=== PATIENT | male | born 1950 | race Caucasian/White ===

== ENCOUNTER 2018-11-22 14:02 | Inpatient (IN) | payer MEDICARE ==
[~2018-11-22] VITALS: Ht 170.2 cm; Wt 88.1 kg
[2018-11-22] MEDS ORDERED: OMEPRAZOLE20 MG PO (14:37)
[2018-11-22] MEDS ORDERED: NEURONTIN300 MG PO (14:37)
[2018-11-22] MEDS ORDERED: NORTRIPTYLINE H25 MG PO (14:37)
[2018-11-22] MEDS ORDERED: LIPITOR20 MG PO (14:38)
[2018-11-22] MEDS ORDERED: ROBAXIN-750750 MG PO (14:38)
[2018-11-22] MEDS ORDERED: LAMICTAL XR50 MG PO (14:39)
[2018-11-22] MEDS ORDERED: LOSARTAN POTASS25 MG PO (14:39)
[2018-11-22] MEDS ORDERED: GLUCOPHAGE500 MG PO (14:40)
--- NOTE | 2018-11-22 18:46 | NUR ---
NEW ADMIT TO THE FLOOR. PT SLEEPING, AROUSES TO VERBAL STIMULI, BUT THEN QUICKLY RETURNS TO SLEEP. PT SNORING LOUDLY. VS TAKEN AND ARE STABLE. AT BEDSIDE. PT HAS A SKIN TEAR TO LEFT AND RIGHT FOREARM(S), QUARTER SIZED ON BOTH. PER PT HAD THESE PRIOR TO ADMIT. STATES PT IS UNSTABLE ON FEET AND FREQUENTLY BUMPS THINGS WHEN HE WALKS ABOUT AT HOME. PT USES A CANE AND WALKER AT HOME. PT IS ON 2L OXYGEN, SAT LEVEL IS 96%. IV FLUIDS STARTED; NS@ 125ML/HR. STATES SHE IS UNABLE TO SPEND THE NIGHT. PT IS CURRENTLY A 1:1 WITH CUSTOMER CARE MANAGER, HE HAS DEMENTIA AND IS UNPREDICTABLE D/T DECREASE IN MENTATION UPON ADMIT. CALL LIGHT WITHIN REACH. CLOSE TO RN STATION.
--- NOTE | 2018-11-22 19:10 | NUR ---
SHIFT REPORT RECEIVED FROM DAYSHIFT ANGELA LEVIN. PT RESTING, RR EVEN AND UNLABORED. HX DEMENTIA. PT 1:1, CRISELDA EVANS IN ROOM WITH PT. CALL LIGHT IN REACH, BED ALARM ON.
--- NOTE | 2018-11-22 20:16 | NUR ---
Pt has been waking up off and on, he responded when I said "Hi" with a "hello" and fall asleep moments later.
--- NOTE | 2018-11-22 21:07 | NUR ---
ASSESSMENT COMPLETE. SCHEDULED MEDICATIONS GIVEN (SEE EMAR). PT VERY DROWSY, BUT AROUSABLE. WHEN ASKED IF PT HAD PAIN, PT STATED, "NO". PT PLACED ON CPOX, PT ON 2LNC, 02 SAT AND HR WNL. SCHEDULE CLERK CRISTINA IN ROOM. BED ALARM ON. IV FLUIDS INFUSING, SITE WNL. CALL LIGHT IN REACH.
--- NOTE | 2018-11-22 21:37 | NUR ---
ROUNDED CHARGE. PATIENT IS RESTING IN BED WITH EYES CLOSED. PAPER TESTER IN ROOM. BREATHING IS EVEN AND UNLABORED, RR 18. CALL LIGHT IN REACH. BED ALARM ON FOR SAFETY. CALL LIGHT IN REACH.
--- NOTE | 2018-11-22 23:33 | NUR ---
PT IN BED RAMBLING TO SELF AND NURSING STAFF. 2LNC IN PLACE, O2 SAT 97%, HR 84. PT STATES, "I HAVE A BIKE" AND "I WANNA GO HOME NOW". PT CONTINUES TO TALK TO SELF. CRISELDA EVANS IN ROOM WITH PT. CALL LIGHT IN REACH. BED ALARM ON. IV FLUIDS INFUSING, SITE WNL.
--- NOTE | 2018-11-23 00:21 | NUR ---
WITH THE HELP OF CRISELDA EVANS WE CHANGED PT'S ATTEND INCONTINENT OF URINE. STAYED IN THE ROOM FOR A BIT TO HELP CRISELDA EVANS WITH TRYING TO CALM PT .
--- NOTE | 2018-11-23 00:42 | NUR ---
pt took leads off multiple times and wants to go home. he tries to get out of bad to leave and i reassured him he is staying the night.
--- NOTE | 2018-11-23 00:50 | NUR ---
CRISELDA JANUARY IN ROOM WITH PT. PT 1:1. PT BECOMING BELIGERENT, YELLING PROFANITIES AT STAFF. PT SCRATCHED SENIOR SHIPPING CLERK. CRISELDA JANUARY AND SENIOR SHIPPING CLERK MANJU IN ROOM WITH PT. PT ATTEMPTING TO BITE AND FIGHT WITH NURSING STAFF. THIS RN NOTIFIED BY ANGELA HEREDIA OF PT'S INCREASING AGITATION. DR CLAY NOTIFED, TELEPHONE ORDER READ BACK FOR 0.5MG IM ATIVAN, MAY REPEAT X1. NO TIME PARAMETERS BETWEEN INTIAL DOSE AND REPEAT DOSE. PT ALSO PULLED OUT IV. IV SITE REINFORCED AND WRAPPED BY SENIOR SHIPPING CLERK. 0.5MG ATIVAN IM ADMINISTERED BY SENIOR SHIPPING CLERK. PT CURRENTLY FIGETING IN BED, TALKING TO SELF. CRISELDA JANUARY IN ROOM.
--- NOTE | 2018-11-23 01:53 | NUR ---
PT'S SELVIN CALLED FOR PT UPDATE. UPDATE PROVIDED, QUESTIONS ANSWERED.
--- NOTE | 2018-11-23 03:26 | NUR ---
PATIENT IS ATTEMPTING TO HIT OPERATIONS RESEARCH ANALYST. DINING ROOM TABLES SET UP ATTENDANT IN ROOM ATTEMPTING TO REDIRECT. UNABLE TO REDIRECT PATIENT. PATIENT IS YELLING PROFANITIES. PATIENT IS TRYING TO HIT STAFF. PATIENT GIVEN PRN MEDICATION PER MAR TO HELP WITH AGITATION. DINING ROOM TABLES SET UP ATTENDANT IN ROOM. CALL LIGHT IN REACH.
--- NOTE | 2018-11-23 04:48 | NUR ---
PT HAD A VERY BUSY AND ROGUH NIGHT. PT WAS INITIALLY COMPLIANT, BUT BECOME INCRESINGLY BELIGERENT TO STAFF. PT BEGAN TO YELL, FIGHT, AND SWEAR AT NURSING STAFF. ATIVAN X2 ADMINISTERED. PT REFUSES TO WEAR TELEMETRY AND PULLED OUT IV CATHETER. HX DEMENTIA. PT ON CLEAR LIQUID DIET, NO NAUSEA, BOWEL TONES ACTIVE. PT INCONTINENT. PT IS A ONE ON ONE W/ BED ALARM.
--- NOTE | 2018-11-23 05:44 | NUR ---
ASSESSMENT COMPLETE. NO NEW CONCERNS. ONE ON , VIDEO GAME CREATOR JANUARY IN ROOM WITH PT. ANGELA HERNANDEZ ATTEMPTING TO PLACE NEW IV. PT APPEARS COMFORTABLE, ALLOWED TO REST. CALL LIGHT IN REACH, BED ALARM ON.
--- NOTE | 2018-11-23 06:20 | NUR ---
NEW IV STARTED AND IV FLUIDS INFUSING. PATIENT TOLERATED IV START WELL. PATIENT CONTINUES TO RESET IN BED. ALARM ON. CALL LIGHT IN REACH.
--- NOTE | 2018-11-23 07:00 | NUR ---
RECIEVED BEDSIDE REPORT FROM ANGELA WALDROP. PT IN BED, SLEEPING SOUNDLY. BED ALARM ON, CURTAIN AND DOOR OPEN, ROOM IN VIEW OF NURSES' STATION.
--- NOTE | 2018-11-23 07:55 | EKG ---
[facility] [address] [place], [place] [address] Signed Normal sinus rhythm Normal ECG No previous ECGs available Confirmed by BRUCE CLAY MD ([id number]) on 11/23/2018 7:55:10 AM Electronically Signed By: BRUCE CLAY MD 11/23/18 0755 PATIENT NAME: PREETI KAT Electrocardiogram DATE OF : 48 PHYSICIAN: BRUCE CLAY MD REPORT #: [id number] REPORT IS CONFIDENTIAL AND NOT TO BE RELEASED WITHOUT AUTHORIZATION
--- NOTE | 2018-11-23 09:43 | NUR ---
PT IN BED, DR. CLAY AND CRISELDA TEJEDA IN ROOM WITH PT. PT AGITATED, GIVEN ZYPREXA 5 MG ODT.
--- NOTE | 2018-11-23 09:49 | NUR ---
PT IN ROOM SPEAKING WITH HIS . LOUDLY STATING THAT HE IS GOING TO LEAVE THE HOSPITAL TODAY TO GO HOME. PT'S LOUDLY TELLING PT "NO YOU ARE NOT". PT'S EXPLAINED TO PT THAT HE WOULD NEED TO SPEND AT LEAST ONE MORE NIGHT IN THE HOSPITAL. PT'S SITTING AT PT'S BEDSIDE. BED ALARM ON.
--- NOTE | 2018-11-23 10:00 | NUR ---
CARE CONFERENCE PRESENT DR CLAY, MYSELF, NURSING STAFF, PT AND HIS . TALKED BRIEFLY WITH THE PT , PT YELLING AND YELLING BACK AT PT DURING THIS. ATTEMPTING TO DO HIS ASSESSMENT AND THE KEPT YELLING AT PT TO "JUST SHUT UP, YOU DON'T KNOW WHAT YOU ARE TALKING ABOUT, YOUR CRAZY" TRIED TO DIVERT THE FROM PT VOICE AND TALK WITH ME REGARDING HIS CASE MANAGEMENT ASSESSMENT, DR CLAY ASKED HIS HX AND TOLD HER WHAT SHE FELT AT THIS POINT IN HIS CARE. MEANWHILE PT PUTTING LEG THROUGH THE SIDERAIL OF THE BED, ATTEMPTING TO PUT IT BACK IN THE BED. SELVIN (PT ) WAS TOLD THAT WE ARE ATTEMPTING TO SORT THINGS OUT ABOUT WHAT IS GOING ON WITH HER AND WE WOULD KEEP HER UPDATED.
--- NOTE | 2018-11-23 10:20 | NUR ---
PT AGITATED, STATING "THIS IS JUST ANOTHER RING AROUND MY NECK", "I WANT TO WALK HOME", "SEND ME TO ALCOHOL JI", ATTEMPTING TO GET UP TO LEAVE. GAVE ATIVAN ORDERED.
--- NOTE | 2018-11-23 10:33 | NUR ---
PT VERY AGITATED, ATTEMPTING TO LEAVE FLOOR, JOE TEJEDA JIM, AND NACHO, RNS IN ROOM WITH PT. EULOGIO AND ILEANA SPOKE WITH PT, ENCOURAGE HIM TO GET BACK INTO THE BED. AFTER SEVERAL MINUTES OF ENCOURAGEMENT AND COAXING PT DID LAY BACK IN BED.
--- NOTE | 2018-11-23 10:50 | NUR ---
PT RESTING QUIETLY IN BED, EYES CLOSED, SLEEPING SOUNDLY. NO S/S DISTRESS OR DISCOMFORT NOTED.
--- NOTE | 2018-11-23 12:28 | NUR ---
PT DROWSY BUT VERY AGITATED, CALLING OUT INCOMPREHENSIBLE WORDS, STRIKING AT STAFF WITH FISTS AND WITH FEET/LEGS. PT ATTEMPTING TO CLIMB OVER RAILING WITH EYES CLOSED, FLINGING LEG OVER RAILING, ATTEMPTING TO PULL SELF UP OVER RAIL WITH HANDS. PT HAD EYES CLOSED THROUGHOUT THIS. ATTEMPTED VERBAL REDIRECTION AND COMFORT, EDUCATION. ATTEMPTED TO OFFER URINAL MULTIPLE TIMES, WHICH PT THEN TRIED TO THROW AT STAFF. PT LEAKING SMALL AMOUNTS OF URINE WITH MOVEMENTS BUT CONTINUED TO REFUSE TO ALLOW STAFF TO ASSIST HIM IN USING URINAL, AND REFUSING TO USE URINAL HIMSELF. ATIVAN GIVEN BY ANGELA MORALES ORDERED BY DR. CLAY. PT HAS CALMED SOME SINCE THIS, STILL MUTTERING, BUT NOT ATTEMPTING TO HIT, KICK, OR PULL SELF OVER BED RAILINGS.
--- NOTE | 2018-11-23 13:00 | NUR ---
CALLED AND GAVE A MESSAGE TO JOSH AT [facility] THAT DR CLAY WOULD LIKE TO SPEAK WITH DR BROOKE(PT AT [facility]) AND SHE STATED SHE SENT A MESSAGE TO HIM AND HE WOULD CALL DR CLAY BACK. DR CLAY STATED THAT SHE RECIEVED A CALL FROM HIM A SHORT TIME LATER.
--- NOTE | 2018-11-23 15:09 | NUR ---
PT RESTING IN BED. EYES OPEN, CALM. ASKED PT IF HE NEEDED TO URINATE, PT RESPONDED THAT HE DID. ATTEMPTED TO ASSIST PT IN USING URINAL, PT ATTEMPTED TO VOID, BUT AFTER A COUPLE MINUTES STATED THAT HE DID NOT NEED TO GO. OFFERED WATER, PT DECLINED.
--- NOTE | 2018-11-23 15:25 | NUR ---
PT HAS A CONGESTED, NONPRODUCTIVE COUGH. LUNGS HAVE WHEEZES IN UPPERS AND ARE COARSE THROUGHOUT. OXYGEN SATURATON LEVEL ON RA 98%. NOTIFIED DR. CLAY OF THIS CHANGE IN PT ASSESSMENT. NO NEW ORDERS AT THIS TIME. PT SITTING IN BED, HOB ELEVATED.
--- NOTE | 2018-11-23 16:37 | NUR ---
PT RESTING QUIETLY, EYES CLOSED, SNORING. PT IN BED, HOB ELEVATED. BED ALARM ON.
--- NOTE | 2018-11-23 16:50 | NUR ---
TALKED WITH JOSH AT [facility] TO SEE WHAT SHE COULD DO OR HELP US WITH, SHE RECOMMENDED THAT I FILL OUT A [facility] FORM AND GET THAT SENT IN. I FILLED IT OUT AND FAXED IT TO THE # I WAS GIVEN--[phone]. I THEN RECIEVED A CALL FROM MAHNAZ AT THE [facility] SERVICE PORTION OF [facility]. SHE REQUESTED RECORDS BE SENT TO HER AND JOSH ALSO HAD REQUESTED RECORDS. I SENT FACE SHEET, ER NOTES, H AND P, PROG NOTES, IMAGING AND LABS TO THEM. RECIEVED FAX CONFIRMATIONS OF THESE ALSO.
--- NOTE | 2018-11-23 17:15 | NUR ---
PT CALLED AND WAS CONCERNED ABOUT THE PT AND HOW HE IS DOING, EXPLAINED THAT AT THIS TIME HE IS RESTING IN THE BED AND THAT WE WOULD KEEP HER UPDATED AND SHE SAID THEY ASKED ME TO STAY AWAY. I STATED THAT HE SEEMS TO GET MORE AGITATED WHEN SHE IS WITH HIM, AND SHE STATED SHE WOULD PROBABLY JUST STAY HOME ALOT THEN.
--- NOTE | 2018-11-23 19:20 | NUR ---
PT IN BED, YELLING OUT, TRYING TO GET OUT OF BED, WITH 2 EMBROIDERY DESIGNER'S PRESENT IN ROOM FOR SAFETY.
--- NOTE | 2018-11-23 20:28 | NUR ---
PATIENT IS INCREASINGLY AGITATED. PATIENTS EVENING MEDICATIONS CRUSHED AND GIVEN IN CHOCOLATE PUDDING. PATIENT STRUGGLED WITH FOLLOWING DIRECTIONS. PATIENT IS INCREASINGLY COMBATIVE. PATIENT IS VERBALLY AND PHYSICALLY ABUSIVE TOWARDS STAFF. PRN MEDICATION GIVEN PER ORDER. CARTRIDGE ASSEMBLER, CHARGE, RN, AND SEURITY IN THE ROOM. PATIENT FINALLY CALMED DOWN ENOUGH TO CHANGE BEDDING AND ATTENDS. NEW ATTEND IN PLACE. PATIENTS BED ALRM OS ON FOR SAFETY. STAFF IN DIRECT OBS OF PATIENT.
--- NOTE | 2018-11-23 20:37 | NUR ---
pt RESTING, SNORING. UNABLE TO ASSESS LOC. PULSES STRONG. DIFFICULT TO ASSESS LUNG SOUNDS WITH SNORING, BUT COARSE THROUGHOUT. TELE OFF DUE TO pt REFUSAL. IV INFUSING. BED ALARM ON. CURTAIN AND DOOR OPEN TO THE NURSES STATION.
--- NOTE | 2018-11-23 21:40 | NUR ---
RECEIVED PHONE CALL FROM PT SELVIN, INQUIRING HOW PT WAS. "SLEEPING". SELVIN STATED SHE HAD TO LEAVE HER VISIT EARLIER TODAY PT THOUGHT SHE WAS GOING TO "TAKE HIM HOME", BUT UNTIL SHE GETS HELP AT HOME, STATES "JENAE, MINER PLACER" IS [facility] STATES "I CAN'T TAKE CARE OF HIM IF HE IS ACTING OUT".
--- NOTE | 2018-11-23 22:13 | NUR ---
V/S AND I&O DONE. CHANGED SOAKED ATTENDS. BED ALARM ON.
--- NOTE | 2018-11-24 00:35 | NUR ---
pt RESTLESS. ENTERED ROOM WITH CRISELDA WEEMS. pt RESPONDED TO QUESTIONS WITHOUT MAKING SENSE. BECAME MORE AGITATED REQUIRING THIS RN AND FAUSTINA TO HOLD HANDS TO PREVENT STAFF INJURY. CHARGE NURSE INFORMED. ATIVAN ADMINISTERED PER ORDER. BY ANGELA NUNES, AND ANGELA IZAGUIRRE. pt CONTINUED TO BECOME AGITATED. DEPENDS CHANGED. IV TUBING LEAKING BLOOD. IV PATENT, TUBING CHANGED. IVF INFUSING. pt AGITATION DECREASED. ABLE TO DRINK SOME JUICE. LIGHTS OFF. pt AGREABLE TO RESTING. CURTAIN AND DOOR OPEN TO NURSES STATION.
--- NOTE | 2018-11-24 02:48 | NUR ---
pt ATTEMPTING TO EXIT BED. THIS RN AND CRISELDA WEEMS TO ROOM. DEPENDS SATURATED. PERICARE DONE WITH ASSISTANCE FROM CRISELDA PEREZ. RESTLESS, REORIENTED. OFFERED JUICE. ASSESSMENT DONE. FAUSTINA IN ROOM FOR 1:1.
--- NOTE | 2018-11-24 05:18 | NUR ---
pt RESTED ON AND OFF DURING SHIFT. 1:1. FREQUENTLY REORIENTED AND REMINDED TO REMAIN IN BED. ATIVAN X1 FOR AGITATION. pt REFUSES TO WEAR TELE UNIT. INCONTINENT. IVF INFUSING. REGULAR DIET, ONLY A FEW SIPS OF JUICE DURING SHIFT. BED ALARM ON.
--- NOTE | 2018-11-24 06:36 | NUR ---
pt RESTLESS AND AGITATED. PRN ATIVAN (SEE MAR). pt RESTING 1:1.
--- NOTE | 2018-11-24 08:29 | NUR ---
ATTEMPTED TO GIVEN THE PATIENT HIS MORNING MEDICATION AND HE REFUSED AT THIS TIME WITH MULTIPLE NURSES TRYING AND 5 STAFF AT BEDSIDE. PATIENT WAS VERY COMBATIVE WITH STAFF ATTEMPTING TO HIT, KICK AND BITE. DOCTOR OBED NOTIFIED AND 50 MG OF BENADRYL GIVEN IV AT THIS TIME. ATTENDS CHANGED AND MARIO CARE DONE. DURING THIS PATIENT DID SPIT AT STAFF WHEN THEY ATTEMPTED TO GIVE HIM A BITE OF YOGURT.
--- NOTE | 2018-11-24 09:01 | NUR ---
[facility] CONTACTED AND REHABILITATION NURSE WILL BE HERE SOON TO EVALUATE.
--- NOTE | 2018-11-24 09:38 | NUR ---
PATIENT NOW A 2 ON 1 DUE TO BEING VERY COMBATIVE. TOOK 5 STAFF IN ROOM TO CHANGE DEPENDS AND GIVE MEDS. PATIENT REFUSES TO EAT.
--- NOTE | 2018-11-24 09:51 | NUR ---
ASSUMED CARE FOR PATIENT, REPORT RECIEVED FROM ANGELA BONE AND DR. CLAY. PATIENT VITALS ARE STABLE, PRESENTLY SLEEPING, ATTENDS ARE DRY.
--- NOTE | 2018-11-24 10:07 | NUR ---
PATIENT IS SLEEPING, APNEA OBSERVED WITH 89% SATS. 3L OF O2 VIA NASAL CANNULA PLACED AND PATIENT IS 95%
--- NOTE | 2018-11-24 10:57 | NUR ---
PATIENT IS SLEEPING, OCCASIONALLY RESTLESS. OXYGEN IS ON AT 2L, NOTED INACCURATELY 3L IN PREVIOUS NOTE.
--- NOTE | 2018-11-24 12:00 | NUR ---
LATE ENTRY: PATIENT WAS COMBATIVE AND WAS THREATENING STAFF, I WAS HOLDING HIS RIGHT ARM DURING THIS STRUGGLE AND HE SPIT HIS YOGURT AT ME. LATER THAT DAY HIS CAME IN AND IT WAS PERFECT TIMING BECAUSE [facility] HAD JUST ARRIVED BACK TO DO THEIR ASSESSMENT. HIS WAS STANDING IN FRONT OF ME AT MY COMPUTER AND SHE WAS ASKING HOW HE WAS TODAY AND I COMMENTED THAT I WAS ISRA TO HAVE GLASSES ON BECAUSE THEY CAUGHT THE YOGURT HE SPIT AT ME. SHE REPLIED WITH THAT SON OF A BIT*H, I WOULD HAVE KNOCKED HIM OUT IF HE TRIED THAT TO ME. BUT ALSO MENTIONED THAT HE KNOWS BETTER THAN TO SPIT AT HER. SHE THEN TOLD ME THAT WE NEEDED TO JUST OVER MEDICATE HIM TO KNOCK HIM OUT. THAT WAY WE DONT HAVE TO DEAL WITH HIM. I TOLD HER WE DONT DO THAT.
--- NOTE | 2018-11-24 12:11 | NUR ---
WILLIE WITH [facility] IS AT NURSES STATION REVIEWING CHARTS AT THIS TIME BEFORE ASSESSING PT
--- NOTE | 2018-11-24 13:20 | NUR ---
[facility] IN TO ASSESS PATIENT, UNABLE TO COMPLETE THIS DUE TO PATIENT BEING MEDICATED, PLAN TO TRY AND ASSESS LATER TODAY WHEN HE WAKES UP. PATIENT IS ON ROOM AIR WITH 96% O2 SATS, IV FLUID CONTINUES. PATIENT IS OCCASIONALLY AGITATED, BUT IS NOT FULLY AWAKE OR ABLE TO GET OUT OF BED. PATIENT DENIES PAIN, UNABLE TO HAVE LUNCH DUE TO CONFUSION.
[2018-11-24] MEDS ORDERED: VENTOLIN HFA18 GM INH (13:41)
[2018-11-24] MEDS ORDERED: SYMBICORT 80-10.2 GM INH (13:42)
[2018-11-24] MEDS ORDERED: ALUM-MAG HYDRO360 ML PO (13:43)
[2018-11-24] MEDS ORDERED: ARTHRITIS PAI42.5 GM TOP (13:45)
[2018-11-24] MEDS ORDERED: REFRESH PLUS1 EACH OPTH (13:47)
[2018-11-24] MEDS ORDERED: VITAMIN D1000 UNI1 PO (13:48)
[2018-11-24] MEDS ORDERED: FISH OIL 1,0001 EAC3 PO (13:49)
[2018-11-24] MEDS ORDERED: NEURONTIN300 MG PO (13:50)
[2018-11-24] MEDS ORDERED: IBU600 MG PO (13:52)
[2018-11-24] MEDS ORDERED: LAMICTAL150 MG PO (13:53)
[2018-11-24] MEDS ORDERED: ROBAXIN500 MG PO (13:54)
[2018-11-24] MEDS ORDERED: DAILY VITAMIN1 EAC3 PO (13:57)
[2018-11-24] MEDS ORDERED: PAMELOR50 MG PO (13:58)
[2018-11-24] MEDS ORDERED: KLOR-CON 1010 MEQ PO (13:59)
[2018-11-24] MEDS ORDERED: LIPITOR40 MG PO (14:07)
--- NOTE | 2018-11-24 14:07 | NUR ---
MED REC COMPLETE WITH [facility]
--- NOTE | 2018-11-24 15:28 | NUR ---
PATIENT IS MORE AWAKE, ABLE TO HAVE SEVERAL SIPS OF WATER AND 1/2 CUP OF APPLESAUCE. PATIENT IS ABLE TO ANSWER SOME QUESTIONS, LIKELY CALL [facility] AND HAVE THEM RETURN TO EVALUATE PATIENT.
--- NOTE | 2018-11-24 17:15 | NUR ---
PT WAS HERE DURING THIS AFTERNOONS VISIT WITH PT.
--- NOTE | 2018-11-24 17:22 | NUR ---
[facility] IN TO SEE PATIENT. PATIENT'S CAME IN TO SPEAK WITH [employer], BUT DID NOT VISIT .
--- NOTE | 2018-11-24 17:23 | NUR ---
PATIENT HAS BEEN ABLE TO SLEEP TODAY, MEALS HAVE BEEN PASSED ON. Close CAME IN TWICE TO TALK TO PATIENT. PLAN IS FOR [facility] TO DISCUSS WITH V.A. PLACEMENT POSSIBILITIES. PATIENT HAS BEEN INCONTINENT ON MULTIPLE OCCASIONS. PATIENT ABLE TO HAVE SIPS OF WATER AND APPLESAUCE THIS EVENING. HE CONTINUES TO BE EASILIY AGITATED WITH MULTIPLE STEP PROCEDURES/CARE INTERVENTIONS.
--- NOTE | 2018-11-24 17:25 | NUR ---
HAD SEVERAL PHONE CONVERSATIONS THROUGHOUT THE DAY WITH JOSH AND MAHNAZ AT THE [facility], JOSH GAVE ME THE NUMBER OF A FACILITY IN [facility] @ [phone] EXT [phone]. SHE STATED SHE IS NOT SURE IF THIS IS APPROPRIATE FOR THIS VET OR NOT.
--- NOTE | 2018-11-24 19:07 | NUR ---
SHIFT REPORT RECEIVED AT BEDSIDE. PATIENT IN BED WITH EYES OPEN. REPLIES "CAGLE RASHAD" WHEN ASKED IF HE KNOWS WHERE HE IS. OFFERED PATIENT SIPS OF WATER WHICH HE TOLERATED WELL. PATIENT REMAINS 1:1 AT THIS TIME FOR SAFETY. APPEARS CALM AT THIS TIME.
--- NOTE | 2018-11-24 20:47 | NUR ---
PATIENT REMAINS A 1:1 PER STAFF ASSIGNMENT. HAS BEEN RESTING EASILY IN BED SINCE START OF SHIFT. PATIENT COMPLAINT WITH MEDICATIONS AND VITAL SIGNS. PATIENT'S CALLED AND STAFF ASSISTED HIM IN SPEAKING WITH HER ON THE PHONE. PATIENT ABLE TO HAVE CONVERSATION, HOWEVER SOME SPEECH IS SLURRED. PATIENT VERBILIZED CONCERNS WITH PATIENT'S POSSIBLE PLACEMENT FAR FROM HOME MENTIONED BY [employer], ASSURED THAT HER CONCERNS WOULD BE RELAYED TO CASE MANAGEMENT AND [facility]. PATIENT TOLERATING SIPS OF WATER WITH ASSISTANCE. DECLINES PUDDING OR CRACKERS. IV FLUIDS PER ORDER, SITE WNL. PATIENT HAS MULTIPLE BRUISES IN VARIOUS STAGES OF HEALING. SKIN TEAR ON RIGHT FOREARM COVERED, DRESSING C/D/I. PATIENT INCONTINENT OF URINE, ATTENDS CHANGED AND MARIO CARE DONE WITHOUT RESISTANCE. PATIENT TURNED TO LEFT SIDE TO PROMOTE SKIN INTEGRITY. PATIENT SNORING AND OCCATIONALLY APNEIC, O2 SAT 86& ON ROOM AIR. 2L O2 VIA NC PLACED WHILE SLEEPING. HEEL PROTECTORS IN PLACE. BED ALARM ON. IN CONSTANT LINE OF RN SIGHT.
--- NOTE | 2018-11-24 21:08 | NUR ---
PATIENT WAS SLEEPING AND BECAME AGITATED AND THRASHING AROUND IN THE BED. PATIENT APPEARED TO BE ASLEEP AT THIS POINT, POSSIBLE NIGHT TERRORS. WOKE PATIENT AND REORIENTED TO SURROUNDINGS. PATIENT THEN ABLE TO BE CALMED. OFFERED CRACKERS AND WATER, WHICH THE PATIENT TOLERATED WELL.
--- NOTE | 2018-11-24 21:55 | NUR ---
PATIENT BECOMING MORE RESTLESS. ATTEMPTING TO BED OUT OF BED. ATTEMPTED TO REORIENT PATIENT. HE IS CALM BUT CONFUSED. PRN MEDICATION FOR INSOMNIA PROVIDED. PATIENT ABLE TO SIP SOME WATER AND EAT A CRACKER. DENIES ANY FURTHER NEEDS. REMAINS 1:1
--- NOTE | 2018-11-24 22:46 | NUR ---
PATIENT APPEARS TO BE ASLEEP BUT IS CALLING OUT AND MAKING "GROWLING" NOISES. HOB ELEVATED, REPOSITIONED FOR COMFORT. PATIENT APPEARS COMFORTABLE, TALKING IN HIS SLEEP.
--- NOTE | 2018-11-25 00:30 | NUR ---
PATIENT CALLING OUT AND THRASHING IN BED. PRN ATIVAN PROVIDED. PATIENT'S ATTENDS HEAVILY SOAKED. MARIO CARE AND FRESH ATTENDS APPLIED. REPOSITIONED FOR COMFORT.
--- NOTE | 2018-11-25 03:10 | NUR ---
PATIENT SLEEPING SOUNDLY. OCCATIONAL CONGESTED COUGHING NOTED. RT EVALUATED PATIENT, UPPER AIRWAY WHEEZE HEARD. PATIENT O2 SAT 98% ON 2L NC. OCCATIONAL APNEA EPISODES NOTED. HOB ELEVATED.
--- NOTE | 2018-11-25 05:15 | NUR ---
PATIENT INCONTINENT OF LARGE AMOUNT OF URINE. PATIENT'S BEDDING AND ATTENDS CHANGED. POSITIONED FOR COMFORT. PATIENT INCREASINGLY AGITATED WITH CARE. ONCE PATIENT SETTLED HE APPEARS MORE AWAKE, RESPONDS TO HIS NAME BUT UNABLE TO ANSWER QUESTIONS APPROPRIATELY. ORAL CARE AND LIP BALM APPLIED. PATIENT REQUEST TV WHICH WAS TURNED ON FOR HIM. SIPS OF WATER OFFERED. PATIENT REMAINS 1:1 FOR SAFETY.
--- NOTE | 2018-11-25 06:46 | NUR ---
PATIENT WAS RESTLESS OCCATIONALLY THROUGHOUT THE NIGHT. FREQUENT DROWSY BUT EASILY AROUSABLE. DISORIENTED TO ALL, SPEECH SLURRED. 2L NC TO MAINTAIN O2 >88%. LUNG SOUNDS ARE CONGESTED AND PATIENT HAS OCCATIONAL CONGESTED COUGH. URINE OUTPUT QS, INCONTINENT. NO BM THIS SHIFT. IV FLUIDS PER ORDER, SITE WNL. PATIENT TOLERATING SIPS OF WATER WHEN OFFERED. TURN Q2H. SKIN TEAR ON RIGHT ARM COVERED. PATIENT REMAINS 1:1 FOR SAFETY, PRN ATIVAN X1.
--- NOTE | 2018-11-25 07:22 | NUR ---
Pt resting supine in bed, alert to voice and appears to be in no acute distress. Bed alarm on and pt offered and drinks some ice water at this time. pt tells offgoing nurse benton. Bedside report received from ANGELA Venegas. adrian geronimo updated. pt remains on 2lpnc for reports of desatting to 86% on room air in the night. Pt denie further needs and is within view of nursing station.
--- NOTE | 2018-11-25 08:33 | NUR ---
Pt tolorates approx 50% of breakfast and drinks 120mls of orange juice. Pt states "When do I get to see the doctor?" Pt assured md will be in to see him today. Pt is a/o to person though disoriented to date, time, place and when asked if he knows why he is here pt states "[facility] Pt assessment completed and pt mumbles sometimes incomprehensibly during exam. "can I get out of my walker?" pt resting in bed "I'm back at the gate, turn right." Pt denies needs and states he is comfortable. bed alarm on and fall lakisha and side rail cushions in place for safety. Respirations even and unlabored and pt appears to be in no acute distress.
--- NOTE | 2018-11-25 10:00 | NUR ---
SPOKE WITH WILLIE GUTIERREZ FROM [employer] AND HE STATED HE HAD BEEN ON THE PHONE WITH REZA--DR LOPEZ NURSE AND SHE TOLD HIM TO TRY THE [facility] [place] @ [phone] ASK FOR FAWN, STATING THAT REZA HAD TOLD HIM THEY HAD A LOCKED UNIT FOR PT WITH PSYCH ISSUES.
--- NOTE | 2018-11-25 10:40 | NUR ---
IV FOUND TO BE LEAKING, SLIGHT SWELLING NOTED TO IV SITE, NO REDNESS OR WARMTH. IV FLUIDS PAUSED AND SEVERAL NURSES AND RT IN TO ASSIST WITH NEW IV START. AFTER COBAN REMOVED AND SOME TAPE REMOVED FROM OLD IV SITE PT GRABS IV AND RIPS IV OUT OF LEFT FOREARM. PT SQUIRMING AND MUMBLING INCOMPREHENSIBLY. 18 GUAGE IV STARTED TO LEFT AC WITH SOME DIFFICULTY DUE TO PT KICKING AND ATTEMPTING TO BITE AND HIT AT STAFF. 1MG IV ATIVAN ADMINISTERED AFTER SEVERAL FAILED ATTEMPTS TO CALM PT DOWN. PT DENIED NEED FOR TOILET OR ICE WATER. BED ALARM ON AND PT REMAINS ONE ON ONE FOR SAFETY.
--- NOTE | 2018-11-25 11:04 | NUR ---
PT RESTING SUPINE IN BED EYES CLOSED AND RESPIRATIONS EVEN AND UNLABORED. O2 SAT 97% ON ROOM AIR, HR80 AND RR 18. PT REMAINS ONE ON ONE FOR SAFETY.
--- NOTE | 2018-11-25 12:54 | NUR ---
pt resting supine in bed, eyes closed and respirations even and unlabored. o2 sat 99% on RA, HR 75. Bed alarm on and pt remains one on one for safety.
--- NOTE | 2018-11-25 13:00 | NUR ---
I LATER SPOKE WITH REZA AT [facility], DR LOPEZ NURSE DOOR TENDER AND SHE STATED THAT SHE WOULD BE WILLING TO HELP AND THAT SHE IS AWAITING RECORDS FROM ONE OF THE OTHER OFFICES, AND SUGGESTED I GET A HOLD OF JOSH IN THE [facility] OFFICE I TOLD HER I HAVE BEEN TALKING WITH HER. I ALSO GAVE HER DR BERMUDEZ HOSPITALIST PHONE NUMBER DR CLAY WAS WANTING TO SPEAK WITH DR RUIZ THE PT PSYCHIATRIST AT THE [place]. SHE STATED SHE WOULD GET THE MESSAGE TO HIM SO THEY COULD HAVE A TO CONVERSATION ABOUT THIS PT PSYCH HISTORY.
--- NOTE | 2018-11-25 13:30 | NUR ---
DISCUSSION WITH DR CLAY REGARDING REFERRAL TO [facility] FOR POSSIBLE HELP IN PLACEMENT FOR PATIENT. SHE IS IN AGREEMENT. FORM FILLED OUT BY FULLING MACHINE OPERATOR JENAE SCOTT, FORM SENT BACK BY SECURE EMAIL TO ANGELA SANCHES.
--- NOTE | 2018-11-25 14:43 | NUR ---
CALLED [facility] AT [phone] TO DISCUSS PATIENT AND POSSIBLE PLACEMENT OPTIONS IN THE [place]. HE IS SENDING A REFERRAL FORM TO BE FILLED IN AND RETURNED TO GIVE TO THEIR CASE MANAGEMENT TEAM. HE WILL SEND THIS BY SECURE EMAIL.
--- NOTE | 2018-11-25 15:30 | NUR ---
Pt resting supine in bed, attends and chucks saturated with urine so pt was assisted in cleaning and changing attends with assistance from supervisor in charge and ANGELA Cruz. Pt tolerated well. Pt makes minimal responses and appears to remain drowsy but is alert intermittantly to voice and mumbles incomprehensibly. Pt assisted in turning to right lateral side and warm blanket provided. Assessment completed. VSS. Bed alarm on and pt remains a 1 on 1.
--- NOTE | 2018-11-25 16:41 | NUR ---
Pt slept much of day. alert to voice and oriented to person only. Pt mumbles moslty unintelligibly off and on through the day. Pt grew increasingly agitated after tolorating 50% of his breakfast and required prn x1 dose of iv ativan for agitation after pt ripped out iv and began swinging arms and biting at staff. Pt proceeded to sleep most of the day. Pt continues to mumble incomprehensibly off and on. Pt continues with congested but nonproductive cough. Pt has satted in mid to high 90's on room air throughout the day. pt has remained incontinant of large amounts of urine throughout the day. Pt receiving IV maintenance fluids as ordered. Pt has remained one on one throughout this shift due to safety risk. See case management note regarding status of potential placement.
--- NOTE | 2018-11-25 16:58 | NUR ---
PATIENTS CALLED TODAY TO CHECK ON HIM AND SAID TO KEEP HIM SLEEPING AND THAT SHE WAS NOT COMING IN TODAY.
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
--- NOTE | 2018-11-25 17:32 | NUR ---
Pt resting supine in bed, hugging himself. When pt asked if he would like an additional warm blanket pt states "yes warm blanket". Pt provided with warm blanket. Pt looks at dinner tray and motions towards it pt asked if he would like to eat some more of his dinner and pt states "yes". Pt up to high fowlers position and is assisted with eating. Pt eats approx 60% of dinner and approx 300 mls of juice. Pt is able to tell me his name and date of but when asked where he is pt states [facility]" Pt reoriented to place and situation. Pt assisted back down to position of comfort pt states "there" when head of bed was being lowered and when asked if pt is comfortable pt states "yeah". Pt resting in bed eyes closed and respirations even and unlabored. Pt then clearly states "can we speak in here freely?" Pt encouraged to speak his mind and then drifts back off to sleep.
--- NOTE | 2018-11-25 19:20 | NUR ---
REPORT FROM MIGUEL PATEL RN, RECEIVED IN PT ROOM. PT WITH EYES CLOSED, NO THRASHING OR HOLLERING OUT AT THIS TIME. IV INFUSING, LAC, COBAN WRAPPED AROUND ARM. ROOM AIR, SATING AT 98%. SEIZURE PADS IN PLACE, FALL MAT ON RIGHT SIDE OF BED ON FLOOR.
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
--- NOTE | 2018-11-25 21:23 | NUR ---
PT CALLED AT 2100, REPORT GIVEN. SHE WAS WONDERING ABOUT HEAD INJURY, ABOUT A BLADDER/UTI/KIDNEY INFECTION THE CAUSE OF HIS COGNITION. REASSURED . SHE EXPRESSED GREAT CONCERN ABOUT HIM BEING "SENT AWAY FROM [place]". REASSURANCE GIVEN THAT MAYBE THE ONLY OPTION TO FIND A PROVIDER THAT CAN MEET HIS NEEDS.
--- NOTE | 2018-11-25 22:24 | NUR ---
PT CURRENTLY SLEEPING, STIRS OCCASSIONALLY WITH MOUTH OPEN TRYING TO BITE THE LEFT ARM THAT IS WRAPPED WITH BLANKET, LEFT ARM WITH SEVERAL SLOUGHING SKIN FROM THE KCL LEAKING TO SKIN WHEN IV WAS DC, WELL FORMED BLISTERS NOTED IN BICEP. PREVENTING PT FROM FURTHER INJURY. PLAN TO REWRAP BICEP. PT REQUIRED THE ASSIST OF 4 STAFF TO START A NEW IV IN THE RIGHT WRIST, POWER TONG OPERATOR YASMANY ABLE TO PUT A 20 G IN R WRIST, PT TOLERATED POOR, TRYING TO HIT, BITE, KICK. MED WITH 1 MG ATIVAN PER IV. ATTEMPT TO DO A BLOOD PRESSURE WAS MET WITH RESISTANCE, ABLE TO GET OTHER VS. SATING AT 98% ON RA. NS INFUSING PER ORDER.
--- NOTE | 2018-11-25 23:30 | NUR ---
THIS RN WELL RN, ATTEMPTED TO ADMINISTER HIS MEDICATIONS, GIVE HIM WATER. WILLINGLY TOOK DRINK WATER, ATTEMPTED TO GIVE MEDICATIONS WHOLE, HE TOOK ANOTHER DRINK, THEN SPIT OUT ONE MED, WELL SPEWED WATER AT . ATTEMPTED WHOLE MEDS WITH PUDDING, AGAIN HE SPIT OUT. CRUSHED MEDS IN JACQUELINE PUDDING, WITH MORE SUCCESS, JACQUELINE ENSURE, AFTER 30 MIN, HE TOOK MOST OF THE MEDICATIONS, NO AGGRESSIVE BEHAVIOR TOWARD THIS RN DURING THIS TIME. CONVERSATION WAS LIGHT, HE LAUGHED OCCASSIONALLY. NEEDED INCREASED CUEING TO SWALLOW THE PUDDING, AND NOT SLEEP. ALLOWED A SWAB TO "CLEAN HIS TEETH", BUT WHEN ASKED IF HE WOULD REMOVE HIS TEETH, HE DIDN'T MAKE ANY MOTION TO DO SO, AND BECAUSE THE RISK OF BITING, TEETH REMAIN IN PLACE. DID ALLOW FACE TO BE WASHED, WELL HANDS.
--- NOTE | 2018-11-26 00:05 | NUR ---
PT CURRENTLY REMAINS ON HIS BACK WITH BLANKETS COVERNG HIM. SLIGHT SNORING HEARD. SPOT CHECK ON O2 SATS: 94% ON ROOM AIR, OPENED EYES BUT QUICKLY CLOSED, NO AGGRESSIVE BEHAVIOR AT THIS TIME.
--- NOTE | 2018-11-26 00:34 | NUR ---
RECEIVED REPORT ON PT. HE IS RESTING AT THIS TIME WITH EYES CLOSED, RR IS EVEN AND NONLABORED. BED ALARM IS ON, CALL LIGHT IS CLOSE, HE IS VISABLE FROM NURSES STATION.
--- NOTE | 2018-11-26 02:14 | NUR ---
PT IS RESTING WITH EYES CLOSED, RR IS EVEN AND NONLABORED. CALL LIGHT IS CLOSE, BED ALARM IS ON AND PT IS VISABLE FROM NURSES STATION.
--- NOTE | 2018-11-26 04:00 | NUR ---
PT IS LAYING AWAKE IN BED, HE IS CLOSE TO NURSES STATION AND BED ALARM IS ON.
--- NOTE | 2018-11-26 05:13 | NUR ---
WITH THE HELP OF RN'S DMITRIY AND BRIGIDO WE CHANGED PT'S ATTEND , GOT HIM TWO WARM BLANKETS.
--- NOTE | 2018-11-26 05:26 | NUR ---
ATTENDS CHANGED WITH A TOTAL OF 3 NURSING STAFF. PT COOPERATED GOOD CAN BE EXPECTED AT THIS TIME. LUNGS ARE DIFFICULT TO AUSCULATE PT HAS HARD TIME FOLLOWING COMMANDS/QUES. HE HAS WARM BLANKETS IN PLACE AND IS NOW RESTING WITH EYES CLOSED.
--- NOTE | 2018-11-26 07:03 | NUR ---
PT IS AGITATED AND TRYING TO GET OUT OF BED SWINGING ARMS. ADMINISTERED IV ATIVAN. ANOTHER NURSE IS 1-1 WITH PT IN THE ROOM AT THIS TIME.
--- NOTE | 2018-11-26 08:04 | NUR ---
RECEIVED REPORT AT 0700, FOUND PT IN BED WITH SEVERAL NURSES PRESENT. PT WAS AGITATED AND 1MG OF ATIVAN WAS GIVEN AT SHIFT CHANGE. PT HAS REMAINED AGITATED AND UNCOOPERATIVE. PT REFUSES TO EAT, PT NEEDS 2 PEOPLE PRESENT AT THIS TIME. PT DID LET ME AUSULTATE HIS LUNGS IN THE FRONT AND EXPIRATORY WHEEZING WAS HEARD. PT KEEPS PULLING OFF HIS BRIEF AND BLANKET SINCE START OF SHIFT. PT ALSO IS TRYING TO GET OUT OF BED CONSTANTLY. WILL CONTINUE TO MONITOR.
--- NOTE | 2018-11-26 08:20 | NUR ---
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 ALSO THAT ABOUT 4 YEARS AGO HE HAD STAYED IN BED FOR A YEAR TAKING LOTS OF MEDS AND BEING VERY DEPRESSED.
--- NOTE | 2018-11-26 08:27 | NUR ---
CALLS MADE TO [facility] @[phone] MESSAGE LEFT FOR THEN TO CALL REGARDING THIS PATIENT. CALL MADE TO [facility] @[phone] FOR FAWN TO CALL, MESSAGE LEFT THERE ALSO.
--- NOTE | 2018-11-26 09:11 | NUR ---
PT IS RESTING AND CALMED DOWN SINCE RECIEVING ATIVAN, CONT. TO REFUSE ATTEMPTS TO GIVE FLUIDS OR EAT. HE CONT. TO PICK AT BRIEF AND WON'T ALLOW BLANKETS TO COVER HIM. TWO PEOPLE AT BEDSIDE FOR PATIENT AND STAFF SAFETY. DR PAUL IN TO SEE PATIENT AND LOOK AT BLISTERS ON L UPPER ARM. SWELLING AND REDNESS MUCH IMPROVED. ARM IS WARM WITH STRONG PULSES.
--- NOTE | 2018-11-26 09:30 | NUR ---
CALLED [facility] @ [phone], TALKED WITH THE ADMISSION RN, HER NAME IS ALEXANDRE. SHE STATED THAT THEY WOULD NEED A MOCA TEST SCORE FROM THE DR. TOLD HER I COULD SEND RECORDS TO FAX #[phone]. THEY WOULD REVIEW CHART NOTES, AND SEE IF HE WOULD BE APPROPRIATE FOR THEIR FACILITY, BUT SHE SAID FOR THE FINAL REVIEW THEY WOULD NEED THE MOCA TEST RESULTS AND HIS PSYCH NOTES FROM [facility], WHICH WILL NEED A MARTIN FROM HIM OR HIS WHEN SHE GETS THE POA.
--- NOTE | 2018-11-26 10:00 | NUR ---
PT AT THIS TIME IS RESTING. PT IS CALM AT THIS TIME.
--- NOTE | 2018-11-26 10:00 | NUR ---
PHONE CALL WITH JOSH FROM THE [facility], DISCUSSION WAS HAD ABOUT [facility] FACILITIES , I WILL CONTACT THEM.
--- NOTE | 2018-11-26 11:05 | NUR ---
TALKED WITH OLIVIA FROM [facility], SHE STATES THEY HAVE NO BEDS AVAILABLE AND A LONG WAITING LIST. 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
--- NOTE | 2018-11-26 11:13 | NUR ---
PT AT THIS TIME IS ALERT AND TALKING TO MD CLAY. PT IS ALSO TAKING HIS MEDICATIONS PO WITHOUT ISSUES.
--- NOTE | 2018-11-26 12:00 | NUR ---
PT DID EAT A FEW BITES OF HIS LUNCH. PT WAS COOPERATIVE AND CALM AT THAT TIME.
--- NOTE | 2018-11-26 12:18 | NUR ---
RECIEVED FAX CONFIMATION FROM [facility].
--- NOTE | 2018-11-26 12:19 | NUR ---
FAXING CHART NOTES TO [facility], INCLUDING FACE SHEET, ER NOTES AND SUMMARY, H AND P, PROG NOTES, IMAGING, MEDS, LABS AND NURSING NOTES.
--- NOTE | 2018-11-26 12:50 | NUR ---
CALLED [facility] @[phone], MESSAGE LEFT TO CALL ME BACK. CALLED [facility], TALKED TO ANDREW THERE AND SHE STATED THEY ARE NOW JUST STRICTLY AN ASSISTED LIVING FACILITY BUT SHE DID REFER ME TO [facility] @ [phone] TO SPEAK WITH JEFF EWING. CALLED AND SPOKE WITH ADAIR, SHE SAID THEY DO HAVE A LOCKED UNIT BUT THE TYPE OF CARE HE WOULD BE NEEDING IS NOT APPROPRIATE FOR THEIR FACILITY. CALLED THE [facility] AND WAS INFORM BY NAGI THAT UNLESS THE PT IS IN HALF-WAY, OR COURT ORDERED THEY WOULD NOT BE ABLE TO ADMIT HIM TO THEIR FACILITIES. ALSO STATED THEY NEED TO BE IN DIRECT PSYCHIATRIC CARE BY A PSYCHIATRIST FOR 14 DAYS THEN THEY MAY CONSIDER TAKING PT.
--- NOTE | 2018-11-26 13:00 | NUR ---
FAXED CHART NOTES FAXED TO [facility] INCLUDING FACE SHEET, ER NOTES AND SUMMARY, H AND P, PROG NOTES, IMAGING, MEDS, LAB, NURSING NOTES.
--- NOTE | 2018-11-26 13:10 | NUR ---
RECIEVED A FAX CONFIRMATION FROM [facility] FAX.
--- NOTE | 2018-11-26 13:35 | NUR ---
CALLED [facility] BACK AGAIN, A KRISTINE TOOK THE INFORMATION I HAD ABOUT THE PT BRIEF HISTORY PROVIDED AND STATED THAT THE ADMISSIONS INTAKE PERSON WOULD CALL BACK THIS AFTERNOON, HER NAME IS ANGIE. [phone] IS PHONE NUMBER FOR THE FACILITY.
--- NOTE | 2018-11-26 14:16 | NUR ---
PT AT THIS TIME IS SLEEPING.
--- NOTE | 2018-11-26 15:05 | NUR ---
RECIEVED A MESSAGE THAT DAMION FROM [facility] CALLED, WANTED ME TO CALL HER BACK AT [phone], RETURNED HER CALL AND SHE STATED BEFORE THEY CAN MAKE ANY KIND OF DECISION ABOUT THIS PT EVEN AFTER RECIEVING OUR RECORDS, THEY SAID THEY NEED THE MOCA TEST DONE. DR CLAY STATED SHE ORDERED TO HAVE THIS TEST DONE BY . ST STATES THEY ARE UNABLE TO PERFORM THIS TEST YET BUT WILL WHEN THEY CAN AND WHEN HE IS ABLE IT IS HIS BEHAVIORS THAT ARE NOT ALLOWING THEM TO DO THE TEST. INFORMED HER THAT SOON WE ARE ABLE TO WITH PT COOPERATION WE WILL DO THAT TEST.
--- NOTE | 2018-11-26 16:54 | NUR ---
PT AT THIS TIME IS STILL SLEEPING. PER REPORT SLEEPING DURING THE DAY IS HIS NORMAL SCHEDULE. PT IS UP ALL NIGHT AT HOME. LAB DRAW AND EKG WAS DONE. V/S ARE WDL.
--- NOTE | 2018-11-26 18:18 | NUR ---
AT START OF SHIFT PT WAS VERY AGITATED AND REQUIRED 4 STAFF TO CHANGE HIS BRIEF. 1MG IV ATIVAN WAS GIVEN. AT AROUND 1100 PT SUDDENLY BECAME ALERT AND HAD ASKED FOR SOME ICE CREAM AND A SPRITE. PT TALKED TO MD CLAY FOR A SHORT WHILE. SINCE THEN PT HAS BEEN SLEEPING. IT IS MY UNDERSTANDING THAT THIS PT GOES TO BED AT AROUND 0500 AT HOME AND SLEEPS ALL DAY. THE ZYPREXA GIVEN THIS MORNING ALSO CAN FACILITATE THE SLEEPING.
--- NOTE | 2018-11-26 19:02 | NUR ---
SHIFT REPORT RECEIVED FROM DAYSMEFT ANGELA VILLALBA. PT AWAKE, RR EVEN AND UNLABORED. PT 1:1. PT INTERMITTENTLY CONVERSING WITH NURSING STAFF, APPEARS COMFORTABLE. IV FLUIDS INFUSING PER MD ORDERS. CALL LIGHT IN REACH. SUPERVISOR ABATTOIR JANUARY IN ROOM WITH PT. CALL LIGHT IN REACH. BED ALARM ON.
--- NOTE | 2018-11-26 20:07 | NUR ---
I ASKED PT IF HE COULD PULL HIS DENTURES OUT AND I WOULD CLEAN AND SOAK THEM. HE DID. TURNED UP THE T.V. FOR HIM SO HE COULD WATCH A SHOW THAT WAS ON. I ASKED HIM IF THERE WAS ANYTHING I COULD DO FOR HIM? HE SAID NO. AT THE MOMENT HE IS CALMLY WATCHING T.V.
--- NOTE | 2018-11-26 20:57 | NUR ---
HELPED PT WITH HIS URINAL. BED ALARM SET AGAIN. ASKED PT IF HE NEEDED ANYTHING HE SAID NO.
--- NOTE | 2018-11-26 21:00 | NUR ---
IN ROOM CHARGE PT IS COOPERATIVE AT THIS TIME. IV SITE APPEARS WNL. PT IS MONITORED 1-1.
--- NOTE | 2018-11-26 21:08 | NUR ---
ASSESSMENT COMPLETE. PT AWAKE, RR EVEN AND UNLABORED. PT ACTING COMPLIANT WITH CARE AT THIS TIME. SCHEDULED MEDICATIONS GIVEN WITHOUT CONCERN. IV SITE WNL, FLUIDS INFUSING PER MD ORDERS. SILVER CREME FOR POTASSIUM INFILTRATION APPLIED TO LEFT ARM WITH HELP FROM LUMBER CUTTERANGELA FOFANA. PT TOLERATED DRESSING CHANGE WELL. CALL LIGHT IN REACH, BED ALARM ON.
--- NOTE | 2018-11-26 22:12 | NUR ---
HELPED PT USE HIS URINAL AND GOT HIM TWO WARM BLANKETS. PT NEEDS NOTHING MORE AT THIS TIME.
--- NOTE | 2018-11-26 23:14 | NUR ---
HELPED PT USE THE URINAL. COVERED HIM BACK UP WITH HIS BLANKETS. SET BED ALARM. PT NEEDS NOTHING MORE AT THIS TIME.
--- NOTE | 2018-11-27 00:11 | NUR ---
PT RESTING IN BED, PERIODICALLY MUMBLING TO SELF. IV FLUIDS INFUSING PER MD ORDERS, SITE WNL. CALL LIGHT IN REACH, BED ALARM ON.
--- NOTE | 2018-11-27 00:46 | NUR ---
PT'S IV SITE APPEARS WNL HE IS BEING MONITORED 1-1 AT THIS TIME.
--- NOTE | 2018-11-27 01:30 | NUR ---
PT BECOMING MORE RESTLESS AND SQUIRMING IN BED, THOUGH PT APPEARS TO BE IN GOOD SPIRITS. PT LAUGHING AND SMILING TO STAFF. PT REPOSITIONED SELF WITH VERBAL PROMPTING FROM FRAME RUNNER. PT A/O TO SELF AT THIS TIME.
--- NOTE | 2018-11-27 05:16 | NUR ---
ASSESSMENT COMPLETE. PT INCONTINENT WITH WET ATTENDS. AFTER MULTIPLE ATTEMPTS WITH HELP FROM THIS RN, CRISELDA SCHWARTZ, AND HONEYCOMB BLANKET MAKER, PT CONTINUES TO REFUSE TO ALLOW ATTENDS BE CHANGED. NEW ATTENDS PARTIALLY ON WITH OLD WET ATTENDS PARTIALLY OFF. WILL TRY AGAIN TO REMOVE PT'S WET ATTENDS AFTER PT SETTLES DOWN. CRISELDA SCHWARTZ IN ROOM WITH PT.
--- NOTE | 2018-11-27 05:40 | NUR ---
PT OVERALL HAD A GOOD NIGHT. PT WAS A/O ONLY TO SELF, AT TIMES FOLLOWED COMMANDS. PT HAD INTERMITTENT RESTLESSNESS, RECETLY BEGAN GETTING AGITATED WITH ATTENDS CHANGE. IV FLUIDS PER MD ORDERS, SITE WNL. PT 1:1, WITH BED ALARM. DRESSING TO LEFT ARM R/T RECENT POTASSIUM INFILTRATION. PT ON REGULAR DIET, TOLERATING WELL. TAKES PILLS OKAY. INCONTINENT, VOIDING QS.
--- NOTE | 2018-11-27 05:54 | NUR ---
I &OS DONE AND CHARTED. PT REFUSED TO LET ME CHANGE HIS ATTEND.
--- NOTE | 2018-11-27 05:55 | NUR ---
REFUSED VITAL SIGNS
--- NOTE | 2018-11-27 05:56 | NUR ---
LAB TRIED TO DRAW SOME BLOOD HE REFUSED AND STARTED HITING AT US.
--- NOTE | 2018-11-27 07:45 | NUR ---
RECEIVED REPORT FROM VP ACCOUNT DIRECTOR RN. PT AWAKE IN BED TALKING TO SELF AND BEING FIGITY TRYING TO GET OUT OF BED. PT IS 1:1 AT THIS TIME. NS AT 1100ML/HR INFUSING. LAB CALLED TO ATTEMPT DRAW. BED ALARM IN PLACE, SEIZURE PRECAUTIONS IN PLACE. JUNIOR ENGINEER AT BEDSIDE FOR 1:1.
--- NOTE | 2018-11-27 07:46 | NUR ---
PT'S DIASTYOLIC BP HAS BEEN ABOVE CALL PARAMETERS DURING THIS RN'S SHIFT.PT'S BP HAS BEEN ELEVATED FOR LAST COUPLE DAYS (DIASTYOLIC) PT ALSO REFUSED MORNING LAB DRAWS. DAYSHIFT CROP SETTING OUT MACHINE OPERATOR AND PRIMARY DAYSHIFT RN AWARE. CROP SETTING OUT MACHINE OPERATOR TO DISCUSS MATTERS WITH JOE IN MORNING MEETING. MESSAGE SENT TO JOE SO HE WILL BE AWARE OF MATTER.
--- NOTE | 2018-11-27 08:43 | NUR ---
PT REFUSING TO TAKE MEDICAITONS AT THIS TIME. WILL RETRY IN [address] JOE LUNDBERG.
--- NOTE | 2018-11-27 09:15 | NUR ---
PT SALINE LOCKED FOR CT SCAN. PT ESCORTED TO CT SCAN WITH BEATER OPERATOR, CLOTH MERCERIZING SUPERVISOR AND SUPERVISOR MAINTENANCE.
--- NOTE | 2018-11-27 10:00 | NUR ---
PT BEING MORE COOPERATIVE WITH CARES. AGREED TO TAKE ORAL MEDICATION WITHOUT INCIDENT. CALL LIGHT IN REACH. PT 1: WITH CROSSING GATEMAN AT BEDSIDE.
--- NOTE | 2018-11-27 11:05 | NUR ---
PT 1:1 WITH CRISELDA. HE WAS JUST FINISHING UP HIS MILK-SEEMED INTENT ON GETTING EVERY LAST DROP. PLEASANT, APPROPRIATE RESPONSE AND SEEMED TO ENJOY THE INTER- ACTION WITH ME. COMPLAINED HE HAD NO COOKIES WITH HIS MILK! WILL CONTINUE TO FOLLOW NEEDED
--- NOTE | 2018-11-27 11:30 | NUR ---
UNABLE TO REACH BY PHONE DUE TO BUSY SIGNAL.
--- NOTE | 2018-11-27 11:31 | EKG ---
[facility] [address] [place], [place] [address] Signed Normal sinus rhythm with sinus arrhythmia Normal ECG When compared with ECG of 22-NOV-2018 14:28, No significant change was found Confirmed by MARS DIAZ DO ([id number]) on 11/27/2018 11:31:24 AM Electronically Signed By: MARS DIAZ DO 11/27/18 1131 PATIENT NAME: PREETI KAT MIKA Electrocardiogram DATE OF : 48 PHYSICIAN: MARS DIAZ DO REPORT #: [id number] REPORT IS CONFIDENTIAL AND NOT TO BE RELEASED WITHOUT AUTHORIZATION
--- NOTE | 2018-11-27 11:31 | NUR ---
PATIENT EATING LUNCH AND TALKING.
--- NOTE | 2018-11-27 13:08 | NUR ---
PATIENT IN BED RESTING. THIS BEARING RING ASSEMBLER IS IN THE ROOM.
--- NOTE | 2018-11-27 13:53 | NUR ---
[facility] THEY REQUEST UPDATED CLINICALS. THEY ARE UNABLE TO ACCEPT PATIENT UNTIL HAS POWER OF STEAM OVEN OPERATOR FOR MEDICAL DECISIONS. FAXED UPDATED CLINICALS TO THEM [phone]. FAX CONFIRMATION RECEIVED. FAXED UPDATED CLINICALS TO [facility] [phone]. FAX CONFIRMATION RECEIVED. FAXED UPDATED CLINICALS TO [facility] [phone]. TRIED TO REACH AGAIN, PHONE LINE STILL BUSY. STAFF STATES SHE CALLED THE NURSES STATION AROUND 1215 TO CHECK ON PATIENT BUT HASN'T BEEN IN. CALLED AND SPOKE WITH WILLIE FROM [facility]. THEY HAVE NO HOLD ON PATIENT AND HAVE NOTHING TO OFFER FOR PLACEMENT. DR DIAZ UPDATED.
--- NOTE | 2018-11-27 14:28 | NUR ---
PT APPEARS TO BE SLEEPING. RESPIRAIONS EQUAL AND NONLABORED.
--- NOTE | 2018-11-27 15:49 | NUR ---
1550 PT UP STEADY ON FEET AND WALKING AROUND UNIT WITH [employer] TRAINER AND RN. PT BACK TO BED. CALL LIGHT WITHIN REACH AND EQUESTRIAN TRAINER AT BEDSIDE.
--- NOTE | 2018-11-27 15:53 | NUR ---
PATIENT WAS SLIGHTLY AGGITATED. REALLY WANTED TO LEAVE THE ROOM. SO NURSE YAMILA AND CRISELDA ELIZABETH WALKED A LAP WITH HIM. NOW HE IS IN BED RESTING.
--- NOTE | 2018-11-27 17:30 | NUR ---
PATIENTS CAME TO VISIT. PATIENT GOT AGGITATED AND THREW HIS FOOD ACROSS THE ROOM. DR. DIAZ CAME INTO ROOM TO TALK TO HIS .
--- NOTE | 2018-11-27 18:29 | NUR ---
PATIENT IS RESTING IN BED. STILL IN ROOM. PATIENT HAS CALMED DOWN AND IS WATCHING TV.
--- NOTE | 2018-11-27 18:45 | NUR ---
PT IS 1 ON 1. HAS PERIODS OF AGITAITON, HITTING AT TIMES. WIFES PRESENTS SEEMS TO AGITATE THE PT MORE.PT IS DISORIENTED. NOT REQUIRED ANY MEDIACTIONS FROM ME. U/O QS. PT EATING MOST OF FOODS.
--- NOTE | 2018-11-27 19:30 | NUR ---
CHARGE NURSE ROUNDING NOTE: CONTINUES ON 1:1, AWAKE, VISITING WITH FAMILY
--- NOTE | 2018-11-27 20:12 | NUR ---
ANGELA MARK CAME INTO PTs ROOM AND DID VITAL SIGNS. JAS GAVE ME PUDDING TO GIVE TO THE PT AND HIS , SELVIN ASSISTED.
--- NOTE | 2018-11-27 21:41 | NUR ---
pt has been calm since 1900. he just now fell asleep.
--- NOTE | 2018-11-27 22:00 | NUR ---
PM ASSESSMENT DONE. CRISELDA EVANS AT BED SIDE FOR SAFETY.
--- NOTE | 2018-11-27 23:05 | NUR ---
ANGELA Fitzgerald assisted me with changing PTs attend. He is a little restless but not too bad at the moment.
--- NOTE | 2018-11-28 00:03 | NUR ---
PATIENT RESTING QUIETLY NOW. EYES CLOSED RESPIRATIONS EVEN AND REGULAR AT A RATE OF 16. CRISELDA EVANS REMAINS AT BEDSIDE FOR SAFETY.
--- NOTE | 2018-11-28 00:32 | NUR ---
pt was moved up in bed with assistance from ANGELA Fitzgerald and myself. He is now pulling at the matts that are attached to the bedside controls and is scooting himself down.
--- NOTE | 2018-11-28 01:10 | NUR ---
pt said he had to pee so i grabbed the urinal to help him and he didnt go as i was putting his brief back on he gripped my wrist and wouldnt let go.
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
--- NOTE | 2018-11-28 03:49 | NUR ---
patient went through his breif and drawsheet with the assitance of ANGELA Fitzgerald and myself both the brief and drawsheet were changed. i attempted to get VS but patient wasnt up for it. He is currently awake and a little agitated.
--- NOTE | 2018-11-28 04:09 | NUR ---
PATIENT MORE AGGITATED AT THIS TIME. UNSURE WHY HIS LINEN AND ATTENDS WERE JUST CHANGED. CRISELDA EVANS REMAINS AT BEDSIDE FOR SAFETY.
--- NOTE | 2018-11-28 05:09 | NUR ---
PATIENT IS CURERNTLY SLEEPING, I WILL ATTEMPT VITALS AGAIN ONCE HE WAKES UP.
--- NOTE | 2018-11-28 06:05 | NUR ---
PATIENT HAS SLEPT SOME THROUGH THE NIGHT, AND HAS HAD A COURTNY,EMBEDDED SOFTWARE DESIGN ENGINEER AT BEDSIDE FOR SAFETY ALL NIGHT. IV IS INFUSING AND WNL. PATIENT HAS HAD EPISODES OF CALMNESS AND OTHER EPISODES OF AGGITATION. PATIENT CURRENTLY SLEEPING.
--- NOTE | 2018-11-28 06:22 | NUR ---
patient is awake and in a good mood. he is reminiscing about fishing with a pal named Nikunj.
--- NOTE | 2018-11-28 07:34 | NUR ---
RECEIVED REPORT FROM NEWS VIDEOTAPE EDITOR RN. PT IN BED, WITH A SITTER AT BEDSIDE. ABLE TO ANSWER QUETIONS., DENIES PAIN. APPEARS TO BE IN PLESENT MOOD. NS INFUSING AT 100ML/HR. ATTENDS IN PLACE. 1:1. SEIZURE PRECAUTIONS IN PLACE.
--- NOTE | 2018-11-28 09:30 | NUR ---
PT WITH ELEVATED BLOOD PRESSURE. PT REFUSING TO TAKE MEDICATIONS, DR DIAZ NOTIFIED. WILL TRY AGAIN LATER.
--- NOTE | 2018-11-28 10:00 | NUR ---
PT AWAKE IN BED, ABLETO SAY WHO THE PRESIDENT IS, WHAT HIS NAME WAS AND THE YEAR. DISORIENTED TO PLACE. PT WIKLLING TO TAKE MEDICAITONS AT THIS TIME. SWALLOWED WHOLE WITH NO PROBLEMS.
--- NOTE | 2018-11-28 10:08 | NUR ---
PATIENT IN BED WATCHING TV. RN IN ROOM. CALL LIGHT IN REACH. NO FURTHER NEEDS AT THIS TIME.
--- NOTE | 2018-11-28 10:59 | NUR ---
PATIENT SITTING UP IN BED READING THE NEWS PAPER. PATIENT IS BEING NICE AND COOPEATIVE. CALL LIGHT IN REACH. FREASH WATER GIVEN. NO FURTHER NEEDS AT THIS TIME.
--- NOTE | 2018-11-28 12:26 | NUR ---
LINENS CHANGED. MARIO CARE DONE. NEW DEPENDS. CALL LIGHT IN REACH. NO FURTHER NEEDS AT THIS TIME.
--- NOTE | 2018-11-28 12:35 | NUR ---
ROUNDED WITH DR DIAZ. PLAN OF CARE DISCUSSED. PT UNABLE TO PARTICIPATE MEANINGFULLY TO CONVERSATION. NEW ORDERS RECIEVED.
--- NOTE | 2018-11-28 12:40 | NUR ---
PT SL PER DR ORDER.
--- NOTE | 2018-11-28 14:12 | NUR ---
PATIENT SITTING UP IN BED TALKING TO HIM SELF. FREASH WATER GIVEN. PATIENT BEING COOPERATIVE. CALL LIGHT IN REACH. NO FURTHER NEEDS AT THIS TIME.
--- NOTE | 2018-11-28 16:22 | NUR ---
PT AGGITATED, ASSISTED TO BATHROOM, VOIDED SAMLL AMOUNT IN TOILET, INCONTINENT BRIEF SATURDATED, BRIEF CHANGED. PT THEN WALKED 3 LAPS AROUND NURSING FLOOR WITH MANUFACTURING STOREPERSON AND THIS RN. PT NOW RESTING IN BED, BED ALARM ON, MANUFACTURING STOREPERSON 1:1 AT BEDSIDE.
--- NOTE | 2018-11-28 16:55 | NUR ---
ASKED PATIENT IF HE WOULD LIKE TO TAKE A SHOWER PATIENT GOT CONFUSED AND AGITATED.
--- NOTE | 2018-11-28 18:08 | NUR ---
BETTINA AT [facility] CALLED FOR UPDATED CLINICALS. PROGRESS NOTES, NURSES NOTES, LABS AND VITALS FAXED. CONFIRMATION RECEIVED.
--- NOTE | 2018-11-28 18:13 | NUR ---
THE CHARGE NURSE AND I WALKED PATIENT TO THE BATHROOM HAD HARD TIME FOLLOWING CUES. NOW PATIENT BACK IN BED WITH CLEAN PULL UP ON AND BED ALARM ON.
--- NOTE | 2018-11-28 18:27 | NUR ---
PT CONFUSED AND RESTLESS, PT NOT FOLLOWING COMMANDS. PT THINKS HE IS IN THE CAR. LIMITING STIMULATION. 1:1 AT BEDSIDE, LIGHTS TURNED DOWN.
--- NOTE | 2018-11-28 18:30 | NUR ---
PT CONTINUES TO HAVE CONFUSION WITH BRIEF MOMENTS OR INCREASED AWARENESS, CONTINUES TO HAVE 1:1. PT ON ROOM AIR, OCCASIONAL MOIST COUGH. PT INCONTINENT OF URINE, QS, INCREASED AGGITATION WHEN HE NEEDS TO USE RESTROOM. PT WALKED IN ANGEL 3 LAPS THIS EVENING, 2PA WITH GAIT BELT. PT WITH POOR ORAL INTAKE, REFUSES TO EAT AT TIMES. IV SALINE LOCKED. ZYPREXA STOPPED TODAY.
--- NOTE | 2018-11-28 19:37 | NUR ---
resting, eyes closed, calm. ABSTRACT CHECKER in room, in room. pt on room air, sl intact
--- NOTE | 2018-11-28 20:58 | NUR ---
UP TO BRP WITH 2 PA AND GAIT BELT, WEAK GAIT BUT TOLERATED VERY WELL. VOIDED. WASHED OWN FACE. BACK TO BED. COOPERATIVE WITH ASSESSMENT. EYES RED CONJUCTIVA AND AROUND EYE PERIMETER, NO DRAINAGE NOTED. CLEAR NASAL DRAINAGE NOTED, LUNGS DIMINISHED AT BASES. MOIST NON PRODUCTIVE COUGH PRESENT. AWARE OF NAME, AND "SOMEKIND OF PLACE TO TREAT SICK PEOPLE" STATED, UNAWARE OF MONTH/DATE. DRANK WHOLE CONTAINER OF WATER AND A STRAWBERRY ENSURE AND TOOK MEDS CRUSHED AND MIXED W PUDING. TOLERATED VERY WELL, NO N/V. ALLEVYN DRESSING BY R ELBOW INTACT. IV SITE R ARM COVERED, PATENT. dRESSING L UPPER ARM CHANGED. COOP. RAILS UP AND SEIZURE PRECAUTIONS PADS IN BED. HIGH FALL PRECAUTIONS IN PLACE. FAIRING WORKER IN ROOM TO REORIENT PT AND FOLLOW FALL PRECAUTIONS/SAFETY.
--- NOTE | 2018-11-28 21:11 | NUR ---
PATIENT WOKE UP. OFFERED WATER AND PATIENT.
--- NOTE | 2018-11-28 21:13 | NUR ---
PATIENT WAS CRYING, TALKED TO PATIENT THAT EVERYTHING IS FINE.
--- NOTE | 2018-11-28 21:14 | NUR ---
RN MANNY AND I HELPED PATIENT TO USE THE TOILET USING GAIT BELT. HAD SOAKED PULL UPS. CHANGED NEW ONE. PATIENT DID VOID. PATIENT DID DRINK ENSURE. PATIENT IS BACK IN BED. BED ALARM ON.
--- NOTE | 2018-11-28 21:17 | NUR ---
PATIENT STILL AWAKE TALKING.
--- NOTE | 2018-11-28 23:20 | NUR ---
DROWSY, WORD SALAD, CALM, ANSWERS TO SELF, TURNS IN BED, BED ALRM AND SEIZURE PADS IN PLACE, COP BREAKER IN ROOM, PT EASILY REDIRECTABLE AT THIS TIME.
--- NOTE | 2018-11-29 01:33 | NUR ---
RESTING, EYES CLOSED, NO RESP DITRESS, CALM QUIET, TURNS SELF IN BED, BED ALARM AND SEIZURE PADS IN PLACE.
--- NOTE | 2018-11-29 04:34 | NUR ---
PT CONTINUES ON CLOSE OBSERVATION WITH A STAFF IN ROOM DUE TO IMPULSIVENESS AND TO PREVENT FALLS. THIS SHIFT HE HAS SLEP MOST OF THIS SHIFT. UP TO BR WITH 2 PERSON ASSIST AND GAIT BELT, TOLERATED VERY WELL. FLUIDS ENCOURAGED AND HAS BEEN DRINKING QS THIS SHIFT, ENSURE GIVEN, TOLERATED WELL. TOOK MEDS CRUSHED AND MIXED WITH PUDDING W/O PROBLEMS. HOB ELEVATED TO PREVENT ASPIRATION.ON ROOM AIR, CONTINUES TO HAVE DIM LUNG SOUNDS T/O. UNABLE TO COMPREHEND OR FOLLO INTRUCTIONS FOR CDB. EASILY REDIRECTABLE THIS SHIFT. WAS HYPERVERBAL W CLEAR SPEECH MIXED WITH WORD SALAD AT BEGINNING OF SHIFT. ARTUR RISK FALL AND SEIZURE PRECAUTIONS IN PLACE
--- NOTE | 2018-11-29 05:58 | NUR ---
INCONTINENT OF URINE, UP TO BR W 2 PEOPLE ASSIST AND GAIT BELT, IMPROVED GAIT. VOIDED, MARIO CARE DONE, CLEAN ATTENDS AND GOWN GIVEN. DRANK 1/2 ENSURE CONTAINER AND WATER. SPEECH MUCH IMPROVED, CLEAR, COANTINUES TO BE HYPERVERBAL WITH NORMAL TONE OF VOICE. IMPROVE COGNITIION FROM LAST NIGHT TOO. EASILY REDIRECTABLE. COOP WITH VITALS AND LABS DRAWN. BED ALARM AND SEIZURE PADS INPLACE. EQUALIZING SAW OPERATOR IN ROOM ALL THIS SHIFT.
--- NOTE | 2018-11-29 06:53 | NUR ---
ANGELA BRYANT AND I HELPED PATIENT TO THE TOILET AND BACK TO BED USING GAIT BELT.
--- NOTE | 2018-11-29 06:54 | NUR ---
PATIENT IS AWAKE, V/S AND I&O DONE AND CHARTED.
--- NOTE | 2018-11-29 08:07 | NUR ---
PT RSTING IN BED ALERT. ORIENTED TO SELF. VERBAL APPROPRIATE.
--- NOTE | 2018-11-29 08:27 | NUR ---
PT UP AMBULATING IN ROOM SBA OF BIOLOGICAL AIDE. COOPERATIVE WITH CARE THIS AM.
--- NOTE | 2018-11-29 09:55 | NUR ---
PT UP AMBULATING IN HALLS WITH BREAKER OPERATOR.
--- NOTE | 2018-11-29 10:15 | NUR ---
PATIENT UP FOR A WALK IN HALLWAY. PATIENT NOW SITTING IN CHAIR WATCHING TV. FRESH WATER GIVEN. CALL LIGHT IN REACH. NO FURTHER NEEDS AT THIS TIME.
--- NOTE | 2018-11-29 11:24 | NUR ---
PATIENT SITTING IN CHAIR WATCHING TV WITH HIS FEET ELEVATED AND 2 WARM BLANKETS. I ASKED HIM IF HE WOULD LIKE TO TAKE A SHOWER AND HE SAID YES.
--- NOTE | 2018-11-29 12:56 | NUR ---
PT SITTING UP IN RECLINER, EYES CLOSED. RN IN TO GIVEN NORVASC, PT REFUSED TO OPEN HIS EYES BUT DID VERBAL RESPOND, AT FIRST HE SAID NO THEN HE AGREED AFTER RE-ORIENTATION PROVIDED AND TOOK MEDICATION WITH NO ISSUES.
--- NOTE | 2018-11-29 14:25 | NUR ---
PATIENT SITTING IN CHAIR. PATIENT WOKE UP CRYING AND TALKING ABOUT WAR. FRESH WATER GIVEN. CALL LIGHT IN REACH. NO FURTHER NEEDS AT THIS TIME.
--- NOTE | 2018-11-29 14:45 | NUR ---
PT SITTIING UP IN RECLINER WATCHING TV AND TALKING WITH STREETCAR CONDUCTOR IN ROOM.
--- NOTE | 2018-11-29 15:30 | NUR ---
DRESSING CHANGED ON LUE PER MD ORDERS AND MEDICATED CREAM APPLIED RE-DRESSED. PT COOPERATIVE FOR PROCEDURE. SITE APPEARS TO BE HEALING, NO ODOR, SMALL AMOUNT OF SEROSANGUINOUS DRAINAGE ON OLD DRESSING REMOVED. APPEARS TO BE SURFACE NGUYEN IN NATURE.
--- NOTE | 2018-11-29 16:13 | NUR ---
PATIENT UP FOR WALK IN HALLWAY. PATIENT NOW BACK TO CHAIR. CALL LIGHT IN REACH. NO FURTHER NEEDS AT THIS TIME.
--- NOTE | 2018-11-29 16:59 | NUR ---
PT HAS BEEN COOPERATIVE THIS SHIFT, STILL FORGETFUL, HAS BEEN EASILY RE-DIRECTED AND RE-ORIENTED. HAS ATTEMPTED TO LEAVE UNIT ONCE AND WAS RE-DIRECTED. HE HAS HAD GOOD NUTRITIONAL INTAKE AND ORAL INTAKE-HE REQUIRES QUES TO EAT AND ASSISTANCE TO SET UP. HE IS A STANDBY ASSIST. HAS K+ RIDER INFUSING. NO ISSUES TAKING MEDICATIONS. PT IS ON ROOM AIR AND S/L.
--- NOTE | 2018-11-29 17:52 | NUR ---
PT UP AMBULATING IN HALLS STEADY GAIT. STANDBY ASSIST WITH MANAGER INTRANET
--- NOTE | 2018-11-29 18:23 | NUR ---
PATIENT UP IN HALLS AMBULATING. PATIENT KEPT TRYING TO FIND THE EXIT. PATIENT NOW IN ROOM SITTING IN CHAIR. PATIENT KEEPS SAYING "THE DR HAS NO RIGHT TO KEEP ME HERE AND HE IS GOING HOME". URBAN DESIGNER IN ROOM WITH PATIENT. CALL LIGHT IN REACH. NO FURTHER NEEDS AT THIS TIME.
--- NOTE | 2018-11-29 19:09 | NUR ---
RECIEVED CHANGE OF SHIFT REPORT FROM JOE MILLER. PATIENT RESTING IN CHAIR WITH EYES CLOSED, RESPIRATORY RATE IS EVEN AND UNLABORED. FIELD CARE ADVOCATE SITTING IN CHAIR AT BEDSIDE. WHITE BOARD UPDATED.
--- NOTE | 2018-11-29 20:05 | NUR ---
ASSESSMENT COMPLETE. THIS RN IS ONE ON ONE WITH PATIENT. PATIENT IS COOPERATIVE DURING ASSESSMENT. PATIENT DISORIENTED TO PLACE AND DAY OF WEEK, REIORIENTATION PROVIDED. PATIENT STATES OCCASIONAL CONFUSED STATEMENTS THAT ARE NOT LOGICAL WITH CONTEXT OF CONVERSATION. DRESSING ON RIGHT FORARM IN PLACE, NO NEW DRAINAGED. LEFT UPPER ARM DRESSING IN PLACE, ELINOR WRAP IS CDI, NO NEW DRAINAGE NOTED. PATIENT RESTING IN CHAIR WITH EYES CLOSED, RESPIRATORY RATE IS EVEN AND UNLABORED. PATIENT DENIES HAVING PAIN, SOB, DIFFICULTY BREATHING OR CHEST PAIN. NO SIGNS OF RESPIRATORY DISTRESS. PATIENT EXHIBITS OCCASIONAL CONGESTED COUGH, NO SPUTUM PRODUCTION NOTED. NO MORE NEEDS AT THIS TIME.
--- NOTE | 2018-11-29 20:30 | NUR ---
RECEIVED CALL FROM RUDY FROM [facility]. INQUIRED IN PT WAS STILL INHOUSE, HE IS "ON THE LIST OF POTENTIAL PATIENTS". SHE STATES THAT THE LIST IS "UPDATED" NIGHTLY. CONFIRMED WITH HER.
--- NOTE | 2018-11-29 21:15 | NUR ---
THIS RN AND GENERAL I FARMWORKER ATTEMPTED TO ASSIST PATIENT TO RESTROOM. WHILE ASSISTING PATIENT IN STANDING UP FROM CHAIR, PATIENT CONTINUED TO POSITION SELF IN BENT OVER/ POSITION, THIS RN SAFELY GUIDED PATIENT TO HIS KNEES AND PLACED HAND UNDERNEATH FOREHEAD TO PROTECT PATIENT'S HEAD FROM TOUCHING GROUND. ALEXA RN USED UNDERARM AXEL TO REPOSITION PATIENT BACK INTO CHAIR. ONCE IN CHAIR, AXEL SLING WAS USED TO TRANSFER PATIENT TO BED. WHILST IN BED, NEW ATTNDS PLACED ON PATIENT. HEEL PROTECTORS PLACED ON PATIENT. PATIENT TOOK SIPS OF WATER WHEN OFFERED. PATIENT VISIBLY UPSET AND CRYING, PATIENT STATES "I DON'T FEEL GOOD", PATIENT UNABLE TO STATES WHAT IS BOTHERING HIM AT THIS TIME, THERAPEUTIC COMMUNICATION PROVIDED. SEIZURE PADS IN PLACE ON BED. THIS RN IS ONE ON ONE WITH PATIENT. IV ASSESSED TO BE PATENT, WNL. DURING TRANSFER, PATIENT EXHIBITED CONFUSED STATEMENTS AND RESISTED TO MOST DIRECTIONS FROM NURSING STAFF. NO MORE NEEDS AT THIS TIME.
--- NOTE | 2018-11-29 22:00 | NUR ---
THIS RN ATTEMPTED TO ADMINISTER PATIENT'S SCHEDULED MEDICATIONS PER DEC ORDER MULTIPLE TIMES BETWEEN 2119 AND NOW, PATIENT REFUSED ALL ATTEMPTS AT THIS TIME. PATIENT VISIBLY UPSET WITH TEARS PRESENT, THERAPEUTIC COMMUNICATION PROVIDE TO PATIENT. ENCOURAGED PATIENT TO TAKE SIPS OF WATER, DRINK SIPS OF ENSURE AND TAKE BITES OF PUDDING, PATIENT REFUSED ALL ATTEMPTS. PATIENT REPOSITIONED IN BED WITH ASSISTANCE FROM FAUSTINA ABURTO. PATIENT RESTING IN BED WITH EYES CLOSED, RESPIRATORY RATE IS EVEN AND UNLABORED. BED ALARM ON FOR SAFETY. SEIZURE PADS IN PLACE. THIS RN IS ONE ON ONE WITH PATIENT. NO MORE NEEDS AT THIS TIME.
--- NOTE | 2018-11-29 23:54 | NUR ---
PATIENT RESTING IN BED WITH WITH EYES CLOSED, RESPIRATORY RATE IS EVEN AND UNLABORED, RR: 20. THIS RN IS ONE ON ONE WITH PATIENT.
--- NOTE | 2018-11-30 00:25 | NUR ---
THIS RN IS ONE ON ONE WITH PATIENT. DRESSING ON UPPER LEFT ARM CHANGED, SCHEDULED MEDICATED CREAM APPLIED TO AFFECTED AREA, NON ADHERENT PAD AND ELINOR WRAP PLACED AROUND WOUND, PATIENT TOLERATED WELL. SMALL AMOUNT OF SEROUS DRAINAGE NOTED ON PREVIOUS DRESSING THAT WAS REMOVED. REDNESS NOTED AT OPEN WOUND SITES. FOCUSED WOUND ASSESSMENT COMPLETE. ATTEMPTED TO ADMINISTER SCHEDULED PO MEDICATIONS PER ORDER AGAIN, PILLS PLACED IN PUDDING, REPOSITIONED PATIENT IN BED AND ELEVATED HOB, PATIENT STILL REFUSED. DR. DIAZ AWARE OF PATIENT REFUSING PO MEDICATIONS. REPOSITIONED PATIENT IN BED. PATIENT LAYING IN BED WITH EYES CLOSED, RESPIRATORY RATE IS EVEN AN UNLABORED. PATIENT EXHIBITS OCCASIONAL GARBLED LANGUAGE AND HAS DIFFICULTY FOLLOWING INSTRUCTIONS. PATIENT NO LONGER CRYING AND NO SIGNS OF DISTRESS. NO MORE NEEDS AT THIS TIME.
--- NOTE | 2018-11-30 01:02 | NUR ---
PATIENT FOUND TO HAVE INCONTINENT EPISODE. THIS RN, CHARGE NURSE DMITRIY, AND FAUSTINA ABURTO ASSISTED IN CHANGING PATIENT ATTENDS. NEW ABSORBANT PAD PLACED ON BED AND NEW GOWN PLACED ON PATIENT. REPOSITIONED PATIENT IN BED. HEEL PROTECTORS IN PLACE. BED ALARM ON FOR SAFETY. SEIZURE PADS IN PLACE. THIS RN OFFERED PATIENT SIPS OF WATER, PATIENT REFUSED. PATIENT EXHIBITED GARBLED LANGUAGE WHILE CHANGING ATTENDS AND REQUIRED FREQUENT REPETIION OF INSTRUCTIONS. THIS RN IS ONE ON ONE WITH PATIENT. NO MORE NEEDS AT THIS TIME.
--- NOTE | 2018-11-30 02:32 | NUR ---
ASSESSMENT COMPLETE. PATIENT RESTING IN BED WITH EYES CLOSED, RESPIRATORY RATE IS EVEN AND UNLABORED. PATIENT APPEARS TO BE SLEEPING THROUGHOUT ASSESSMENT. PATIENT SHOWS NO SIGNS OF DISTRESS. HEEL PROTECTORS IN PLACE. SEIZURE PADS STILL IN PLACE. BED ALARM ON FOR SAFETY. THIS RN IS ONE ON ONE WITH PATIENT. NO MORE NEEDS AT THIS TIME.
--- NOTE | 2018-11-30 03:38 | NUR ---
THIS RN IS ONE ON ONE WITH PATIENT. REPOSITIONED PATIENT IN BED WITH ASSISTANCE FROM CRISELDA WEEMS. REASSESSED PATIENT TEMPERATURE TO BE 98.9F VIA ORAL THERMOMETER. RESPIRATORY RATE IS EVEN AND UNLABORED, NO SIGNS OF RESPIRATORY DISTRESS. NO MORE NEEDS AT THIS TIME.
--- NOTE | 2018-11-30 04:35 | NUR ---
PATIENT RESTING IN BED WITH EYES CLOSED, RESPIRATORY RATE IS EVEN AND UNLABORED. NO SIGNS OF DISTRESS. NO SIGNS OF TENSING OR GRIMACING. BED ALARM ON FOR SAFETY. SEIZURE PADS STILL IN PLACE. HEEL PROTECTORS STILL IN PLACE. THIS RN IS ONE ON ONE WITH PATIENT. NO MORE NEEDS AT THIS TIME.
--- NOTE | 2018-11-30 05:10 | NUR ---
THIS RN IS ONE ON ONE WITH PATIENT. REPOSITIONED PATIENT IN BED. PLACED NEW ATTENDS ON PATIENT. VITALS ASSESSED AND RECORDED. INTAKE AND OUTPUT ASSESSED AND RECORDED. HEEL PROTECTORS IN PLACE. OFFERED PATIENT SIPS OF WATER, PATIENT DENIED WANTING SIPS OF WATER. NO MORE NEEDS AT THIS TIME.
--- NOTE | 2018-11-30 05:20 | NUR ---
NOTIFED DR. DIAZ OF PATIENT ELEVATED TEMPERATURE AND GENERAL STATUS. DR. DIAZ REQUESTED THAT NEW ORDERS BE PLACED, VERIFIED NEW ORDERS THROUGH READBACK METHOD.
--- NOTE | 2018-11-30 05:45 | NUR ---
ROUNDED ON PATIENT TO ADMINSTER PRN TYLENOL PER ORDER AND AFTER THE "OK" FROM DR. DIAZ FOR PATIENT'S ELEVATED TEMPERATURE. URINE COLLECTION BAG PLACED FOR NEEDED URINE SAMPLE PER ORDER. LABORATORY PERSONNEL IN ROOM. THERAPEUTIC COMMUNICATION AND SUPPORT PROVIDED TO PATIENT. NO MORE NEEDS AT THIS TIME.
--- NOTE | 2018-11-30 06:10 | NUR ---
THIS RN AND CHARGE NURSE DMITRIY REPOSITIONED PATIENT IN BED. OFFERED PATIENT SIPS OF WATER, PATIENT DENIED SIPS OF WATER. THIS RN IS ONE ON ONE WITH PATIENT. NO MORE NEEDS AT THIS TIME.
--- NOTE | 2018-11-30 06:25 | NUR ---
PATIENT SLEPT THROUGHOUT SHIFT. PATIENT REFUSED PO MEDICATIONS AFTER MULTIPLE ATTEMPTS. PATIENT REFUSED TO AMBULATE TO RESTROOM AND WAS HOYERED TO BED AFTER SITTING IN CHAIR EARLIER IN SHIFT. PATIENT LETHARGIC AND HAD DECREASED PO FLUID INTAKE DUE TO DECREASED INTEREST IN DRINKING FLUIDS. PATIENT EXHIBITED ELEVATED TEMPERATURE. DR. DIAZ AWARE OF PATIENT'S STATUS. NEW ORDERS PLACED. CXR THIS SHIFT. PRN MEDICATION FOR TEMPERTURE X1. REPOSITIONED PATIENT FREQUENTLY THROUGHOUT SHIFT. SALINE LOCKED. ROOM AIR. REGULAR DIET. INCONTINENT, ATTENDS IN PLACE. HEEL PROTECTORS. SEIZURE PRECAUTIONS IN PLACE.
--- NOTE | 2018-11-30 06:44 | NUR ---
REPOSTIONED PATIENT IN BED AND CHANGED PATIENT'S ATTENDS WITH ASSISTANCE FROM FAUSTINA ABURTO. NO MORE NEEDS AT THIS TIME.
--- NOTE | 2018-11-30 07:20 | NUR ---
SBA PATIENT TO RESTROOM TO USE TOILET WITH ASSISTANCE FROM CRISELDA LOPEZ. URINE SAMPLE COLLECTED AND SENT TO LAB. CRISELDA IN ROOM WITH PATIENT TO PROVIDE SHOWER. NO MORE NEEDS AT THIS TIME.
--- NOTE | 2018-11-30 07:47 | NUR ---
PATIENT UP TO BATHROOM THEN TO SHOWER CHAIR. MARIO CARE, SKIN CARE, SHAMPOO DONE BY THIS [employer] REP. LINENS CHANGED. NEW GOWN AND NEW DEPENDS. PATIENT NOW IN CHAIR EATING BREAKFAST. CALL LIGHT IN REACH. NO FURTHER NEEDS AT THIS TIME.
--- NOTE | 2018-11-30 08:46 | NUR ---
SHIFT REPORT FROM NIGHT RN. PATIENT TOOK ALL MORNING MEDICATIONS. UP AMBULATING IN ROOM, SHOWERED. ATE BREAKFAST WELL. FULL BODY ASSESMENT DONE. WILL NOT VERBALIZE IF HAVING PAIN. 1:1 SITTER IN ROOM
--- NOTE | 2018-11-30 09:00 | NUR ---
SPOKE WITH OCCUPATIONAL THERAPIST TO REQUEST A MOCA SCREEN BE DONE WITH HIM THIS MORNING HE IS MORE ALERT AND AWARE. SHE STATES SHE WILL ATTEMPT TO DO THIS.
--- NOTE | 2018-11-30 09:43 | NUR ---
DRESSING TO LEFT UPPER ARM CHANGED, OINTMENT APPLIED TO OPEN AREAS, PLACED NON ADHERENT DRESSINGS OVER OPEN AREAS, THEN WRAPPED LOOSELY WITH ELINOR WRAP. OPEN AREAS CLEANSED WITH NS AND STERILE GAUZE, PATTED DRY WITH STERILE GAUZE.
--- NOTE | 2018-11-30 12:29 | NUR ---
SPOKE WITH PATIENTS BY PHONE. SHE STATES SHE IS NOT COMING IN TODAY, SHE IS NOT FEELING WELL WITH A FEVER. ENCOURAGED HER TO CALL PCP. WE DISCUSSED PATIENTS CONTINUED IMPROVEMENT. WE DISCUSSED WHERE WE ARE ON FINDING A FACILITY FOR HIM. SHE STATES SHE WANTS TO TAKE HIM HOME HOPEFULLY. SHE STATES IF HE CAN GET UP AND AROUND AND IS NOT COMBATIVE WITH THINGS, SHE WOULD LIKE TO TAKE HIM HOME. WE DICUSSED IF SHE DID THIS SHE WOULD NEED TO GET HIM BACK TO HIS PCP AND PSYCHIATRIST AT THE [place]. SHE STATES SHE WILL CERTANINLY BE ABLE TO DO THIS. WE AGREED TO SEE HOW HE IS DOING TOMORROW AND HAVE ANOTHER CONVERSATION.
--- NOTE | 2018-11-30 13:00 | NUR ---
PATIENT SITTING UP IN HIS CHAIR HE IS STILL A ONE ON ONE PATIENT DUE TO CONFUSION, PATIENT AT THIS TIME WAS ONLY ORINETED TO SELF. DRESSING TO LEFT UPPER ARM CDI WITH ELINOR WRAP. IV X2 INTACT IN THE RIGHT ARM NO REDDNESS OR DRAINAGE NOTED.
--- NOTE | 2018-11-30 13:31 | NUR ---
PATIENT IN CHAIR WATCHING TV. FRESH WATER GIVEN. CALL LIGHT IN REACH. NO FURTHER NEEDS AT THIS TIME.
--- NOTE | 2018-11-30 14:04 | NUR ---
patient up ambulating with his one on one at this time. patient is steady on his feet and requires only a stand by assist.
--- NOTE | 2018-11-30 16:33 | NUR ---
PATIENT UNWILLING TO ROLL OFF HIS STOMACH AT THIS TIME AND TAKE HIS POTASSIUM PO. PATIENT MOVED UP IN BED WITH TWO PERSON ASSIST. WILL ATTEMPT TO GIVE HIS MEDICATION AGAIN WITH DINNER.
--- NOTE | 2018-11-30 17:43 | NUR ---
PATIENT UP TO BATHROOM AND BACK TO BED, SBA. PATIENT IS STARTING TO GET IRRITATED AND DOES NOT WANT TO HAVE BLOOD PRESSURE TAKEN. FRESH WATER GIVEN. CALL LIGHT IN REACH. NO FURTHER NEEDS AT THIS TIME.
--- NOTE | 2018-11-30 18:25 | NUR ---
THIS PATIENT CONTINUES TO BE A ONE ON ONE DUE TO CONFUSION. HE HAS REFUSED TO TAKE HIS POTASSIUM MEDICATION AND DID NOT EAT HIS DINNER. HE IS NOT ORIENTED AT THIS TIME AND NEEDS TO HAVE RAILS UP WITH AN ALARM ON HIS BED.
--- NOTE | 2018-11-30 19:20 | NUR ---
BEDSIDE REPORT RECEIVED FROM OFFGOING RN. PT RESTING IN BED WITH EYES CLOSED, PT DOES NOT WAKE DURING REPORT. PT CONTINUES TO BE 1:1, ROOM IN VIEW OF RN STATION.
--- NOTE | 2018-11-30 19:30 | NUR ---
CHARGE NURSE REPORT RECIEVED FROM DANIEL, PT IN BED WITH EYES CLOSED, AND DYE EXPERT PRESENT
--- NOTE | 2018-11-30 20:25 | NUR ---
PT FOUND WITH BED ALARM SOUNDING, ATTEMPTING TO GET OUT OF BED. PT DISORIENTED TO ALL, LAUGHS AND ANSWERS MINIMALLY TO QUESTIONS. PT ASSESSMENT COMPLETE. PT RUBBING R BACK AND HIP, SAYS YES WHEN ASKED IF HE IS HAVING PAIN, UNABLE TO RATE. PRN TYLENOL TO BE ADMINISTERED. LUNG SOUNDS DIMINISHED IN BILATERAL BASES, NO S/SX OF DISTRESS NOTED. NO COUGH PRESENT DURING THIS ASSESSMENT. DRESSING CHANGED PERFORMED TO LUE, PT TOLERATED WELL. PT PROVIDED WITH ENSURE, ASSISTED TO DRINK. BED ALARM ACTIVE, ROOM IN VIEW OF RN STATION, STAFF 1:1 TO PT.
--- NOTE | 2018-11-30 22:46 | NUR ---
PT HAS BEEN INCONT URINE X 2 SO FAR THIS SHIFT, THE FIRST TIME HE ACTUALLY WAS ABLE TO URINATE ON THE FLOOR, NEAR FOOT OF BED HIS ALARM WAS SOUNDING AND STAFF REDIRECTING. CONFUSED AND PLEASANT BUT FOLLOWING SIMPLE COMMANDS RESULTS IN A "YES" WITH NO ACTION. WAS INCON BM, LIQUID IN ATTENDS, WHEN ASKED IF HE NEEDS TO USE THE BATHROOM HE SAYS NO. THIS OCCASSION PT WAS ABLE TO ROLL OVER ONTO THE SEIZURE PADS INTO AN UNSAFE POSITION, REDIRECTABLE. HAS DRANK STRAWBERRY ENSURE OFF ON ON WHILE THIS NURSE IN ROOM. RESTLESS BUT UNABLE TO STATE WHY HE IS RESTLESS OR WHAT HE NEEDS.
--- NOTE | 2018-11-30 23:09 | NUR ---
with assist of another rn, pt to bsc as he said yes when asked if the needs to use the bathroom. stood with no difficulty, while on commode, many cues given to "pee or poop" however pt did neither. back to sit o the edge of the bed with 1:1
--- NOTE | 2018-11-30 23:30 | NUR ---
RECEIVED CALL FROM [facility], WHO CALLED 11/29/18 CHECKING ON THE STATUS, IF PT STILL HERE. STATES SHE WAS GOING TO CONTACT "JENAE AND LEAVE A MESSAGE REGARDING INFORMATION THAT THEY ARE STILL NEEDING FOR PT TO BE CONSIDERED".
--- NOTE | 2018-12-01 00:45 | NUR ---
PT CLIMBED OUT OF BED ALARM SOUNDING, SL UNSTEADY, HEADED TO THE BATHROOM. HAS LOOSE STOOL, AND URNATED, ATTENDS DRY. BACK TO BED WITHOUT DIFFICULTY.
--- NOTE | 2018-12-01 02:00 | NUR ---
PT RESTING IN BED WITH EYES CLOSED, APPEARS TO BE SLEEPING. BED ALARM ACTIVE. PT REMAINS 1:1. ROOM IN VIEW OF RN STATION.
--- NOTE | 2018-12-01 03:20 | NUR ---
PT RESTING IN BED WITH EYES CLOSED. PT ASSESSMENT COMPLETE. PT RESTLESS, SHIFTING HANDS DURING ASSESSMENT BUT DOES NOT FULL WAKE. PT HAVING OCCASSIONAL DRY SOUNDING COUGH. RHONCHI NOTED TO BILATERAL LOWER LOBES. ATTENDS IN PLACE FOR INCONTINENCE. PT REMAINS 1:1, ROOM IN VIEW OF RN STATION.
--- NOTE | 2018-12-01 04:52 | NUR ---
PT ON HIS RIGHT SIDE CURRENTLY, HOWEVER, NEAR 0444 PT WAS MOVING AROUND, WAVED TO THIS NURSE, ASKED IF HE NEEDED TO USE THE BATHROOM, HE SAID YES, BUT WOULDN'T GET UP, AND WAS NOT INCONT, BUT INSTEAD TURNED TO HIS RIGHT SIDE AND CLOSED HIS EYES. S/R BACK UP, PT COVERED WITH BLANKET.
--- NOTE | 2018-12-01 07:42 | NUR ---
0703: Report received in the valentino as the pt is sleeping at this time. Pt remains a 1 to 1 due to his confusion and impulsiveness. Bed alarm remains in place.
--- NOTE | 2018-12-01 08:21 | NUR ---
PATIENT UP TO BATHROOM THEN TO SHOWER CHAIR. MARIO CARE, SHAMPOO, SKIN CARE DONE. NEW DEPENDS AND GOWN. PATIENT NOW IN CHAIR EATING BREAKFAST. OT IN ROOM. FRESH WATER GIVEN. CALL LIGHT IN REACH. NO FURTHER NEEDS AT THIS TIME.
--- NOTE | 2018-12-01 10:20 | NUR ---
PT IS RESTING IN THE CHAIR AND IS SLEEPING OFF AND ON. PT HAS NO NEEDS AT THIS TIME. WILL CONTINUE TO MONITOR. CALL LIGHT IS IN REACH.
--- NOTE | 2018-12-01 11:56 | NUR ---
PT JUST RETURNED TO HIS ROOM FOLLOWING A WALK AROUND THE DEPARTMENT WITH A STANDBY ASSIST. WAS STEADY ON HIS FEET WITH ASSIST. PT REMAINS CONFUSED AND DISORIENTED TO ALL EXCEPT SELF. CURRENTLY SITTING UP IN CHAIR WITH HIS LUNCH IN FRONT OF HIM WHICH HE IS NOT INTRESTED. SUPPLEMENT SHAKE ORDERED FOR THE PT AT THIS TIME.
--- NOTE | 2018-12-01 12:54 | NUR ---
PATIENT WAS UP AND WALKED THE HALLWAY TWICE. PT IS SITTING UP IN THE CHAIR AND HAS NO REQUESTS AT THIS TIME. WILL CONTINUE TO MONITOR.
--- NOTE | 2018-12-01 13:45 | NUR ---
VS AND I&O'S HAVE BEEN TAKEN AND DOCUMENTED. GAVE PT A BOOK TO READ AND REMOVED HIS LUNCH TRAY. PT STATED THAT HE WOULD LIKE HIS FEET UP. PT'S TEMP CAME DOWN, WILL INFORM RN. WILL CONTINUE TO MONITOR.
--- NOTE | 2018-12-01 14:24 | NUR ---
PT SITTING IN CHAIR, WATCHING TV AND THE SNOW FALLING OUT THE WINDOW. HE SEEMED CONTENT, PLEASANT CONVERSATION. WILL CONTINUE TO FOLLOW
--- NOTE | 2018-12-01 14:42 | NUR ---
PT SITTING UP IN RECLINER, LOOKING AT FRONT PAGES OF BOOK. ABLE TO TELL THIS RN WHO THE AUTHOR IS, BUT PT UNABLE TO ARTICULATE WHAT THE BOOK IS ABOUT. OFFERED PT DRINKS OTHER THAN WATER, SUCH JUICE, AND PT STATED "NO, NOT RIGHT NOW, BUT IF I DO, I WILL JUST HOLLER". PT CALM, ALERT, RECEPTIVE TO STAFF. DENIED PAIN.
--- NOTE | 2018-12-01 15:48 | NUR ---
PT ATTEMPTED TO GET UP WITHOUT HELP WITH RN IN THE ROOM. REINFORCED TEACHING FOR THE NEED FOR A STANDBY ASSIST. PT ASSESSED TO THE BR AND VOIDED AT THIS TIME, PT HAD ALSO BEEN INCONT IN HIS DEPENDS. PT CLEANED UP AND NEW DEPENDS PLACED. PT APPEARS COMFORTABLE AND IN NO PHYSICAL DISTRESS. PT ORIENTED TO YEAR NOT DAY OR MONTH, NOT ORIENTED TO PLACE OR TIME.
--- NOTE | 2018-12-01 16:57 | NUR ---
VS AND I&O'S TAKEN AND DOCUMENTED. THIS MANAGER OUTREACH SHAVED THE PATIENTS FACE AND APPLIED LOTION. PT STATES HE HAS NO OTHER NEEDS AT THIS TIME. WILL INFORM RN OF RAISED TEMP. WILL CONTINUE TO MONITOR. CALL LIGHT IS IN REACH AND BED ALARM IS SET.
--- NOTE | 2018-12-01 18:41 | NUR ---
PT IN BED SLEEPING AT THIS TIME, BED ALARM IS ON.
--- NOTE | 2018-12-01 19:30 | NUR ---
CHARGE NURSE REPORT RECEIVED. PT CURRENTLY WITH BM ON HIMSELF, THE BED, THE FLOOR AND 2 ELECTROCARDIOGRAPH REPAIRER'S ARE ATTEMPTING TO COAX HIM INTO THE BATHROOM TO GET CLEANED UP. PT INCREASED IN EDGYNESS, LESS DIRECTABLE COMPARED TO THE SHIFT PRIOR TO THIS TIME.
--- NOTE | 2018-12-01 20:13 | NUR ---
PT ON EDGE OF BED WITH 1:1 SUPERVISION, ATTEMPTED TO GIVE HIM HIS HS MEDS, HE TRIED TO THROW THEM, TRIED TO HAVE HIM HAVE A DRINK OF STRAWBERRY ENSURE, THE GRAB CONTAINER, TRIED TO DUMP ON THIS NURSE, AND SPILL IT. HE IS CHALLENGING, GRAB THIS NURSE HAND, UNLIKE PREVIOUS NIGHT WHERE HE WAS COOPERATIVE AND REDIRECTABLE. WANTS TO PLAY POOL, DOESNT KNOW WHY WE "DIDN'T INVITE HIM OVER". PT PRIMARY NURSE WILL NOTIFY DR FITZGERALD OF THE BEHAVIOR.
--- NOTE | 2018-12-01 20:30 | NUR ---
THIS NURSE 1:1 WITH PT. PT CONTINUED TO BE NONREDIRECTABLE. WOULD STAND UP AND BECOME UNSTEADY, WOULD REPEAT THE SUGGESTIONS AVAILABLE TO PT, HE WOULD SAY WHY WASNT HE ABLE TO PLAY POOL, UNAWARE THAT HE IS IN THE HOSPITAL. ON ONE OCCASSIONAL PT PUSHED THIS NURSE WHEN TRYING TO REDIRECT HIM INTO A SAFER POSTION, FIRMLY TOLD PT THAT PUSHING WASN'T OK, HE SMILED, AND LAUGHED. DR FITZGERALD AWARE.
--- NOTE | 2018-12-01 21:50 | NUR ---
VERBAL ORDERS FOR 5MG IM HALDOL AND 2MG IM ATIVAN RECEIVED FROM . CODE AIMEE CALLED. STAFF RESPONDED TO ASSIST WITH PLACING SOFT RESTRAINTS. PATIENT RESTRAINED IN 4-POINT SOFT RESTRAINTS. IV 1MG ATIVAN PROVIDED.
--- NOTE | 2018-12-01 22:00 | NUR ---
ASSESSMENT DONE. pt COMBATIVE, CODE YU CALLED. SEE NOTE BY ANGELA IZAGUIRRE FOR DETAILS. 1:1, SOFT RESTRAINTS.
--- NOTE | 2018-12-01 22:11 | NUR ---
TOOK OVER 1:1 WITH PATIENT AT 2044. PATIENT WAS SITTING ON THE END OF HIS BED WATCHING TV. I WAS SITTING IN A CHAIR NEXT TO THE PATIENT TALKING WITH HIM. PATIENT VISITED WITH ME WITHOUT ANY ISSUES FOR 1/2 AN HOUR. AT 2114 PATIENT DECIDED HE WANTED TO GO OUT SIDE. I INFORMED HIM THAT IT WAS TO COLD TO GO OUT SIDE BUT WE COULD WALK ON THE UNIT. HE STARTED TO GET AGGITATED THAT I WOULD NOT LET HIM GO OUTSIDE. I TOLD HIM HE COULD NOT LEAVE HIS ROOM WITHOUT HIS GAIT BELT ON. HE REFUSED TO PUT IT ON SO I WOULD NOT LET HIM LEAVE THE ROOM. HE WAS GETTING MORE AGGITATED, ANGRY, AND VERBALLY ABUSIVE TOWARDS ME BECAUSE I REFUSED TO LET HIM LEAVE THE ROOM. HE FORCED HIS WAY OUT OF THE ROOM AND REFUSED TO GO BACK IN. PATIENT STARTED WALKING DOWN THE ANGEL WITHOUT HIS GAIT BELT ON I STAYED BY HIS SIDE FOR HIS SAFETY. MJHerberth WAS CALLED AT ABOUT 2149. SECURITY, DR FITZGERALD, RT, ES STAFF, OTHER STAFF DOWN TO HELP US GET THE PATIENT BACK IN THE ROOM, PATIENT REFUSED. ALISHA MONROE WAS CALLED AT THIS TIME. PATIENT WAS CONVINCED TO RETURN TO HIS ROOM BY ALISHA MONROE STAFF. PATIENT REFUSED TO LAY IN BED, ALISHA MONROE STAFF HAD TO SUBDUE PAITENT IN HIS BED. SEVERAL STAFF WERE HIT, AND FINGERNAILS WERE DUG INTO THEM, ATTEMPTED TO KICK STAFF WELL, THE NURSE ADMINISTED MEDICATION TO HELP PAITENT REST AND SOFT RESTRAINTS WERE APPLIED. THIS NET MOBILE DEVELOPER CONTINUES WITH 1:1 OBSERVATION. PT WITH EYES CLOSED, RESPIRATIONS 20, OCCASSIONAL VOCALIZATION WITH NO WORDS HEARD. NO FURTHER COMBATIVE BEHAVIOR AT THIS TIME, RN IN TO OBSERVE WELL.
--- NOTE | 2018-12-01 22:30 | NUR ---
@ 2150 CODE AIMEE CALLED DUE TO PT AND STAFF IN AN UNSAFE POSITION, STANDING AT THE NURSES STATION, DEMANDING A PHONE, YET REFUSING TO GO TO HIS ROOM TO USE THE PHONE. DR FITZGERALD, RT, RADIO DIVISION CAPTAIN ATTEMPTING TO REDIRECT PT. PT PARANOID BEHAVIOR, THINKING THIS IS A TRICK. DR FITZGERALD CONVICED PT THAT HE WOULD PERSONALLY GIVE THE PHONE TO HIM, SO PT FOLLOWED, ONCE IN THE ROOM PT STARTED TO FALL BACKWARDS, RT REACHED TO SUPPORT HIM, AND PT BECAME COMBATIVE, TRIED TO STRIKE RT, THREATENED OTHERS, ATTEMPTED TO HEAD BUTT A STAFF MEMEBER, KICKED DR FITZGERALD IN THE THIGH. ONCE IM MEDICATION GIVEN, PT WAS PLACED IN BED, RESTRAINED AND SOFT RESTRAINTS PLACED X 4. PT WITH 1:1 WITH RADIO DIVISION CAPTAIN AT THIS TIME.
--- NOTE | 2018-12-02 | NUR ---
pt 1:1 WITH HOME SCHOOL LIAISON OFFICER. SOFT RESTRAINTS FOR SAFETY OF STAFF.
--- NOTE | 2018-12-02 02:00 | NUR ---
pt 1:1 WITH CAREER PROFESSIONAL. SOFT RESTRAINTS FOR SAFETY OF STAFF.
--- NOTE | 2018-12-02 04:00 | NUR ---
pt 1:1 WITH MICROBIOLOGY LAB MANAGER. SOFT RESTRAINTS FOR SAFETY OF STAFF.
--- NOTE | 2018-12-02 05:30 | NUR ---
ASSESSMENT DONE. DIFFICULT TO AUSCULATE pt MOANING. 1:1 WITH MECHANICAL CAR CHECKER. SOFT RESTRAINTS FOR STAFF SAFETY. UNABLE TO ASSESS MENTATION AT THIS TIME.
--- NOTE | 2018-12-02 06:25 | NUR ---
pt COMBATIVE. ALISHA YU CALLED, pt 1:1 THROUGHOUT NIGHT. SL. REGULAR DIET.
--- NOTE | 2018-12-02 06:26 | NUR ---
PT SOFT RESTRAINTS HAVE BEEN RELEASED THROUGHOUT THE NIGHT, HAS REMAINED 1:1, ORDER WAS RECEIVED AT 2150 12/01/[address] FITZGERALD WHILE ON THE FLOOR. PT GOT AGITATED AFTER BLOOD DRAW THIS AM. WATCHED STAFF AND TEST PILOT THEN CLOSED EYES.
--- NOTE | 2018-12-02 07:20 | NUR ---
BEDSIDE HANDOFF REPORT RECEIVED FROM COMPOUNDING PHARMACY TECHNICIAN RN. PT RESTING QUIETLY IN BED. [address]
--- NOTE | 2018-12-02 07:42 | NUR ---
PATIENT RESTING IN BED, EYES CLOSED. PATIENT HAS RESTRAINTS ON UPPER AND LOWER EXTREMITIES, AND IS VISIBLE FROM THE NURSES STATION. PATIENT BUTTON IN REACH, BED RAILS UP, BED ALARM ON. NO OTHER NEEDS AT THIS TIME.
--- NOTE | 2018-12-02 07:43 | NUR ---
PT IS RESTRAINED AND SLEEPING/SNORING.
--- NOTE | 2018-12-02 07:56 | NUR ---
PT IS STILL SLEEPING.
--- NOTE | 2018-12-02 08:16 | NUR ---
PT IS SLEEPING.
--- NOTE | 2018-12-02 08:30 | NUR ---
PT RESTING IN BED. PT ORIENTED TO SELF ONLY, FOLLOWING COMMANDS. PT ON ROOM AIRN, LUNG SOUNDS WITH EXPIRATORY WHEEZE AND DIM BASES, OCCASIONAL COUGH. PT DECLINING BREAKFAST AT THIS TIME. PT WITH SOFT RESTRAINTS X4, PULSES INTACT, CMS INTACT. PT BOWEL TONES ACTIVE, DENIES NAUSEA. PT DENIES PAIN. PT WITH IV TO RIGHT FOREARM, SL. DRESSING TO LEFT UPPER ARM.
--- NOTE | 2018-12-02 09:06 | NUR ---
PT COOPERATIVE WITH CARE, RESTRAINTS REMOVED AT 0835, PT ASSISTED TO BATHROOM, NOW SITTING IN CHAIR. PT COOPERATIVE TO TAKE MORNING MEDICATIONS. PT WITH 1:1 SITTER, CHAIR ALARM IN PLACE. PT EATING BREAKFAST.
--- NOTE | 2018-12-02 09:16 | NUR ---
PT IS CURRENTLY SITTING UP IN THE CHAIR FINISHING HIS BREAKFAST. PT STATES THAT HE HAS NO NEEDS AT THIS TIME. WILL CONTINUE TO MONITOR. CALL LIGHT IS IN REACH.
--- NOTE | 2018-12-02 09:21 | NUR ---
FAXED UPDATED CLINICALS TO [facility]. UPDATED CLINICALS DATING FROM 11/28/18 TO 12/01/18, CALLED AND SPOKE WITH CHEPE AT [facility] AT [place] AND SHE STATED WE SHOULD CHECK WITH OUR LEGAL DEPARTMENT ABOUT GETTING A TRANSPORT CUSTODY, AT THE SAME TIME I WAS TALKING WITH HER RADHA WAS TALKING WITH [facility] CRISIS WORKERS. TIFFANY DENNISON CALLED US BACK AND SAID THEY WOULD BE SENDING SOMEONE UP TO PLACE A TRANSPORT CUSTODY HOLD OF SOME SORT THAT THEY CAN DO. RADHA ALSO LEFT A MESSAGE WITH RAFIQ AT [facility] BEDS AT THE [facility]. CALLED BACK TO [facility] AND ASKED IF INDEED THERE IS A BED AVAILABLE FOR HIM. ATILIO STATED THAT ONCE THEY GET LEGAL INFORMATION ABOUT BEING ABLE TO REVIEW AND PROB BE ABLE TO TAKE THIS PT TODAY OR TOMORROW. THE SELVIN CALLED THIS AM INFORMED HER OF THE PT BEHAVIORS AND THAT HE WAS IN RESTRAINTS THROUGHOUT THE EVENING AND INTO THE AM TODAY. SHE ASKED IF WE COULD HAVE THE DR WRITE A LETTER STATING THAT THE PT IS NOT CAPABLE OF CARING FOR HIMSELF AND IS MENTALLY INCAPCITED. I TOLD HER I WOULD TALK TO THE DR, BUT COULD NOT GUARANTEE THAT THE DR WILL BE ABLE TO WRITE THIS DOCUMENT FOR HER.
--- NOTE | 2018-12-02 09:30 | NUR ---
PT GIVEN WARM BLANKET PER PT REQUEST. WILL CONTINUE TO MONITOR.
--- NOTE | 2018-12-02 09:39 | NUR ---
IV ROCEPHIN INFUSION COMPLETED, SALINE LOCKED. PT SITTING IN CHAIR, CHAIR ALARM IN PLACE. PT DENIES NEEDS AT THIS TIME.
--- NOTE | 2018-12-02 09:58 | NUR ---
VS AND I&O'S TAKEN AND DOCUMENTED. PT IS RESTING IN THE RECLINER AT THIS TIME. WILL CONTINUE TO MONITOR. ICE WATER AND CALL LIGHT ARE IN REACH.
--- NOTE | 2018-12-02 10:35 | NUR ---
MARY FROM [employer] WAS HERE AND FILLED OUT A NOTIFICATION OF TRANSFER OF AN ALLEGEDLY MENTALLY ILL PERSON IN CUSTODY. DR FITZGERALD SIGNED IT. PENDING UPON WHEN TRANSFERRED PAPERWORK WILL BE UPDATED.
--- NOTE | 2018-12-02 10:42 | NUR ---
MD UPDATED ON DC OF USE OF RESTRAINTS THIS AM, PT COOPERATIVE WITH TAKING MORNING MEDICATIONS. NO NEW ORDERS AT THIS TIME.
--- NOTE | 2018-12-02 10:51 | NUR ---
PATIENT SITTING UP IN BEDSIDE RECLINER RESTING WITH EYES CLOSED. CALL LIGHT IN REACH, CHAIR ALARM ON. NO OTHER NEEDS AT THIS TIME.
--- NOTE | 2018-12-02 11:37 | NUR ---
FAXED THE NOTIFICATION OF TRANSFER OF AN ALLEGEDLY MENTALLY ILL PERSON IN CUSTODY TO [facility] AT [phone], RECIEVED FAX CONFIRMATION. TALKED TO CHEPE AT [facility] AND SHE SAID SOON THIS IS RECIEVED THEY WILL REVIEW AND HOPEFULLY ASSIGN A BED.
--- NOTE | 2018-12-02 11:46 | NUR ---
PT SOMNOLENT THIS AM; NSG REPORTED THAT HE WAS PUT INTO RESTRAINTS EARLIER. ASKED PT IF HE WAS AGREEABLE TO TX AT THIS TIME: "I JUST WANT TO SLEEP." WILL ATTEMPT TX ANOTHER TIME. MS MELISSA [facility] AT [place] MODEL MAKER
--- NOTE | 2018-12-02 11:52 | NUR ---
PT RESTING IN CHAIR QUIETLY. CHAIR ALARM IN PLACE.
--- NOTE | 2018-12-02 12:41 | NUR ---
PT RESTING QUIETLY IN BED, DIFFICULT TO AROUSE BY VOICE. PT REFUSING TO GET UP TO THE BATHROOM, BRIEFS CHECKED AND WITHOUT INCONTINENCE. CHAIR ALARM IN PLACE, PT ALLOWED TO REST.
--- NOTE | 2018-12-02 14:31 | NUR ---
PATIENT AMBULATED TO BATHROOM AND BACK TO BEDSIDE RECLINER WITH TWO PERSON ASSIST. PATIENT RESISTS POSITIONING FOR BLOOD PRESSURE. RN IN ROOM. CALL LIGHT IN REACH, CHAIR ALARM ON, PATIENT VISIBLE FROM NURSES STATION. NO OTHER NEEDS AT THIS TIME.
--- NOTE | 2018-12-02 14:35 | NUR ---
PT AWOKEN AND ASSITED TO BATHROOM, PT VOIDED. PT ASSISTED BACK TO CHAIR, CHAIR ALARM ON. PT DROWSY, ORIENTED TO SELF ONLY. IV FLUIDS INFUSING D5LR AT 75 ML/HR TO RIGHT AC. LUNG SOUNDS CLEAR WITH DIMINISHED BASES, ON ROOM AIR. CMS INTACT, WITHOUT EDEMA. PT ASSISTED WITH ORDERING A SANDWICH FOR LUNCH, ENCOURAGED PO FLUIDS. PT DENIES OTHER NEEDS AT THIS TIME.
--- NOTE | 2018-12-02 16:00 | NUR ---
PT IV TO RIGHT AC LEAKING, ASSESSED, INFILTRATED. IV DISCONTINUED. RN ANDREW TO START NEW IV SITE. AT BEDSIDE, REQUESTING TO SPEAK WITH JENAE DIRECTOR OF ONLINE EDUCATION.
--- NOTE | 2018-12-02 17:20 | NUR ---
STATES PT COMPLAINING OF PAIN TO BACK. PT PROVIDED TYLENOL. PT DENIES OTHER NEEDS. REPOSITIONED IN CHAIR, CHAIR ALARM ON.
--- NOTE | 2018-12-02 17:26 | NUR ---
PATIENT SITTING UP IN BEDSIDE RECLINER, FAMILY IN ROOM. PATIENT DRESSED IN CLEAN GOWN. CHAIR ALARM ON, CALL LIGHT IN REACH, NO OTHER NEEDS AT THIS TIME.
--- NOTE | 2018-12-02 18:57 | NUR ---
RESTRAINTS REOVED THIS AM, HAS BEEN COOPERATIVE TRHOUGHOUT SHIFT. CONTINUES TO BE ORIENTED TO SELF ONLY, VERY DRWOSY IN AFTERNOON. PT ON ROOM AIR, LUNG SOUNDS CLEAR AND DIMINISHED. PT WITH POOR ORAL INTAKE, IV FLUIDS STARTED D5LR AT 75, NEW IV STARTED TO LEFT FOREARM. 2PA TO AMBULATE TO BATHROOM.
--- NOTE | 2018-12-02 19:10 | NUR ---
RECEIVED REPORT FROM ANGELA MCKINLEY. pt RESTING IN BED, RESPIRATIONS REGULAR. VISITOR AT BEDSIDE. WHITEBOARD UPDATED. NO REQUESTS AT THIS TIME.
--- NOTE | 2018-12-02 22:03 | NUR ---
CHECKED ON PT, LAYING ON RIGHT SIDE, EYES CLOSED, RESP AT 16. IV INFUSING PER ORDER.
--- NOTE | 2018-12-02 23:30 | NUR ---
ATTEMPTED MULTIPLE TIMES TO GIVE MEDICATION TO pt. VERBAL "OKAY" STATED BUT pt's HAND PUSHED MEDICATIONS AND FLUID AWAY. CHARGE NURSE ATTEMPTED. DR FITZGERALD CALLED, STATED "OKAY TO DEBBIE NOT GIVEN". pt RESTING IN BED WITH EYES CLOSED, RESPIRATIONS REGULAR. BED ALARM ON. CURTAIN AND DOOR OPEN TO THE NURSES STATION.
--- NOTE | 2018-12-03 00:09 | NUR ---
pt GETTING RESTLESS. ATTEMPTING TO GET OUT OF BED. SL IV. ASSISTED TO TOILET. pt RAMBLING SPEECH, NOT ANSWERING QUESTIONS APPROPRIATELY. DMITRIY RN IN ROOM WITH pt AT THIS TIME.
--- NOTE | 2018-12-03 00:16 | NUR ---
CALL LIGHT ON. pt RECEPTIVE TO TAKING SEIZURE MEDICATION. GIVEN (SEE MAR). pt SITTING IN CHAIR CONVERSING WITH ANGELA IZAGUIRRE AT CHAIR SIDE.
--- NOTE | 2018-12-03 00:54 | NUR ---
pt UP IN CHAIR, CONVERSING WITH ANGELA IZAGUIRRE.
--- NOTE | 2018-12-03 01:23 | NUR ---
PT BACK IN BED, EYES CLOSED, IV INFUSING PER ORDER, HOB ELEVATED. HAVE SPENT THE PAST HOUR AND HALF SITTING WITH PT AFTER HE USED THE BATHROOM. NO BEHAVIORS, CONVERSATION ALL ABOUT THE [facility], CASINGS INFORMATION HE SHOULD GET TO THE [facility], USED THE PHONE, ASKED HIM IF HE KNEW THE NUMBER HE REPLIED IT IS A STANDARD NUMBER, BUT UNABLE TO COMPLETE A CALL. AT ONE POINT HE GOT UP AND PICKEDUP THE FALL MAT AND WAS EXAMINING IT AND FELT HE COULD CUT IT WITH A KNIFE FOR [facility] FOR THE CASINGS. DRANK 300 CC GRAPE JUICE, NO BEHAVIORS. UNAWARE HE WAS IN THE HOSPITAL, UNAWARE WHO THIS NURSE IS. PLEASANT AND COOPERATIVE
--- NOTE | 2018-12-03 02:37 | NUR ---
CONTINUE 1:1, HAS TALKED OFF AND ON OVER THE PAST HOUR, WILL CLOSE EYES AND THEN FEW MIN LATER, OPEN EYES SAY SOMETHING THEN CLOSE EYES AGAIN. CURRENTLY PT ROLLED OVER TO HIS RIGHT SIDE, THIS NURSE SHUT HIS TV OFF, TO HOPE TO ENABLE RESTFUL SLEEPING.
--- NOTE | 2018-12-03 03:33 | NUR ---
PT BED ALARM SOUNDING, STATED HE WAS GOING TO GO TO THE STORE AND BUY TUMS. SUGGESTED HE USE THE BATHROOM INSTEAD AND HE AGREED. VOIDED, HAD A SMALL BM. HE HAS SAID HIS STOMACH WAS UPSET EARLIER IN SHIFT, SO CHARGE NURSE ORDERED MAALOX. HAS BEEN APPROPRIATE, HOWEVER, HE HAS NO IDEA HE IS IN THE HOSPITAL, OR THAT THIS RODENT EXTERMINATOR IS A NURSE. HE DID SAY, ONCE IN BED, IT WILL SURE BE NICE WHEN "I CAN RETIRE", REFERRING TO HIMSELF. BED ALARM IN PLACE, HOB ELEVATED, BLANKETS OVER HIM, CALM WITH EYES CLOSED.
--- NOTE | 2018-12-03 05:03 | NUR ---
pt RESTING WITH EYES CLOSED. CRISELDA WEEMS IN ROOM.
--- NOTE | 2018-12-03 05:25 | NUR ---
pt RESTED ON AND OFF DURING SHIFT. REFUSED TO TAKE MEDICATIONS AT START OF SHIFT, MORE COMPLIANT SHIFT PROGRESSED. D5LR INFUSING. BED ALARM ON. 1:1 MOST OF SHIFT.
--- NOTE | 2018-12-03 07:43 | NUR ---
REPORT RECEIVED FROM BEHAVIORAL PEDIATRICIAN RN. PT IN BED WITH EYES CLOSED. RESPIRATIONS ARE EQUAL AND NONLABORED. BED ALARM IN PLACE, SEIZURE PRECAUTIONS IN PLACE. VISIBLE FROM NURSING STATION.
--- NOTE | 2018-12-03 10:05 | NUR ---
PT INCOT OF LARGE BM IN BED. PT ATTEMPTED TO EXIT BED WITH OUT ASSISTANCE TO BATHROOM. BED ALARM ALERTED NURSE TO ASSIST. PT IN PLESENT MOOD. DISORIENTED TO PLACE ONLY. ORIENTED TO SELF AND DATE. PT SHOWERED WITH ASSISTANCE. LINENS CHANGED. PT UP TO CHAIR FOR BREAKFAST. TOOK MEDICAITONS WITHOUT INCIDENT. ABX STARTED. IV WNL. CHAIR ALARM IN PLACE. CALL LIGHT IN REACH.
--- NOTE | 2018-12-03 13:15 | NUR ---
SPEACH THERAPY IN [facility] WITHPT
--- NOTE | 2018-12-03 16:35 | NUR ---
RADHA Hsu TALKED WITH [facility] AND THEY STATE THEY HAVE NO BEDS AT THIS TIME, AND ADMITTING INTAKE PEOPLE HAVE LEFT FOR THE DAY AND TO CALL BACK IN AM.
--- NOTE | 2018-12-03 18:52 | NUR ---
[T HAD GOODDAY. PLESENT AND COOPERATIVE WITH CARES. TOOK MEDICATIONS WHOLE WITHOUT INCEDENT. STILL DISORIENTED TO TIME AND PLACE. SBA TO BATHROOM. BED ALARM IN PLACE. MAALOX FOR ACID REFLUX. SL. VVS
--- NOTE | 2018-12-03 19:05 | NUR ---
SHIFT REPORT RECEIVED FROM DAYSHIFT ANGELA SOL. PT RESTING, EYES CLOSED, RR EVEN AND UNLABORED. PT TALKING TO SELF, APPEARS COMFORTABLE. CALL LIGHT IN REACH, BED ALARM ON.
--- NOTE | 2018-12-03 20:20 | NUR ---
PT UP IN HIS CHAIR CURRENLTY HIS PRIMARY NURSE IN THE ROOM. NEAR 194 PT WAS PULLING THE SEIZURE PADS OFF THE BED, TALKING ABOUT A CAMERA AND FILM. ENCOURAGED HIM TO GET UP TO THE BATHROOM, HE VOIDED, CLEANED SELF UP, NEEDED CUEING TO WASH HIS HANDS, DID COMB HIS HAIR, THEN PICKED UP A NEWSPAPER AND SAID HE NEEDED TO GO TO THE STORE AND BUY SOME SHOES. REDIRECTED TO THE CHAIR, WITH CRACKERS AND FRESH ICE WATER. HAVE BEEN 1:1 WITH PT TIL THIS TIME, PT WILL GET UP OFF CHAIR AND WALK AROUND ROOM, HAS NO IDEA WHERE HE IS, OR WHO THIS HEARINGS REPORTER IS. WHEN ASKED THE RESPONSE IS OFF THE SUBJECT COMPLETELY.
--- NOTE | 2018-12-03 20:35 | NUR ---
ASSESSMENT COMPLETE. PT A/O ONLY TO SELF, DENIES PAIN AT THIS TIME. PT COOPORATIVE AT THIS TIME. VSS. I&O'S RECORDED. SCHEDULED MEDICATIONS GIVEN WITHOUT CONCERN OR ISSUES (SEE EMAR). IV SITE FLUSHED, SITE WNL. PT WANTING TO WALK, GASTROENTEROLOGIST DMITRIY IN HALLWAY WITH PT.
--- NOTE | 2018-12-03 20:45 | NUR ---
PT RETURNED FROM WALK, TOLERATED WELL, APPEARED TIRED PER BLENDING COORDINATORANGELA IZAGUIRRE. PT RESTING IN BED, WATCHING BASKETBALL GAME ON THE TELEVISION. PT DENIES ADDITIONAL NEEDS, CALL LIGHT IN REACH. BED ALARM ON.
--- NOTE | 2018-12-03 21:30 | NUR ---
PT TRYNIG TO GET OUT OF BED, ALARM SOUNDING,. STATES NEEDS TO GO TO THE CAN. ASSISTED TO BATHROOM.
--- NOTE | 2018-12-03 22:22 | NUR ---
PT BACK IN BED. APPROX 15 MIN AGO PT CLIMBED OUT OF BED, ALARMS SOUNDING. WANTED TO GO TO THE BATHROOM. SAT ON THE TOIET FOR 10 MIN, HAD A MED SOFT, STOOL, AND VOIDED. ON WAY BACK TO BED, HE WANTED TO GO AND GET THE CAMERA TO TAKE PICTURES, SEC OF RESISTANCE, THEN HE SAT ON THE BED, AND AGREED IT WAS LATE AND HE WAS TIRED. COVERED, ALARMS IN PLACE.
--- NOTE | 2018-12-03 23:24 | NUR ---
THIS RN DISCUSSED WITH THREAD WEAVER DMITRIY REGARDING PT'S ORDERS FOR IV FLUIDS. THIS RN RECEIVED IN REPORT THAT PT WAS SALINE LOCKED. NURSE NOTIFY ORDER NOTED FOR PT TO BE SALINE LOCKED ON 11/29/18, BUT ORDER FOR MAINTENANCE FLUIDS REMAINS ACTIVE AND ON EMAR OF 12/02/18. DISCUSSED FINDINGS WITH THREAD WEAVER. INSTRUCTED BY SUELLEN MILLER TO NOT CALL DR FITZGERALD AND ALLOW DR FITZGERALD TO REST. WAIT TO CALL IN THE MORNING. PT'S UO AND INTAKE HAS REMAINED QS. WILL MONITOR.
--- NOTE | 2018-12-04 00:50 | NUR ---
PT RESTING IN BED, RR EVEN AND UNLABORED. PT DENIES PAIN OR NEEDS AT THIS TIME. CALL LIGHT IN REACH. SIEZURE PRECAUTIONS IN PLACE, BED ALARM ON.
--- NOTE | 2018-12-04 05:37 | NUR ---
PT OVERALL HAD A GOOD NIGHT. PT A/O TO SELF. PT WAS NOT COMBATIVE AND FOLLOWED COMMANDS APPROPERAITEY. PT FREQUENTLY MUMBLES TO SELF. VSS. PT SALINE LOCKED, VOIDING QS WELL TOLERATING PO INTAKE. ATTENDS IN PLACE, PT INCONTINENT OF STOOL AT TIMES. LAST BM 12/03/18. BED ALARM ON FOR SAFETY.
--- NOTE | 2018-12-04 06:47 | NUR ---
SPOKE TO DR FITZGERALD REGARDING CLARIFICATION IN IV FLUIDS VERSES SALINE LOCK. VERBAL ORDER READ BACK TO CONTINUE IV D5LR AT 75 MLS/HR. NEW BAG HUNG, SITE WNL. ASSESSMENT COMPLETE. NO NEW CONCERNS. VS COLLECTED BY DENTAL TECHNICIAN METAL, STABLE. RR EVEN AND UNLABORED. PT VOIDING QS THIS SHIFT. CALL LIGHT IN REACH, BED ALARM ON.
--- NOTE | 2018-12-04 08:03 | NUR ---
REPORT RECEIVED FROM PREMIUM REPRESENTATIVE RN. PT AWAKE IN BED. SBA TO CHAIR FOR BREAKFAST. PT IS PLESENT THIS MORKARENNG AND COOPERATINVE WITH CARES. D5LR AT 75 INFUSING. IV SITE WNL.
--- NOTE | 2018-12-04 10:00 | NUR ---
PT UP IN CHAIR WIT H ALARM IN PLACE. PLESENT BUT DISORIENTED TO TIME AND PLACE. DENEIS AND STOMACH PAIN OR REFLUX. DENIES PAIN. LUNGS DIM. FLUIDS AT 75ML/HR. PT VISIBLE FROM NURSING STATION. ROX GROSSMAN D/T BLOOD PRESSURE PERAMETERS.
--- NOTE | 2018-12-04 12:33 | NUR ---
PT SITTING IN CHAIR, LOOKS VERY LOST AND BEWILDERED TODAY. I SAID G[place]ALO, AND HE TOLD ME THAT MAURICE IS MISSING AND CAN'T FIND HER-REFERRING TO CRISELDA RICHARDS. TALKED FOR A MOMENT-DID NOT MAKE EYE CONTACT WITH ME. WILL CONTINUE TO FOLLOW
--- NOTE | 2018-12-04 12:35 | NUR ---
PT UP TO CHAIR FOR LUNCH.
--- NOTE | 2018-12-04 13:00 | NUR ---
PATIENT WAS SITTING IN HIS CHAIR WHEN HIS CHAIR ALARM WENT OFF. GOT HIM SET BACK DOWN AND PUT HIS FEET UP. AND DID HIS VITALS.
--- NOTE | 2018-12-04 13:55 | NUR ---
SBA TO BATHROOM TO VOID.
--- NOTE | 2018-12-04 14:00 | NUR ---
SBA FOR 2 LAPS ON MED/SURG.
--- NOTE | 2018-12-04 14:30 | NUR ---
CHAZ FITZGERALD. NEW ORDERS RECEIVED.
--- NOTE | 2018-12-04 14:38 | NUR ---
PATIENT AND NURSE WALKED 2 LAPS AROUND MED SURG.
--- NOTE | 2018-12-04 18:40 | NUR ---
PT HAD GOOD DAY. STILL DISORIENTED AND UNABLE TO PARTICIPATE IN MEANINGFUL CONVERSATION. PT SL AT THIS TIME. U/O QS, EATING MAJORITY OF MEALS AND TAKING PO FLUID WELL. ABLE TO FOLLOW COMMANDS. BED ALARM, SEIZURE PRECAUTIONS.
--- NOTE | 2018-12-04 20:32 | NUR ---
ASSESSMENT AND MEDICATIONS DUE. pt RECEPTIVE TO TAKING MEDICATIONS. CONFUSED. STATED "I AM YOUR GRANDPA". INSISTED ON HUGGING AND KISSING THIS RN. LEFT, pt TEARFUL AT TIMES. INSISTANT ON GOING HOME TO TAKE CARE OF HIS DOG. THERAPEUTIC COMMUNICATION USED. pt WALKED OUT OF ROOM, EFREN ABURTO WITH pt AT THIS TIME. DIFFICULTY REDIRECTING. pt HUGGING STAFF. CURRENTLY AMBULATING IN ANGEL WITH CRISELDA SCHWARTZ
--- NOTE | 2018-12-04 20:37 | NUR ---
PT IS UP WALKING IN THE HALLS AT THIS TIME WITH EFREN ABURTO.
--- NOTE | 2018-12-04 21:38 | NUR ---
VITALS AND I&OS DONE AND CHARTED. HELPED PT TO THE BATHROOM. WALKED SEVERAL TIMES AROUND [facility]. SAT AND TALKED WITH HIM IN HIS ROOM. TOOK OUT HIS DENTURES AND THEY ARE SOAKING IN A DISH IN THE BATHROOM. BED ALARM SET. BEDSIDE TABLE AND CALL LIGHT IN REACH. FRESH WATER GIVEN.
--- NOTE | 2018-12-05 00:55 | NUR ---
PATIENT UP TO BATHROOM, 1 PSERSON ASSIST. PATIENT WOULD NOT GET OFF TOILET. THIS APPLIER AND APPLIER JANUARY TRIED TO GET PATIENT TO STAND UP. PATIENT ENDED UP STAYING ON TOILET FOR 30 MINS. THEN FINALLY GOT UP AND WENT BACK TO BED. WARM BLANKET PROVIDED. CALL LIGHT IN REACH. BED ALARM ON. NO FURTHER NEEDS AT THIS TIME.
--- NOTE | 2018-12-05 00:55 | NUR ---
WITH THE HELP OF CRISELDA LOPEZ WE GOT PT BACK TO BED FROM THE BATHROOM. TWO WARM BLANKETS GIVEN. BED ALARM SET. BEDSIDE TABLE AND CALL LIGHT IN REACH. PT NEEDS NOTHING MORE AT THIS TIME.
--- NOTE | 2018-12-05 02:21 | NUR ---
pt SITTING ON SIDE OF BED, PICKING AT GOWN. CURTAIN OPEN TO NURSES STATION. BED ALARM ON.
--- NOTE | 2018-12-05 02:44 | NUR ---
SAT WITH PT IN HIS ROOM. HE WASN'T TIRED AND WANTED TO SIT UP.
--- NOTE | 2018-12-05 03:49 | NUR ---
ROUNDED ON pt. RESTING WITH EYES CLOSED, RESPIRATIONS REGULAR, RATE = 16. CHAIR ALARM ON.
--- NOTE | 2018-12-05 05:11 | NUR ---
pt RESTED ON AND OFF DURING SHIFT. pt EMOTIONAL AND TEARFUL AT TIMES. ATTEMPTED TO HUG AND KISS STAFF. CONFUSED STATING "I'M YOUR GRANDPA". ORIENTED TO SELF. SBA. AMBULATED IN HALLS MULTIPLE TIMES. IV SL. TOLERATING REGULAR DIET. 1:1 AT TIMES DURING SHIFT. BED ALARM OR CHAIR ALARM ON.
--- NOTE | 2018-12-05 05:12 | NUR ---
PT UP IN RECLINER CHAIR, WITH EYES CLOSED, RESP EVEN AND UNLABORED.
--- NOTE | 2018-12-05 06:26 | NUR ---
VITALS AND I&OS DONE AND CHARTED. HELPED PT TO THE BATHROOM AND BACK TO BED. FRESH ICE WATER GIVEN. BEDSIDE TABLE AND CALL LIGHT IN REACH. BED ALARM SET.
--- NOTE | 2018-12-05 06:26 | NUR ---
pt UP TO TOILET, X RAY SERVICE ENGINEER IN ROOM. ASSESSMENT DONE. pt COOPERATIVE. CONFUSED, ORIENTED TO SELF. IN BED WITH BED ALARM ON. DOOR OPEN TO NURSES STATION.
--- NOTE | 2018-12-05 07:30 | NUR ---
Pt awake, sitting up in bed. Pt denies pain and need to void. Personal supplies and call light within reach. No needs at this time. Bed alarm intact as pt is confused.
--- NOTE | 2018-12-05 08:01 | NUR ---
PATIENT'S BREAKFAST ORDERED
--- NOTE | 2018-12-05 09:51 | NUR ---
PATIENT IN BED. PATIENT WALKS TO USE BATHROOM. ONE PERSON ASSISTING.PATIENT USES BATHROOM AND TAKES A SHOWER. ONE PERSON ASSISTING. PATIENT BACKS TO CHAIR. CHAIR ALARM ON. VITAL SIGNS AND I&O DONE. CALL LIGHT WITHIN REACH. NO OTHER NEEDS AT THIS TIME
--- NOTE | 2018-12-05 10:45 | NUR ---
Pt sitting up in chair at this time. Pt denies pain and needs at the moment. Personal supplies and call light within reach.
--- NOTE | 2018-12-05 13:38 | NUR ---
PATIENT RESTING IN BED. VITAL SIGNS AND I&O DONE. ICE WATER GIVEN. BED ALARM ON.CALL LIGHT WITHIN REACH. NO OTHER NEEDS AT THIS TIME
--- NOTE | 2018-12-05 14:20 | NUR ---
PT SITTING UP IN CHAIR EATING LUNCH. PT DENIES NEED TO VOID AND PAIN. PERSONAL SUPPLIES AND CALL LIGHT WIHTIN REACH. CLOSE TO RN STATION FOR FREQUENT MONITORING.
--- NOTE | 2018-12-05 17:47 | NUR ---
AT BEDSIDE. PT RESTING, RESP EVEN AND NON LABORED. DINNER COMING SOON, WILL WAKE PT SHORTLY. PT APPEARS COMFORTABLE, NO NOTABLE S/S OF DISTRESS. PERSONAL SUPPLIES AND CALL LIGHT WIHTIN REACH. NO NEEDS AT THIS TIME.
--- NOTE | 2018-12-05 17:56 | NUR ---
PATIENT RESTING IN BED. IN ROOM. VITAL SIGNS AND I&O DONE. PATIENT DID NOT VOID DURING THIS PERIOD. RN NOTIFIED. CALL LIGHT WITHIN REACH. BED ALARM ON. NO OTHER NEEDS AT THIS TIME
--- NOTE | 2018-12-05 18:39 | NUR ---
PT CONFUSED. UP TO CHAIR FOR MEALS. SLEEPY TODAY. TOLERATING DIET. STANDBY ASSIST. BED ALARM INTACT. SEIZURE PREC.
--- NOTE | 2018-12-05 18:49 | NUR ---
DR. CLAY AWARE PT HAS NOT VOIDED SINCE EARLIER THIS AFTERNOON PRIOR TO HIS NAP POST SHOWER. PT IS AROUSABLE THIS PM, HOWEVER DOES NOT STAY AWAKE FOR AN EXTENDED PERIOD OF TIME TO TAKE SCHEDULED DOSE OF SEROQUEL/KCL PO. PT REFUSED TO TAKE THIS AT THIS TIME. STATES HE SLEEPS HEAVY AT HOME AND DOES NOT LIKE TO BE WOKEN UP FROM HIS NAPS. PT'S RESP ARE EVEN AND NON LABORED. VITALS ARE STABLE, PT IS ON RA. BED ALARM INTACT. CLOSE TO RN STATION. NO NEEDS AT THIS TIME. WILL PASS OFF TO NEXT SHIFT.
--- NOTE | 2018-12-05 19:00 | NUR ---
RECEIVED REPORT FROM ANGELA LEVIN. WHITEBOARD UPDATED. pt RESTING WITH EYES CLOSED, RESPIRATIONS REGULAR. AT BEDSIDE.
--- NOTE | 2018-12-05 20:00 | NUR ---
pt AWAKE AND MOVING. 1700 MEDS GIVEN PER MD ORDER ALONG WITH OTHER MEDS (SEE MAR). pt WALKED INTO BATHROOM AND CLOSED DOOR. REFUSED TO LET ME SEE WHAT HE WAS DOING. ORIENTED TO SELF. INSISTED ON PUTTING ON PANTS. AT BEDSIDE. REORIENTED TO SITUATION, pt STATED "WELL THAT'S AWFUL". CONFUSED BY SHADOWS ON WINDOW. GLENN, SECURITY IN ROOM, IN ROOM. IV LEAKING. DID NOT REMOVE DUE TO CURRENT MENTAL STATE.
--- NOTE | 2018-12-05 22:12 | NUR ---
VITALS AND I&OS DONE AND CHARTED. I WARMED UP HIS DINNER FOR HIM. BEDSIDE TABLE AND CALL LIGHT IN REACH. PT NEEDED NOTHING MORE AT THIS TIME.
--- NOTE | 2018-12-05 22:30 | NUR ---
HELPED PT TO THE BED FROM THE CHAIR. BED ALARM SET. BEDSIDE TABLE AND CALL LIGHT IN REACH.
--- NOTE | 2018-12-06 00:15 | NUR ---
ROUNDED ON pt. RESTING WITH EYES CLOSED, RESPIRATIONS REGULAR. BED ALARM ON.
--- NOTE | 2018-12-06 02:02 | NUR ---
ROUNDED ON pt. RESTING WITH EYES CLOSED, RESPIRATIONS REGULAR, RATE = 14. BED ALARM ON.
--- NOTE | 2018-12-06 04:46 | NUR ---
pt BECOMING RESTLESS. BED ALARMING. pt STATES "I HAVE TO GO GET MY TRUCK AND GO TO SCHOOL". pt ORIENTED TO SELF ONLY. pt UP TIDYING ROOM, WASHING HANDS AND MOVING PERSONAL ITEMS. IV DC'D BY THIS RN. pt COOPERATIVE. ASSESSMENT DONE. pt CONTINUES TO MOVE AROUND PURPOSEFULLY INSISTING "I NEED TO GET READY TO LEAVE AND GET MY TRUCK. I NEED MY GIG DRIVE". SECURITY GLENN ARRIVED FOR 1:1.
--- NOTE | 2018-12-06 05:19 | NUR ---
VITALS AND I&OS DONE AND CHARTED. CALL LIGHT WITHIN REACH. PT NEEDS NOTHING AT THIS TIME.
--- NOTE | 2018-12-06 05:23 | NUR ---
pt RESTED MOST OF SHIFT. UP JUST BEFORE 0500, BUSY REQUIRING 1:1. CONFUSED, ORIENTED TO SELF ONLY. IV LEAKING, DC'D, WILL ATTEMPT IV START PRIOR TO END OF SHIFT. TOLERATING REGULAR DIET. SBA. DOES NOT USE CALL LIGHT, BED/CHAIR ALARM ON.
--- NOTE | 2018-12-06 07:25 | NUR ---
Pt awake, up walking in room. Pt is pleasant, but confused. Per previous report pt attempting to leave room. Security in with pt visiting. Pt is redirectable, but needs supervisions at this time. Security to stay with pt for now.
--- NOTE | 2018-12-06 08:02 | NUR ---
PATIENT'S BREAKFAST ORDERED
--- NOTE | 2018-12-06 09:19 | NUR ---
PT SITTING UP IN CHAIR LOOKING OUT THE WINDOW AT THE SNOW FALLING. CHAIR ALARM INTACT. PT HAS NO NEEDS. PERSONAL SUPPLIES AND CALL LIGHT WITHIN REACH.
--- NOTE | 2018-12-06 09:35 | NUR ---
PATIENT SITTING UP IN CHAIR READING A NEWSPAPER. VITAL SIGNS AND I&O DONE. CALL LIGHT WITHIN REACH. NO OTHER NEEDS AT THIS TIME
--- NOTE | 2018-12-06 13:12 | NUR ---
PATIENT SLEEPING. VITAL SIGNS AND I&O DONE. PATIENT DID NOT VOID DURING THIS PERIOD. PATIENT DID NOT TAKE LUNCH BECAUSE IS SLEEPING. RN NOTIFIED. CALL LIGHT WITHIN REACH. NO OTHER NEEDS AT THIS TIME
--- NOTE | 2018-12-06 14:13 | NUR ---
Pt sitting up in chair. Pt denies pain. Personal supplies within reach of pt. Pt states he has no needs. Chair alarm intact.
--- NOTE | 2018-12-06 15:04 | NUR ---
PATIENT SITTTING UP IN CHAIR. PATIENT WALKS TO BATHROOM TO TAKE A SHOWER. PATIENT TAKES A SHOWER. ONE PERSON ASSISTING. PATIENT BACKS TO CHAIR. CHAIR ALARM ON. CALL LIGHT WITHIN REACH. NO OTHER NEEDS AT THIS TIME
--- NOTE | 2018-12-06 15:50 | NUR ---
PT UP WALKING IN HALLWAY WITH CONSULTING PRACTICE DIRECTOR. PT DENIES NEEDS. PT CONFUSED, NEEDS REDIRECTING FROM STAFF FREQUENTLY. WILL CONTINUE TO MONITOR PT.
--- NOTE | 2018-12-06 17:18 | NUR ---
PATIENT REQUESTS TO WALK IN THE HALLWAY. PATIENT WALKS THREE LAPS IN THE HALLWAY. ONE PERSON ASSISTING. PATIENT BACKS TO ROOM. PATIENT BACKS TO CHAIR. CHAIR ALARM ON. PATIENT TALKS AND IS CONFUSED. PATIENT THINKS HE IS AT HOME AND TALKS ABOUT HIS FATHER. VITAL SIGNS AND I&O DONE. NO OTHER NEEDS AT THIS TIME
--- NOTE | 2018-12-06 18:15 | NUR ---
Pt confused. Standby assist. Up in chair for meals and during day, chair/bed alarm intact at all times. Tolerates reg diet. No IV, doc ok with. RA. Pt at times requires 1:1 monitoring for confusion/safety concerns.
--- NOTE | 2018-12-06 19:08 | NUR ---
RECEIVED REPORT FROM ANGELA LEVIN. pt RESTING IN CHAIR. CHAIR ALARM ON. WHITEBOARD UPDATED.
--- NOTE | 2018-12-06 21:53 | NUR ---
pt RESTING WITH EYES CLOSED. AWOKE AFTER CALLING NAME AND GENTLY SHAKING. COOPERATED AND FOLLOWED COMMANDS. VITALS TAKEN. ASSESSMENT DONE. MEDICATIONS GIVEN (SEE MAR). pt UP WANDERING AROUND ROOM, CONFUSED. ORIENTED TO SELF ONLY. SECURITY IN ROOM 1:1.
--- NOTE | 2018-12-06 22:01 | NUR ---
VITALS AND I&OS DONE AND CHARTED. FRESH ICE WATER GIVEN. SECURITY FREEDOM IS IN HIS ROOM WITH HIM WHEN I LEFT. PT WONDERING AROUND IN HIS ROOM.
--- NOTE | 2018-12-07 00:02 | NUR ---
pt RESTING IN BED WITH EYES CLOSED, RESPIRATIONS REGULAR, RATE = 16. BED ALARM ON, CURTAIN OPEN TO NURSES STATION.
--- NOTE | 2018-12-07 01:45 | NUR ---
pt RESTING WITH EYES CLOSED, RESPIRATIONS REGULAR, RATE = 14. BED ALARM ON. CURTAIN OPEN TO NURSES STATION.
--- NOTE | 2018-12-07 03:25 | NUR ---
ROUNDED ON pt. RESTING WITH EYES CLOSED, RESPIRATIONS REGULAR. RATE = 16. BED ALARM ON. CURTAIN OPEN TO NURSES STATION.
--- NOTE | 2018-12-07 04:49 | NUR ---
BED ALARM GOING OFF. pt UP TO TOILET. ORIENTED TO SELF. 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 ANSWERED OTHER QUESTIONS WITH SEEMINGLY RANDOM RESPONSES. ALLOWED TO REMAIN ON TOILET WHEN SUFFIENTLY AWAKE. STAFF AWARE OF SITUATION.
--- NOTE | 2018-12-07 05:14 | NUR ---
ASSESSMENT DONE. pt UP AND READY FOR THE DAY. LAPS IN ANGEL X3. SITTING IN CHAIR WATCHING TV.
--- NOTE | 2018-12-07 05:23 | NUR ---
pt RESTED MOST OF SHIFT. UP BEFORE 0500. CONFUSED, ORIENTED TO SELF ONLY. NO IV. TOLERATING REGULAR DIET. SBA. DOES NOT USE CALL LIGHT, BED/CHAIR ALARM ON. ABLE TO REDIRECT AND STAY IN ROOM BY SELF.
--- NOTE | 2018-12-07 07:38 | NUR ---
Pt awake, up walking about in room. 1:1 at this time for supervision reasons. Pt is pleasant and confused. Pt denies pain and sob. Personal supplies within reach. Pt has no needs at this time. Close to RN station.
--- NOTE | 2018-12-07 08:20 | NUR ---
FAXE SENT OVER THE WEEKEND TO [facility]. CONFIRMATION RECIEVED. THIS AM FAXED UPDATED CLINICALS AND RECIEVED FAX CONFIRMATION.
--- NOTE | 2018-12-07 12:41 | NUR ---
Pt sitting up in chair taking a nap. Chair alarm intact. Resp even and non labored. Pt appears without pain. Personal supplies and call light within reach.
--- NOTE | 2018-12-07 14:21 | NUR ---
Pt took a long nap this afternoon, just now voided x1 unmeasured. Dr. Santos aware. Pt drinking fluids well.
--- NOTE | 2018-12-07 15:18 | NUR ---
Pt visiting with staff in his room. Pt remains confused. Chair alarm intact. Personal supplies and call light within reach. No needs at this time.
--- NOTE | 2018-12-07 18:24 | NUR ---
PATIIENT IN BED RESTING WITH EYES CLOSED. FRESH WATER GIVEN. CALL LIGHT IN REACH. NO VOID, RN NOTIFIED. NO FURTHER NEEDS AT THIS TIME.
--- NOTE | 2018-12-07 19:32 | NUR ---
RECEIVED REPORT FROM ANGELA LEVIN. pt RESTING IN BED WITH EYES CLOSED, RESPIRATIONS REGULAR. WHITEBOARD UPDATED. BED ALARM ON.
--- NOTE | 2018-12-07 20:33 | NUR ---
ASSESSMENT DONE. pt RESTING, AWOKE TO ANSWER QUESTIONS BUT UNABLE TO TAKE PILLS AT THIS TIME. NO CHANGES ON ASSESSMENT. STATED "I HAD A GOOD DAY". BED ALARM ON. WILL ATTEMPT MED PASS AT A LATER TIME. CURTAIN OPEN TO NURSES STATION.
--- NOTE | 2018-12-07 22:47 | NUR ---
ATTEMPTED ANOTHER MED PASS. pt RESTING WITH EYES CLOSED, ATTEMPTED TO ROUSE. pt RESPONDED VERBALLY WITH A GRUNT BUT THEN PULLED HIS ARM AWAY. MORE SHAKING RESULTED IN pt USING VULGAR LANGUAGE AND STATING "LEAVE ME ALONE". ATTEMPTED SEVERAL MORE TIMES. MD AWARE MED PASS WILL BE LATE OR NOT GIVEN.
--- NOTE | 2018-12-07 23:21 | NUR ---
ANGELA NUNES ABLE TO ROUSE pt TO TAKE MEDICATIONS. MEDS GIVEN (SEE MAR). pt APOLOGIZED "I'M TIRED AND JUST NEED SLEEP". AFTER THE pt TOOK MEDS HE TIRED TO SIT UP AND KEPT FALLING BACK ON THE BED. A FEW MINUTES LATER HE BECAME MORE COORDINATED AND DISROBED. UP TO TOILET, CARES DONE. DMITRIY IN ROOM 1:1.
--- NOTE | 2018-12-08 01:20 | NUR ---
pt WANDERING AROUND ROOM, COMPLIANT TO STAY IN ROOM. CURTAIN AND DOOR OPEN TO NURSES STATION.
--- NOTE | 2018-12-08 03:13 | NUR ---
pt UP WANDERING AROUND ROOM WITH SECURITY 1:1. CARLYN NUNES RN. pt AWOKE AND AMBULATED TO NURSES STATION REQUESTING TO ORDER BREAKFAST. ABLE TO REDIRECT CONTINUES TO TRY AND LEAVE ROOM, 1:1 FOR NOW.
--- NOTE | 2018-12-08 04:21 | NUR ---
THIS RN RELIEVED SECURITY FOR 1:1. ASSESSMENT DONE. pt ALLOWED THIS RN TO AUSCULTATE HEART BUT REFUSED LUNGS. PICKING AT CRACKERS AND PEANUT BUTTER. NEW ALLEVYN IN PLACE ON LEFT ARM. pt REQUESTED IT BE REMOVED, EDUCATED ON WOUND CARE. THIS RN IN ROOM FOR 1:1
--- NOTE | 2018-12-08 04:53 | NUR ---
pt DIFFICULT TO REDIRECT. AMBULATED IN ANGEL X1. REFUSED TO BELIEVE HE WAS IN [place] "I KNOW I'M NOT IN [place], DON'T SAY THAT" WOULD NOT VERBALIZE WHAT TOWN HE THOUGHT HE WAS IN. POINTED TO STAFF AND SAID "THAT'S MY DAUGHTER". READ SIGNS AND THEN USED WORDS IN THE SIGN WHEN ANSWERING QUESTIONS ABOUT OTHER SUBJECTS. REFUSED TO GO BACK TO ROOM "I DON'T WANT TO BE HELD HOSTAGE". SLOWLY ABLE TO DIRECT BACK TO ROOM. DMITRIY MILLER IN ROOM 1:1.
--- NOTE | 2018-12-08 05:12 | NUR ---
pt RESTED ON AND OFF DURING SHIFT. SBA, WANDERS AROUND ROOM AND INTO ANGEL IF NOT 1:1. DIFFICULTY REDIRECTING AT TIMES. TOLERATING REGULAR DIET. NO IV. BED/CHAIR ALARM. NEW ALLEVYN TO LEFT ARM. DOES NOT USE CALL LIGHT.
--- NOTE | 2018-12-08 05:52 | NUR ---
1:1 with pt from near 0500, pt was falling asleep on bed, redirected to bed with excuse his feet must be tired from all the walking he did. Currently in bed, laying on his right side, eyes closed, resp even and unlabored, covered with a blanket. Heat turned up in room as room was cool, bed alarm in place.
--- NOTE | 2018-12-08 07:26 | NUR ---
Pt sleeping soundly, resp even and non labored. Pt appears without pain, flacc scale 0/10. Bed alarm intact. Personal supplies and call light within reach. No needs at this time.
--- NOTE | 2018-12-08 08:00 | NUR ---
FAXED CHART NOTES TO [facility]. RECIEVED FAX CONFIRMATION.
--- NOTE | 2018-12-08 09:03 | NUR ---
PATIENT SITTING IN CHAIR PLAYING CARDS. RN IN ROOM. FRESH WATER GIVEN. CALL LIGHT IN REACH. NO FURTHER NEEDS AT THIS TIME.
--- NOTE | 2018-12-08 10:41 | NUR ---
Pt in room visiting with nursing staff. Pt is on room air, resp even and non labored. Pt denies needs. Personal supplies and call light within reach. Bed/Chair alarm intact at all times.
--- NOTE | 2018-12-08 13:53 | NUR ---
Pt sleeping soundly, resp even and non labored. Pt appears comfortable, flacc pain scale 0/10. Personal supplies and call light within reach.
--- NOTE | 2018-12-08 14:50 | NUR ---
ST VISIT: PT SITTING ON BEDSIDE COUCH UPON THERAPIST'S ARRIVAL WITH FIELD LABORER CLOSE BY. PT AGREEABLE TO TX. PT DID TERMINATE SESSION EARLIER THAN DESIRED, BY STATING, "I'VE GOTTA SURPRISE THEM," AND STANDING UP AND WALKING OUT OF THE ROOM. FIELD LABORER WAS NOTIFIED AND SHE DID STAY WITH HIM AT THAT POINT. SKILLED SPEECH THERAPY WAS PROVIDED TO IMPROVE COGNITIVE-LINGUISTIC ABILITIES AND INDEPENDENCE IN ADLS. PT COMPLETED ORIENTATION TASKS WELL EXPRESSIVE AND RECEPTIVE LANGUAGE TASKS. PT ORIENTED TO CITY AND SELF, THOUGH NOT BUILDING OR SITUATION. PT REORIENTED TO BUILDING, THOUGH HE WAS UNABLE TO RESTATE IT AFTER ONE MINUTE. PT CONTINUES TO DEMONSTRATE DIFFICULTY WITH VERBAL REPETITION. EXPRESSIVE LANGUAGE TASKS ATTEMPTED FOR NAMING; SERA WAS ABLE TO IMITATE SINGLE WORDS WHEN PROVIDED WITH A VISUAL SPELLING AND THEN READING. SERA DEMONSTRATED DIFFICULTY BEING REDIRECTED TO TASKS TODAY. CONT WITH POC.
--- NOTE | 2018-12-08 15:11 | NUR ---
PATIENT IN BED RESTING WITH EYES CLOSED. FRESH WATER GIVEN. RN IN ROOM. CALL LIGHT IN REACH. NO FURTHER NEEDS AT THIS TIME. PATIENT WOULD NOT EVEN OPEN EYES AND TRY TO GET UP TO VOID. RN NOTIFIED.
--- NOTE | 2018-12-08 17:02 | NUR ---
PATIENT UP TO BATHROOM TO SHOWER. PATIENT STAYED IN SHOWER FOR OVER AN HOUR REFUSING TO GET OUT. PATIENT WAS STARTING TO GET AGGITATED WHEN AIR COMPRESSOR MECHANIC WAS TRYING TO HELP HIM GET DRESSED. 2 MORE RN'S CAME IN TO ASSIST. PATIENT FIALLY PUT GOWN AND DEPENDS ON. PATIENT STILL VERT AGGITETD AND IS TALKING ABOUT BEING IN AND ASKING PERMISSION TO DO THINGS LIKE DRINK WATER. ANGELA CROCKETT IN ROOM A 1 ON 1. CALL LIGHT IN REACH. NO FURTHER NEEDS AT THIS TIME.
--- NOTE | 2018-12-08 17:20 | NUR ---
RECIEVED A PHONE CALL FROM THE NURSING STAFF THAT PT WAS BECOMING AGGRESSIVE AND ATTEMPTING TO LEAVE OR SAYING HE WAS GOING TO LEAVE, BEING AGGRESSIVE WITH THE STAFF, HIS ALSO IS HERE AND HE IS STILL ACTING OUT. CALLED [facility] AND TALKED WITH TIFFANY DENNISON AND HE IS GOING TO SEND WILLIE GUTIERREZ TO RE EVALUATE PT.
--- NOTE | 2018-12-08 17:57 | NUR ---
PATIENT SITTING IN CHAIR TALKING TO ANGELA CROCKETT AND WAITING FOR DINNER. FRESH WATER GIVEN. CALL LIGHT IN REACH. NO FURTHER NEEDS AT THIS TIME.
--- NOTE | 2018-12-08 18:11 | NUR ---
hortencia in speaking with pt. Pt has nursing staff at bedside continuing to monitor. Pt remains confused, redirectable at times. Pt has had sporadic episodes of increased agitation and impulsiveness throughout this shift. When When pt becomes agitated he is unable to follow requested commands from staff. Pt has been pleasant and cooperative with staff off/on this shift.
--- NOTE | 2018-12-08 18:32 | NUR ---
CONFUSED, 1:1. TOLERATING DIET. O IV SITE. AMBULATED HW STANDBY ASSIST. INCONT AT TIMES. UP TO BR WITH ASSIST. BED AND CHAIR ALARM AT ALL TIMES.
--- NOTE | 2018-12-08 19:04 | NUR ---
RECIEVED CHANGE OF SHIFT REPORT FROM OLLIE MILLER. PATIENT SITTING UP IN CHAIR WATCHING TV. WHITE BOARD UPDATED. CHAIR ALARM ON. NO MORE NEEDS AT THIS TIME.
--- NOTE | 2018-12-08 19:20 | NUR ---
CHARGE ROUNDING DONE WITH DAY SHIFT CHARGE AND DMITRIY MILLER. PATIENT IS IN THE BATHROOM. LIGHTNING ROD ERECTOR IN ROOM TO OBSERVE FOR SAFETY.
--- NOTE | 2018-12-08 20:50 | NUR ---
ASSESSMENT COMPLETE. PATIENT DENIES PAIN, SOB, OR DIFFICULTY BREATHING. PATIENT COOPERATIVE WITH CARE AT THIS TIME. PATIENT AMBULATING IN ROOM. PATIENT DISORIENTED TO TIME, PLACE, EVENT, BUT ORIENTED TO SELF, REORIENT PRN. ALLYVEN ON LEFT UPPER ARM IS CDI. PATIENT DENIES NUMBNESS AND TINGLING. PATIENT PREPARING TO BED, BED ALARM ON FOR SAFETY. NO MORE NEEDS AT THIS TIME.
--- NOTE | 2018-12-08 20:56 | NUR ---
PATIENT ATTEMPTING TO LEAVE THE ROOM TO VISIT OTHER PATIENT ROOMS. PATIENT EASILY REDIRECTABLE. PROVIDED WITH RAZOR TO SHAVE. EVENING MEDS PROVIDED. PATIENT AGREEABLE TO GET INTO BED. PRIMARY RN IN ROOM FOR ASSESSMENT. PATIENT REQUIRING CONSTANT VISUALIZATION FOR SAFETY AT THIS TIME.
--- NOTE | 2018-12-08 22:24 | NUR ---
PATIENT INSISTENT ON CALLING HIS . ORIENTED PATIENT TO TIME AND PLACE. PATIENT AGREES THAT HE IS AWARE OF TIME AND PLACE, HOWEVER HE IS UNABLE TO VERBALIZE THIS BACK TO ME. PATIENT STATES "I JUST WANT HER TO KNOW WHERE I AM AND SAY GOOD NIGHT". ASSISTED PATIENT WITH PHONE CALL. ALLOWED PATIENT PRIVACY TO PHONE CALL BUT STOOD OUTSIDE THE ROOM. PATIENT'S CALLED THE NURSES STATION AFTER TALKING TO HER AND ASKED STAFF TO NOT ALLOW HIM TO CONTACT HER ANYMORE BECAUSE HE WAS RUDE TO HER AND IS STILL CONFUSED. THIS REQUEST REPORTED TO THE PRIMARY RN. PHONE REMOVED FROM PATIENT BEDSIDE FOR THE TIME BEING. PATIENT IS CALM AND RESTING IN BED WITH BED ALARM ON.
--- NOTE | 2018-12-08 23:37 | NUR ---
rounded on patient resting in bed on left side, respiratory rate is even and unlabored. bed alarm on for safety.
--- NOTE | 2018-12-09 02:11 | NUR ---
ROUNDED ON PATIENT RESTING IN BED ON LEFT SIDE, RESPIRATORY RATE IS EVEN AND UNLABORED. BED ALARM ON FOR SAFETY.
--- NOTE | 2018-12-09 04:15 | NUR ---
rounded on patient resting in bed on right side with eyes closed, respiratory rate is even and unlabored. bed alarm on for safety.
--- NOTE | 2018-12-09 05:05 | NUR ---
ROUNDED ON PATIENT SITTING ON TOILET WITH ALEXA RN IN ROOM. PATIENT REFUSED TO TALK, INSTEAD WOULD POINT TO GROUND AND GESTURE. PATIENT RESPONSES TO THIS RN'S QUESTIONS DID NOT FOLLOW WITH CONTEXT OF QUESTIONS ASKED. PATIENT REFUSED ASSESSMENT AT THIS TIME. OVERALL, PATIENT PLEASANT DURING INTERACTION. DMITRIY, CHARGE NURSE IN ROOM WITH PATIENT AT THIS TIME.
--- NOTE | 2018-12-09 06:01 | NUR ---
ASSESSMENT COMPLETE. PATIENT REFUSED TO TALK DURING ASSESSMENT, PATIENT WOULD NODE, YES OR NO TO QUESTION. UNABLE TO ASSESS ORIENTATION AT THIS TIME. PATIENT DENIES HAVING CHEST PAIN OR SOB. NO SIGNS OF RESPIRATORY DISTRESS. DENIES NUMBNESS OR TINGLING IN EXTREMITIES. ACTIVE BT. PATIENT MOSTLY COMPLIANT WITH CARES. BED ALARM ON FOR SAFETY. NO MORE NEEDS AT THIS TIME.
--- NOTE | 2018-12-09 07:22 | NUR ---
RECEIVED REPORT FROM ANGELA AUSTIN. PT ASLEEP IN BED WITH BED ALARM ON. RN STATES PT SLEPT MOST OF NIGHT AND WAS COMPLIANT WITH ASSESSMENTS AND MEDS.
--- NOTE | 2018-12-09 08:00 | NUR ---
FAXED UPDATED CHART NOTES INCLUDING FACE SHEET, PROG NOTES FOR 12/08/18 NURSES NOTES. RECIEVED FAX CONFIRMATION.
--- NOTE | 2018-12-09 08:15 | NUR ---
RECIEVED NOTE THAT WILLIE GUTIERREZ WAS HERE LAST NIGHT AND VISITED WITH THIS PT AND HE STATES [facility] AND [facility] HAVE A LOCKED DOWN UNIT THAT HAS A BED AND THAT THE PT WOULD BE A GOOD CANDIDATE FOR, AND THEY HAVE A BED AVAILABLE. I TALKED WITH RESHMA AT THIS FACILITY LAST WEEK, SHE STATES THE PT IS NOT APPROPRIATE FOR THEIR DEMENTIA UNIT THEY DO NOT TAKE AGRESSIVE PT, SHE SAID THEY TAKE DEMENTIA PT THAT HAVE ISSUES WITH WANDERING. I DID CALL RESHMA AT [facility] AGAIN THIS AM AND LEFT A MESSAGE FOR HER TO CALL AND POSS REVISIT ABOUT THIS PT.
--- NOTE | 2018-12-09 08:33 | NUR ---
PT IS SITTING UP IN CHAIR EATING HIS BREAKFAST. PT IS PLEASANT AND EASY TO REDIRECT. AM CARE HAS BEEN DONE. PT GIVEN WARM BLANKETS AND A ROBE. WILL CONTINUE TO MONITOR AT THE BEDSIDE.
--- NOTE | 2018-12-09 09:25 | NUR ---
VS AND I&O'S TAKEN AND DOCUMENTED. PT HAS BEEN WALKING AROUND THE ROOM AND IS SITTING UP IN THE CHAIR WATCHING TV NOW. PT HAS NO NEEDS AT THIS TIME. INFORMED PT TO TELL ME WHEN HE NEEDS SOMETHING. PT DENIES WANTING A SHOWER AT THIS TIME. I WILL ASK PT AGAIN LATER THIS AFTERNOON. WILL CONTINUE TO MONITOR PT AT THE BEDSIDE.
--- NOTE | 2018-12-09 10:40 | NUR ---
AGAIN CALLED AND LEFT A MESSAGE AT THE [facility] FOR RESHMA TO CALL ME SO WE COULD REVISIT ABOUT THIS PT. ALSO CALLED AND SPOKE WITH BETY AT [facility] AND SHE STATED THEY GOT THE UPDATED CHART NOTES AND THEY STILL DO NOT HAVE ANY BEDS AVAILABLE, BUT TO KEEP SENDING CHART NOTES.
--- NOTE | 2018-12-09 11:07 | NUR ---
PT WALKED ONE LAP IN THE HALLWAY AND RETURNED TO HIS ROOM. PT IS NOW SITTING UP IN THE CHAIR COLORING. LUNCH HAS BEEN ORDERED. FRESH WATER GIVEN. WILL CONTINUE TO MONITOR PT AT THE BEDSIDE.
--- NOTE | 2018-12-09 11:44 | NUR ---
PT HAS SITTER IN ROOM. APPEARS CONTENT.
--- NOTE | 2018-12-09 12:09 | NUR ---
PT IS SITTING UP IN THE CHAIR AND EATING LUNCH AT THIS TIME. WILL CONTINUE TO MONITOR.
--- NOTE | 2018-12-09 13:07 | NUR ---
VS AND I&O'S TAKEN AND DOCUMENTED. PT IS RESTING IN THE CHAIR AND WATCHING TV. PT STATES THAT HE HAS NO NEEDS AT THIS TIME. WILL CONTINUE TO MONITOR.
--- NOTE | 2018-12-09 13:26 | NUR ---
ASSISTED PT TO BED WITH CRISELDA PETERSON. PT UNABLE TO KEEP HIS EYES OPEN. BED ALARMS ON. WITHIN EYESIGHT OF NURSES STATION.
--- NOTE | 2018-12-09 13:27 | NUR ---
ANGELA MORALES, ASSISTED WITH GETTING THE PT BACK TO BED FROM THE CHAIR. PT IS NOW RESTING IN BED WITH HIS ARM OVER HIS EYES. PT GIVEN WARM BLANKETS. CALL LIGHT IS IN REACH. BED ALARM IS SET. OK PER RN TO MONITOR PT FROM NURSES STATION.
--- NOTE | 2018-12-09 14:34 | NUR ---
PT SITTING ON SIDE OF BED TALKING WITH CRISELDA PETERSON. ORDERED DINNER.
--- NOTE | 2018-12-09 15:13 | NUR ---
PT UP TO THE BATHROOM. NEW ATTENDS PLACED. PT IS BACK TO BED AND STATES THAT HE WOULD LIKE TO NAP. PT'S IS NOW AT THE BEDSIDE. BED ALARM IS SET. ANGELA MORALES, HAS BEEN UPDATED. WILL CONTINUE TO MONITOR FROM THE NURSES STATION. CALL LIGHT IS IN REACH.
--- NOTE | 2018-12-09 16:30 | NUR ---
PT IS SLEEPING AT THIS TIME. PT'S IS SITTING AT THE BEDSIDE AND IS AWARE TO LET US KNOW IF SHE NEEDS ANYTHING. CALL LIGHT IS IN REACH. BED ALARM IS SET. WILL CONTINUE TO MONITOR PT FROM THE NURSES STATION.
--- NOTE | 2018-12-09 16:31 | NUR ---
PT ASLEEP IN BED WITH BED ALARMS ON. SELVIN IN ROOM READING IN CHAIR.
--- NOTE | 2018-12-09 17:39 | NUR ---
PATIENT SLEEPING SO HE HASNT EATEN OR DRANK ANY FLUIDS. HE ALSO HASNT USED THE RESTROOM. PATIENT IS LAYING AND RESTING.
--- NOTE | 2018-12-09 19:10 | NUR ---
CHARGE NURSE REPORT RECEIVED FROM ROSANNA DIAZ WITH 1:1 WITH ANGELA HEREDIA. PT UP WALKING AROUND THE ROOM.
--- NOTE | 2018-12-09 19:30 | NUR ---
pt ATTEMPTED TO TRY TO PUT ON PANTS WHILE STANDING. pt FELL BACK, HEAD HIT THE CABINET. pt POINTED TO AREA ON LEFT SIDE OF HEAD, SKIN INTACT. SKIN TEAR TO LEFT FOREARM, COVERED WITH ALLEVYN. VSS. pt DENIES FEELING DIZZY OR LIGHTHEADED. pt GOT UP WITH MINIMAL ASSISTANCE. SAT ON SIDE OF BED AND TOOK MEDICATIONS (SEE MAR). FINISHED DINNER.
--- NOTE | 2018-12-09 19:30 | NUR ---
PT FINALLY WOKE FROM NAP AND WAS EATING DINNER AT BEDSIDE WITH SITTER IN ROOM. PT THEN DECIDED HE NEEDED TO PUT HIS PANTS BACK ON. WAS WALKING TO CLOSET WITH PANTS AND TRIPPED OVER THEM. FELL TO FLOOR. MULTIPLE STAFF INTO ROOM TO ASSIST. VS ASSESSED WNL AND NORMAL FOR HIM. PT DENIES ANY PAIN OR DISCOMFORT. STAFF ASSESSED HIS BODY AND THE ONLY THING FOUND WAS A SMALL DIME SIZED SKIN TEAR ON LEFT FOREARM. ALLYVN PLACED. PT ASSISTED BACK TO BED AND FINISHING DINNER. PT CONTINUES TO DENY ANY PAIN OR DISCOMFORT. ANGELA HEREDIA CONTINUES TO STAY IN ROOM WITH PT SITTER. CALLED DR DIAZ TO ALERT TO FALL AND PATIENT STATUS.
--- NOTE | 2018-12-09 20:30 | NUR ---
, SELVIN, ARRIVED FOR EVENING VISIT. INFORMED ABOUT pt FALL. ALL QUESTIONS ANSWERED. pt LAYING ON FLOOR REMARKING ON "RELFECTIONS ON THE FLOOR". DIFFICULT TO REDIRECT. THIS RN IN ROOM FOR 1:1 CARE.
--- NOTE | 2018-12-09 21:38 | NUR ---
pt CONTINUES TO RUB LEFT HIP AND STATES "YES" WHEN ASKED IF IT HURTS. PRN PAIN MED GIVEN (SEE MAR). pt LAYING ON BED, ATTEMPTING TO EXPLAIN HOW TO GET TO A BUILDING, YELLING AND USING VULGAR LANGUAGE. ASSESSMENT DONE. THIS RN CONTINUING TO BE 1:1 IN ROOM.
--- NOTE | 2018-12-09 21:56 | NUR ---
pt POSITIONED IN BED WITH ASSISTANCE FROM ANGELA IZAGUIRRE AND THIS RN. pt CONTINUES TO SPEAK ABOUT A WALL AND A BUILDING. BED ALARM ON, THIS RN 1:1 IN ROOM.
--- NOTE | 2018-12-09 22:30 | NUR ---
pt RESTING WITH EYES CLOSED, RESPIRATIONS REGULAR AND NON LABORED. BED ALARM ON. WILL ALLOW pt TO REST AT THIS TIME.
--- NOTE | 2018-12-10 02:14 | NUR ---
PT LAYING ON RIGHT SIDE, RESP EVEN AND UNLABORED. BED ALARM IN PLACE, S/R UP.
--- NOTE | 2018-12-10 04:01 | NUR ---
ROUNDED ON pt. RESTING WITH EYES CLOSED, RESPIRATIONS REGULAR AND UNLABORED. RATE = 16. BED ALARM ON.
--- NOTE | 2018-12-10 05:46 | NUR ---
pt AWAKE, ATTEMPTING TO EXIT THE BED. pt UP AND STATING "FALL OUT! PARADE STEP" CALLING ME CORPORAL. DIFFICULT TO REDIRECT. ASSISTANCE FROM ALEXA RN TO GET BACK TO BED. LAYING IN BED WITH THIS RN 1:1 IN ROOM. ASSESSMENT DONE. BED ALARM ON.
--- NOTE | 2018-12-10 06:54 | NUR ---
pt UP WANDERING AROUND ROOM. pt STATED "BELIEVE IT OR NOT I'M FROM THE PSYCH JI". CONTINUALLY STATING "ROUTE STEP, PARADE STOP". HE THEN LAID DOWN ON THE BED AND SAID "I'M " AND COVERED HIS HEAD WITH A BLANKET. HE COMMENTED ON THE NURSES OUT AT THE NURSES STATION. HE BUILT TOWERS WITH VARIOUS ITEMS FROM HIS ROOM. HE INSISTED THAT WE WHISPER EVERYTHING SO THE NURSES COULDN'T HEAR. WHEN CALL LIGHTS WENT OFF HE STATED "OH NO YOU'D BETTER ANSWER THE PHONE". REORIENTATION DID NOT HELP. HE STATED "THIS IS THE WORST PLATOON EVER!" AND ASKED "WHERE DID ALL MY PEOPLE GO?" HE STATED "I AM A SOCIOPATH". 1:1 AT THIS TIME.
--- NOTE | 2018-12-10 07:03 | NUR ---
pt HAD A FALL EARLY IN THE SHIFT. NEW SKIN TEAR TO LEFT FOREARM. pt RESTED MOST OF SHIFT. AROUND 0500 pt STANDING UP WITH EYES CLOSED, DIFFICULT TO REDIRECT. 1:1 WHILE AWAKE. BED/CHAIR ALARM.
--- NOTE | 2018-12-10 07:36 | NUR ---
Pt awake in bed, speaking with nursing staff. Pt is in good spirits this am. Pt denies pain at this time. Personal supplies and call light within reach. No needs at this time.
--- NOTE | 2018-12-10 07:44 | NUR ---
PT IS RESTING IN BED AT THIS TIME. WILL CONTINUE TO MONITOR AT THE BEDSIDE.
--- NOTE | 2018-12-10 10:50 | NUR ---
VS AND I&O'S TAKEN AND DOCUMENTED. PT IS REFUSING TO PUT ANY ATTENDS ON. PT IS NOW RESTING IN BED AND STATES THAT HE HAS NO NEEDS AT THIS TIME. CALL LIGHT IS IN REACH. BED ALARM IS SET. WILL CONTINUE TO MONITOR PT AT THE BEDSIDE.
--- NOTE | 2018-12-10 12:26 | NUR ---
PT IS BACK TO BED FROM WALKING A LAP AROUND THE HALLWAY AND USING THE RESTROOM. PT STATES HE WOULD LIKE TO LAY DOWN AND RELAX. PT ALSO STATES THAT HE WOULD LIKE TO SAVE HIS LUNCH FOR AFTER HIS NAP. CALL LIGHT IS IN REACH. BED ALARM IS SET. WILL CONTINUE TO MONITOR AT THE BEDSIDE.
--- NOTE | 2018-12-10 12:28 | NUR ---
Pt in bed at this time, resp even and non labored. Pt denies pain. Personal supplies and call light within reach.
--- NOTE | 2018-12-10 13:15 | NUR ---
assumed care, bedside report, 1:1 sitter in room. pt not talkative, denies needs. NETWORK MANAGEMENT SPECIALIST aware of change of care. pt dressed in street clothing. flat affect. discussed plan of care with dodie escamilla material planner - [facility] - they will transfer after mental health eval here - call dodie when [facility] calls for pt. pt denies needs at introduction of this nurse.
--- NOTE | 2018-12-10 14:38 | NUR ---
PT HAS BEEN CONFUSED. PT WALKED WITH ROOFING FOREMAN IN ANGEL.
--- NOTE | 2018-12-10 16:41 | NUR ---
FAXED UPDATED PROG NOTES AND NURSES NOTES TO [facility] [phone]. FAX CONFIRMATION RECEIVED 12/10/18 431PM.
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
--- NOTE | 2018-12-10 18:25 | NUR ---
pt has 1:1 aid at all times for confusion and safety. bed alarms on. poor oral intake and poor output - dr. villalobos. awaiting trsf to [facility]. if they call call dodie at [facility]. They are to transport pt.
--- NOTE | 2018-12-10 19:29 | NUR ---
patient is currently napping in bed. patients had stepped out for a few moments. I will resume monitoring patient at bedside.
--- NOTE | 2018-12-10 20:00 | NUR ---
PATIENT RESTING ON HIS RIGHT SIDE QUIETLY, EYES CLOSED, RESPIRATIONS REGULARAND EVEN. AT BEDSIDE.
--- NOTE | 2018-12-10 22:10 | NUR ---
PATIENT UP TO THE BATHROOM WITH 1PSBA AND THEN BACK TO BED AND DRINKING A CARTON OF MILK.
--- NOTE | 2018-12-11 01:04 | NUR ---
PATIENT RESTING QUIETLY ON HIS RIGHT SIDE, RESPIRATIONS 16, EYES CLOSED, PATIENT APEARS TO BE IN NO DISTRESS.
--- NOTE | 2018-12-11 03:23 | NUR ---
PATIENT HAS BEEN RESTING QUIETLY, WITH HIS EYES CLOSED, AND EVENAND REGULAR RESPIRATIONS.
--- NOTE | 2018-12-11 04:20 | NUR ---
patient has remained asleep.
--- NOTE | 2018-12-11 06:08 | NUR ---
PATIENT RESTED MOST OF THE NIGHT WITH EYES CLOSED, WITH EVEN AND REGULAR RESPIRATIONS. PATIENT REMAINS CONFUSED, BUT CONVERSIVE. VS HAVE BEEN STABLE ANDPATIENT HAS BEEN COOPERATIVE.
--- NOTE | 2018-12-11 07:18 | NUR ---
RECEIVED REPORT FROM TOBACCO CONDITIONER RN. PT AWAKE IN BED WATCHING TV. VERY PLESENT. BED ALARM IN PLACE. 1:1 WITH COSTUME MISTRESS AT BEDSIDE. DENEIS NEEDS, CALL LIGHT IN REACH.
--- NOTE | 2018-12-11 09:04 | NUR ---
PATIENT TOOK A WALK AROUND THE MED/SURG UNIT HE WALKED 2 LAPS NOW HE IS SITTING IN HIS CHAIR.
--- NOTE | 2018-12-11 10:00 | NUR ---
IN TO ROUND ON PT.
--- NOTE | 2018-12-11 10:13 | NUR ---
CARE CONFERENCE PATIENT WAS SEEN BY MYSELF, DR DIAZ, AND NURSING. PATIENT IS UP IN CHAIR AND AWAKE. PATIENT IS ORIENTED TO SELF, KNOWS HE IS AT [facility], THOUGHT THE DR WAS HIS SURGEON. PATIENT THINKS HE IS HERE TO HAVE "WINDOWS RECONSTRUCTED INTO MY CHEST WALL". PATIENT STATES HE WANTS TO STAY HERE, "GUESS WE SHOULD JUST KEEP ON DOING WHAT WE'RE DOING". PATIENT REDIRECTS IN CONVERSATION WHEN TRYING TO REORIENT, BUT STILL DOESN'T ANSWER EXCEPT WITH IDEAS THAT ARE MEANINGLESS. PATIENT KNOWS HIS IS "SELVIN". IS UNCLEAR WHEN SHE WAS HERE OR IF SHE IS COMING BACK. DR DIAZ TRIED TO REORIENT SEVERAL TIMES, AND DID DISCUSS THE PLAN AND MEDICATIONS BUT PATIENT WAS NOT ABLE TO REPEAT BACK. PLAN IS TO CONTINUE TO KEEP PATIENT SAFE. CONTINUE TO LOOK FOR INPATIENT TREATMENT PLACEMENT.
--- NOTE | 2018-12-11 10:17 | NUR ---
SPOKE WITH ANGELA AT [facility] [phone] WHO IS INTAKE TODAY. SHE STATES THEY DID GET NOTES SENT YESTERDAY AND STILL AGREE HE HAS A NEED TO BE HOSPITALIZED. SHE STATES THEY ARE STILL FULL. THEY WANT DAILY NOTES FAXED TO [phone], EVEN THROUGH THE WEEKEND. SHE HAS NO IDEA WHEN A BED MAY COME AVAILABLE. SPOKE WITH MAHNAZ PEWTER FABRICATOR AT [facility] [phone] [id number]. ASKED IF SHE COULD HELP FIND RESOURCES THROUGH [place] TO CALL FOR POSSIBLE INPATIENT PSYCHIATRIC MANAGEMENT. ASKED IF SHE CAN FIND US RESOURCES TO CALL FOR [place] [facility] [place]. SHE STATES SHE DOES KNOW SOMEONE TO CALL AND ASK, SHE WILL RESEARCH THIS AND GET BACK TO US. SHE HAS OUR OFFICE NUMBER.
--- NOTE | 2018-12-11 10:44 | NUR ---
PATIENT WENT ON ANOTHER WALK WITH THIS SOUND RANGING CREWMEMBER. HE DID 2 LAPS AROUND MED/SURG AND THEN HAD SOME VANILLA ICE CREAM WHEN HE GOT BACK. LAB CAME AND GOT SOME BLOOD DRAWN.
--- NOTE | 2018-12-11 11:55 | NUR ---
RECEIVED A CALL FROM Atmail AT [facility] STATING NATALIA HAS A MARK-PSYCH UNIT WHO ARE REQUESTING UPDATED CLINCALS BE FAXED TO [facility] [place] [phone]. FAXED TO THAT NUMBER FACE SHEET/ORIGINAL H&P/PROG NOTES X 4 DAYS/LAST OT NOTE/LAST ST NOTE/CHART NOTES X LAST 3 DAYS. FAX CONFIRMATION RECEIVED AT 1140AM. ALSO FAXED SAME TO [facility] [phone]. FAX CONFIRMATION RECEIVED 1156AM. UPDATED DR DIAZ AND STAFF.
--- NOTE | 2018-12-11 12:00 | NUR ---
PT UP TO CHAIR FOR LUNCH. PT IDS COOPERATIVE WITH CARES. 1:1 WITH LOADER HELPER. AMBULATING IN HALLS. TOLERATING WELL.
--- NOTE | 2018-12-11 12:25 | NUR ---
PT SITTING IN CHAIR-EATING A SNACK. HE STATED THAT HE IS GOING ON A HIGH PROTEIN DIET AND PLANS TO WALK ON AN INCLINE TREADMILL. THIS WILL HAPPEN [facility] ST[facility] WITH [facility] ENCOURAGED HIM, VISIT WAS PLEASANT MANAGER PACU IN RM. WILL FOLLOW NEEDED
--- NOTE | 2018-12-11 14:38 | NUR ---
[employer] CAME IN ROOM TO EVALUATE PATIENT. SERA IS NOW RESTING IN THE CHAIR EATING A SNACK.
--- NOTE | 2018-12-11 14:39 | NUR ---
[facility] IN TO SEE PATIENT.
--- NOTE | 2018-12-11 15:48 | NUR ---
PATIENT IS RESTING IN CHAIR WITH ALARM ON. FRESH WATER GIVEN.
--- NOTE | 2018-12-11 16:49 | NUR ---
FAXED TO [facility] [phone] UPDATED PROG NOTES, DAILY NURSES NOTES. FAX CONFIRMATION RECEIVED 433PM. SPOKE WITH HOSPITAL PRINCIPAL BIOINFORMATICS SPECIALIST, KIZZY. FAX COVER SHEETS GIVEN FOR FRIDAY AND FRIDAY FOR WEEKEND PRINCIPAL BIOINFORMATICS SPECIALIST TO FAX DAILY UPDATED PROG NOTES AND NURSES NOTES. FAX SHEETS FILLED OUT AND READY FOR THEM TO USE. SHE STATES UNDERSTANDING AND WILL PASS IT ON IN SHIFT REPORT.
--- NOTE | 2018-12-11 17:13 | NUR ---
PATIENT EATING DINNER. BEFORE DINNER THIS ASSOCIATE PROFESSOR OF ENGLISH FILED HIS NAILS. NO NEEDS AT THIS TIME.
--- NOTE | 2018-12-11 18:52 | NUR ---
PT HAD GOOD DAY. COOPERATIVE WITH CARES. 1:1. AMBULATING IN HALLS. VSS U/O QS. IN FOR VISIT. LIFE WAYS IN TO SEE PT TODAY. WAITING FOR PLACEMENT.
--- NOTE | 2018-12-11 21:10 | NUR ---
FARE ENFORCEMENT OFFICER ROUNDING REPORT. PT RESTING IN BED WITH EYES CLOSED, APPEARS TO BE SLEEPING. PT AT BEDSIDE. DENIES NEEDS AT THIS TIME. PT CONTINUES TO BE 1:1, BODY TECHNICIAN/PAINTER IN ROOM UPON WRITERS DEPARTURE.
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
--- NOTE | 2018-12-11 21:50 | NUR ---
PATIENT JUST GOT OUT OF BED SLAMMED THE BATHROOM DOOR CURSING AND SWEARING AT THE STAFF AND THEN GOT BACK INTO BED, AND IS STILL AND QUIET AT THIS TIME RESPIRATIONS EVEN.
--- NOTE | 2018-12-11 22:10 | NUR ---
PT VERY AGITATED WITH STAFF. PT SPEAKING VERY LOUDLY. PT STATING "POLICE KNOWS HIM' PT STATES THERES " CARS IN THE ROOM." PT GOT OUT OF BED AGITATED AND YELLING AT STAFF. SECURITY CAME TO ROOM.
--- NOTE | 2018-12-11 22:57 | NUR ---
PT AGITATED. SECURTIY IN ROOM WITH PT.
--- NOTE | 2018-12-11 23:33 | NUR ---
SECURITY HAS BEEN ABLE TO LEAVE THE ROOM AND SITTERS HAVE COME OUT OF THE ROOM PATIENT HAS GOTTEN BACKINTO BED AND IS WATCHING TV.
--- NOTE | 2018-12-12 00:14 | NUR ---
PATIENT UP IN THE BATHROOM AT THIS TIME.
--- NOTE | 2018-12-12 00:15 | NUR ---
PATIENT CAME OUT INTO HALLWAY BEING LOUD, I REMINDED HIM HE NEEDS TO BE QUIET BECAUSE PATINETS ARE SLEEPING. HE SAID "YEAH, YOU ARE GOING TO BE ONE OF THEM IN A MINUTE." RN JAS ASKED THE PATIENT TO GO BACK INTO HIS ROOM AND CALMED THE PATIENT DOWN. HE IS CURRENTLY PEEKING OUT OF THE DOOR AT THE NURSING STATION.
--- NOTE | 2018-12-12 01:38 | NUR ---
PATIENT STILLBEING CONFRONTATIONAL, BUT ASKED FOR HIS MEDICATIONS. PM MEDICATIONS WERE ADMINISTERED. CABINET IN ROOM IS LOCKED. PATIENT AGAIN STANDING AT THE DOOR AND ASKED ME IF I WAS," THE HEAD OF THE [employer]." PATIENT CURRENTLY STANDING IN THE ROOM PEAKING AROUND THE CURRENT.
--- NOTE | 2018-12-12 03:32 | NUR ---
PATIENT RESTING IN BED AT THIS TIME, RESPIRATIONS 16 AND REGULAR, EYES CLOSED, CALL LIGHT IN REACH.
--- NOTE | 2018-12-12 04:24 | NUR ---
USHA A VIDEO EDITING INTERNSHIP FROM [facility] CALLED TO CHECK ON THE PATIENT TO MAKE SURE HE WAS STILL HERE AND HAD NOT BEEN TRANSFERED OR DISCHARGED. I INFORMED HER THAT HE IS STILL HERE UNDER OUR CARE. USHA SAID THEY STILL DO NOT HAVE A BED FOR THE PATIENT, THAT THEY WERE FULL AND HAD NO DISCHARGES PLANNED FOR THE WEEKEND, SO THE EARLIEST THEY MAY HAVE AN OPENING WOULD BE POSSIBLY FRIDAY.
--- NOTE | 2018-12-12 04:57 | NUR ---
PATIENT IS FINALLY STILL IN BED ON HIS RIGHT SIDE IN BED. EYES CLOSED, RESPIRATIONS REGULAR AND EVENAT A RATE OF 16, ANDHIS CALL LIGHT IN REACH. DANIEL CALLED TO MAKE SURE THE PATIENT IS STILL HERE, BUT WILL HAVE A BED ON FRIDAY AT THE EARLIEST. PATIENT DID FINALLY TAKE HIS PM PILLS, BUT HAS BEEN CONFRONTATIONAL TOWARDS THE STAFF MOST THE SHIFT.
--- NOTE | 2018-12-12 07:33 | NUR ---
RECEIVED REPORT FROM INSTRUCTOR DECORATING RN. PT LYING IN BED WITH EYES CLOSED. BED ALARM PLACED. VISIBLE FROM NURSING STATION. RESPIRATIONS EQUAL AND NONLABORED.
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
--- NOTE | 2018-12-12 09:08 | NUR ---
CALL TO MARY PRESLEY, [facility] CRISES WORKER, PLAN FOR HIM TO COME RE-EVALUATE PATIENT AFTER HE SEES A PATIENT IN [place].
--- NOTE | 2018-12-12 09:27 | NUR ---
PATIENT HAS BEEN INCREASINGLY AGITATED OVER THE LAST HOUR AND HAD BEEN STANDING BY THE NURSES STATION YELLING AT STAFF MEMBERS. PATIENT STATES HE IS CONCERNED ABOUT HIS . STAFF ASSISTED PATIENT TO CALL HIS , PATIENT BACK IN HIS ROOM NOW WITH SECURITY. PATIENT STILL STATES HE WANTS TO LEAVE AND DOESNT WANT TO BE "LOCKED IN THIS ROOM". PATIENT SITTING IN BEDSIDE RECLINER TALKING WITH SECURITY, VISIBLE FROM NURSES STATION.
--- NOTE | 2018-12-12 09:28 | NUR ---
PT OUT OF ROOM WITH 1:1. PT IS AGITATED AND NOT WILLING TO FOLLOW DIRECTIONS. PT IS VERBALIZING FRUSTRATION WITH STAFF "BEATING UP AND GAGING HIS LAST NIGHT". PT STATES HE DOES NOT WANT TO GO BACK TO HIS ROOM BECAUSE STAFF WILL "TRAP HIM IN THERE". PT WOULD LIKE TO LEAVE THE FACILITY. SECURITY CALLED EDISONUASE PT IS RAISING HIS VOICE TO STAFF. SECURITY PERSONEL ABLE TO DE-ESCALATE PT AND DIRRECT HIM BACK TO ROOM TO TALK. DR DIAZ AWARE OF SITUATION. SECURITY CURRENTLY WITH PT TALKING IN ROOM. WILL CONT TO MONITOR.
--- NOTE | 2018-12-12 09:31 | NUR ---
PATIENT AGITATED, UNABLE TO TAKE VITALS AT THIS TIME, RN NOTIFIED.
--- NOTE | 2018-12-12 09:33 | NUR ---
THIS OPERATIONS AND MAINTENANCE TECHNICAN ASKED TO TAKE PATIENT'S BREAKFAST TRAY. PATIENT STATES "YOURE JUST GOING TO TAKE IT TO TEST IT FOR DNA". PATIENT REASSURED THAT TRAY WOULD BE GOING BACK TO KITCHEN AND WOULD NOT BE TESTED FOR DNA.
--- NOTE | 2018-12-12 09:55 | NUR ---
ATTEMPTED TO ADMINISTER MEDICATIONS. PT IS STILL AGITATED AND THIS TIME AND TALKING TO HIM ABOUT HIS MEDICATIONS SEEMS TO INCREASE AGITATION. PT IS REFUSING TO TAKE MEDICATIONS AT THIS TIME. WILL ATTEMPT AGAIN AT A LATER TIME. SECURITY STILL AT BEDSIDE. DR DIAZ NOTIFIED.
--- NOTE | 2018-12-12 10:11 | NUR ---
PATIENT GETS AGITATED WHEN RN OR CONCRETE MIXING PLANT SUPERINTENDENT IS IN ROOM. THIS CONCRETE MIXING PLANT SUPERINTENDENT IS MONITORING PATIENT FROM NURSES STATION, SECURITY IN ROOM WITH PATIENT. PATIENT IS CALM AND WATCHING TV AT THIS TIME.
--- NOTE | 2018-12-12 10:34 | NUR ---
PATIENT SITTING BACK IN BEDSIDE RECLINER, FEET ELEVATED. PATIENT WATCHING TV QUIETLY, SECURITY IN ROOM.
--- NOTE | 2018-12-12 10:40 | NUR ---
ATTEMPTED TO ADMINISTER MEDICATIONS AND TAKE BLOOD PRESSURE. PT REFUSED BOTH. SECURITY AT BEDSIDE. PT STILL AGITATED.
--- NOTE | 2018-12-12 10:44 | NUR ---
PATIENT REFUSING VITALS, SECURITY IN ROOM.
--- NOTE | 2018-12-12 11:32 | NUR ---
PATIENT RESTING IN BEDSIDE RECLINER, EYES CLOSED, FEET ELEVATED. PATIENT VISIBLE FROM NURSES STATION.
--- NOTE | 2018-12-12 11:40 | NUR ---
PT UP TO WINDOW. IGNORING STAFF AND LOOKING OUT WINDOW. NOT ANSWERING QUESTIONS NOW. STILL WITH 1:1 STAFFING. VISIBLE FROM NURSING STATION.
--- NOTE | 2018-12-12 12:40 | NUR ---
PT INTO BATHROOM ALONE. SLAMMED BATHROOM DOOR. WILL NOT LET STAFF ASSIST.
--- NOTE | 2018-12-12 12:46 | NUR ---
PT NOW SHOWERING. STAFF AT BATHROOM DOOR FOR SAFETY.
--- NOTE | 2018-12-12 13:23 | NUR ---
PATIENT AMBULATED INTO BATHROOM WITH SUPERVISION TO VOID AND TAKE A SHOWER. PATIENT SHOWERED, REFUSING HELP. PATIENT WAS UNSTEADY ON HIS FEET. AFTER HIS SHOWER, PATIENT LEANED OVER SINK. WHEN ASKED IF HE WAS DIZZY HE STATED "YES BUT I CAN MAKE IT TO THE BED ALONE". PATIENT AMBULATED BACK TO BEDSIDE RECLINER, BACK INTO BATHROOM, THEN BACK TO BEDSIDE COUCH. PATIENT ORGANIZING HIS BELONGINGS. PATIENT STATES "IS THAT DAMN LOUD MOUTH SEARGANT OUT IN THE HALLWAY AGAIN" AND KEEPS REFERRING TO BEING ON A SHIP. PATIENT REORIENTED TO SURROUNDINGS. PATIENT APPEARS AGITATED AND ANGRY AND MUTTERS ANGRILY TO HIMSELF FREQUENTLY. PATIENT PACING IN ROOM.
--- NOTE | 2018-12-12 13:43 | NUR ---
PATIENT PLAYING WITH CALL LIGHT CORDS AND TELEPHONE CORDS. PATIENT STATES WHILE PLAYING WITH CALL LIGHT CORD "SO THATS WHAT THEY USE THIS FOR, TO HANG THEMSELVES". PATIENT REORIENTED TO SURROUNDINGS. PATIENT TALKS ABOUT "SLEEPING IN THE BELLY OF THE SHIP" AND HOW "YOU CAN ALWAYS TELL WHEN THE FLEET IS IN TOWN". PATIENT REORIENTED. PATIENT READING NEWSPAPER AT THIS TIME. VISIBLE FROM NURSES STATION.
--- NOTE | 2018-12-12 15:45 | NUR ---
PT OUT OF ROOM TO NURSING STATION. BEING RESPECTFUL TO STAFF. STILL REFUSING TO TAKE MEDICATION SAYING, " THEY SAY IM CRAZY FOR TAKING MEDICATION". THEN HE LAUGHED. PT IS EASALY DISTRATABLE AND THIS TIME. STAYING AT NURSES STATION.
--- NOTE | 2018-12-12 16:45 | NUR ---
PATIENT HAS BEEN STANDING AT NURSES STATION AND WALKING HALLWAYS COOPERATIVELY OVER THE PAST FEW HOURS. PATIENT IS NOW BECOMING AGITATED AND HAS ATTEMPTED TO CALL HIS STATING "I WANT TO GET OUT OF HERE NOW". THE PATIENT CONTINUES TO TALK ABOUT THE "VA GETTING ME OUT OF HERE". PATIENT SITTING IN BEDSIDE RECLINER MUTTERING ABOUT BEING "PISSED" AND WANTING TO LEAVE. THIS HEALTHCARE RISK CONTROL CONSULTANT AT BEDSIDE TO MONITOR PATIENT.
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
--- NOTE | 2018-12-12 17:01 | NUR ---
PATIENT STILL AGITATED, PICKS UP A TISSUE BOX AND STATES "I COULD PUT SOME TAPE ON THIS BOX WITH A CLOCK AND WIRES AND THROW IT OUT THERE IN THE HALLWAY AND YELL BOMB AND EVERYONE WOULD GO RUNNING". PATIENT SITTING IN BEDSIDE RECLINER, THIS PHONE CIRCUIT OPERATOR AT BEDSIDE MONITORING PATIENT. RN NOTIFIED.
--- NOTE | 2018-12-12 17:15 | NUR ---
RN IN ROOM FOR ASSESSMENT. PATIENT IS AGITATED. PATIENT REFUSING DINNER AT THIS TIME. PATIENT TRIED CALLING . PATIENT STATES "IM CHUCKIE COBBM THIS SON OF A BITCH ACROSS THE LOBBY" HE SETS DOWN THE PHONE. PATIENT SITTING IN BEDSIDE RECLINER. THIS APPLICATOR SPRAYER AT BEDSIDE TO MONITOR PATIENT.
--- NOTE | 2018-12-12 17:41 | NUR ---
PATIENT TRYING TO CALL 911 ON PHONE, PHONE WAS REMOVED FROM ROOM WITH RN'S PERMISSION. THIS NEWS INTERNSHIP AT BEDSIDE TO MONITOR PATIENT.
--- NOTE | 2018-12-12 17:45 | NUR ---
PATIENT VOICES HIS DISLIKE FOR THE DEAN OF EDUCATION THAT RECENTLY CAME ON DUTY AND BECOMES INCREASINGLY AGITATED, STATING THAT "THIS IS GOING TO BE A FIASCO, IM GOING TO RAISE HELL FOR HIM". PATIENT IS CONCERNED ABOUT STAFF AT NURSES STATION AND STATES THAT "THEYRE RAISING MORE HELL OUT THERE TOO". THIS SYNTHETIC PLASTERER AT BEDSIDE TO CONTINUE MONITORING PATIENT.
--- NOTE | 2018-12-12 18:05 | NUR ---
PATIENT AGITATED, REFUSING VITALS AT THIS TIME.
--- NOTE | 2018-12-12 18:10 | NUR ---
HOUSEKEEPING IN ROOM TO TAKE OUT GARBAGES. PATIENT ASKS HOUSEKEEPING TO "LEAVE THAT HERE, ITS EVIDENCE AGAINST ME. I NEED THAT DOUBLE BAGGED AND LEFT IN MY POSESSION". PATIENT REORIENTED AND REASSURED THAT GARBAGE WOULD BE DISPOSED OF IN SAFE PLACE. PATIENT INCREASINGLY AGITATED.
--- NOTE | 2018-12-12 19:11 | NUR ---
PATIENT IS CALM NOW AND SITTING IN BEDSIDE RECLINER. PATIENT STILL REFUSING DINNER, STATES HE WOULD LIKE TO GO TO BED SOON, BUT NOT YET. PATIENT VISIBLE FROM NURSES STATION.
--- NOTE | 2018-12-12 20:00 | NUR ---
PATIENT SITTING IN HIS CHAIR IN HIS ROOM WATCHING TV STILL ON 1:1 WATCH.
--- NOTE | 2018-12-12 20:38 | NUR ---
PT IS PREPARING FOR BED, WASHED FACE, BRUSHED TEETH. PT HAS REMADE BED FOR BED. HE IS WANTING TO CALL HIS .
--- NOTE | 2018-12-12 22:09 | NUR ---
PATIENT CURRENTLY IN BED WATCHING TV. PATIENT ONLY ALLOWED US TO TAKE VS WHICH WERE STABLE. REFUSED ASSESSMENT AND MEDS. STILL ON 1:1 WATCH.
--- NOTE | 2018-12-12 22:52 | NUR ---
DEVELOPMENT SCIENTIST ROUNDING NOTE. PT RESTING IN BED WITH EYES CLOSED. PT APPEARS TO BE SLEEPING. PT REMAINS 1:1 WITH RESERVES CLERK STAFF.
--- NOTE | 2018-12-13 00:46 | NUR ---
PATIENT RESTING QUIETLY SUPINE, EYES CLOSED, RSPIRATIONS EVEN AND REGULAR AT 16. CALL LIGHT IN REACH. REMAINS ON 1:1.
--- NOTE | 2018-12-13 03:20 | NUR ---
PATIENT HAS REFUSED ASSESSMENT, CONTINUES TO LAY IN BED, RESPIRATIONS REGULAR AND EVEN AT 16-18. CALL LIGHT IN REACH.
--- NOTE | 2018-12-13 04:27 | NUR ---
PATIENT WOKE UP, SAT UP IN BED AND SET OFF BED ALARM. ASKED PATIENT IF HE NEEDED ANYTHING AND HE SAID,"NO GOD BLESS HAVE A NICE DAY, [facility]." PATIENT DID NOT SPEAK TO STAFF ANY MORE AFTER THIS.
--- NOTE | 2018-12-13 04:34 | NUR ---
PT GOT UP TO USE THE RESTROOM.
--- NOTE | 2018-12-13 05:42 | NUR ---
PATIENT REFUSED ASSESSMENTS AND MEDS, BUT ALLOWED A SET OF VS. PATIENT IS REFUSING TO EAT, HE IS NOT CONFRONTATIONAL LAST NIGHT, BUT STILL NOT REALLY COMMUNICATING WITH STAFF. PATIENT SLEPT A GOOD PART OF THE NIGHT, BUT IS NOW AWAKE AND JUST SITTING ON THE EDGE OF HIS BED. NOTHING MORE TO REPORT AT THIS TIME PATIENT STILL 1:1.
--- NOTE | 2018-12-13 05:59 | NUR ---
USHA FROM [facility] CALLED AGAIN JUST NOW TO MAKE SURE THE PATIENT WAS STILL HERE AND STILL IN NEED OF A BED. I INFORMED HER THAT THE PATIENT IS STILL HERE AND STILL IN NEED OF A BED. I WILL PASS THIS INFO ON TO DAY SHIFT.
--- NOTE | 2018-12-13 07:29 | NUR ---
RECEIVED REPORT FROM NON CLINICAL ADVISOR RN. PT LYING IN BED WITH EYES CLOSED. SITTER AT BEDSIDE. RESPIRATIONS EQUAL AND NONLABORED. VISIBLE FROM NURSING STATION.
--- NOTE | 2018-12-13 07:59 | NUR ---
PT AWAKE AND AGITATED. REFUSING TO EAT OR DRINK AT THIS TIME. STATES HE WANTS TO LEAVE IN A TAXI TO THE [facility]. PT GETTING MORE DIFFICULT TO REDIRRECT. SEUCRITY BEING NOTIFIED.
--- NOTE | 2018-12-13 08:03 | NUR ---
patient is a 1:1 with cna2 alex
--- NOTE | 2018-12-13 08:57 | NUR ---
ATTEMPTED TO ADMINISTER MEDICATIONS. PT REFUSED. WILL TRY AGAIN LATER. PT REMEMBERS REFUSING MEDS LAST NIGHT AND YESTERDAY MORNING AND STATES HE WILL ONLY TAKE MEDICAITONS THAT THE [facility] GIVES HIM. HE DOES NOT THINK ANY OF THE MEDICAITONS WE ARE GIVING ARE FROM THE [facility] AND WILL NOT TAKE THEM.
--- NOTE | 2018-12-13 10:44 | NUR ---
WHEN I GOT HER THIS MORNING PATIENT WAS SLEEPING. 0830 HE WOKE UP AND SAID HE HAD AN APPOINTMENT TO GO TO. HE GOT UPSET WHEN WE DIDN'T CALL FOR A TAXI. SO SECURITY HUTSON CAME IN TO CALM HIM DOWN.
--- NOTE | 2018-12-13 11:09 | NUR ---
PT REPORTING INDEGESTION. PT AGREED TO TAKE MAALOX. STILL REFUSING OTHER MEDICAITONS. DID NOT EAT BREAKFAST. ATE 1 CUP OF APPLE SAUCE.
--- NOTE | 2018-12-13 11:29 | NUR ---
PT LYING IN BED FOR NAP.
--- NOTE | 2018-12-13 12:41 | NUR ---
ROUNDED WITH DR DIAZ. PLAN OF CARE DISCUSSED. PT IS ABLE TO ANSWER MOST QUESTIONS ASKED. HE IS ORIENTED TO TIME PLACE AND SELF. STILL DISORIENTED TO SITUATION. PT AGREEABLE TO DR DIAZ'S PLAN OF CARE. PT UP TO SIDE OF BED EATING LUNCH. CALL LIGHT IN REACH AND SITTER AT BEDSIDE.
--- NOTE | 2018-12-13 13:37 | NUR ---
PATIENT IS CALMER. VERY TALKTIVE. HE IS SITTING ON THE SIDE OF HIS BED WATCHING TV.
--- NOTE | 2018-12-13 13:40 | NUR ---
PATIENT IS LAYING DOWN NOW. BED ALARM ON.
--- NOTE | 2018-12-13 14:58 | NUR ---
PT REQUESTED SPIRITUAL CARE VISIT. PT IS STRUGGLING TO KNOW HOW TO HANDLE RELATIONSHIP WITH SPOUSE. I SUGGESTED THAT HE SEE HIS WAREHOUSE PRICING AND INVENTORY CLERK FOR COAGULATING DRYING SUPERVISOR CARE. HE HAD SOEM QEUSTIONS ABOTU MARRIAGE AND WHAT THE BIBLE HAD TO SAY SO WE SPENT SOME TIME DISCUSSING THE BIBLE WELL. PRAYED WITH PT AT THE END OF HIS VISIT.
--- NOTE | 2018-12-13 15:50 | NUR ---
ORDERED PATIENT A GLASS OF MILK AND A CHOCOLATE CHIP COOKIE. PATIENT ATE AND DRANK IT ALL. NOW HE IS LAYING DOWN IN HIS BED WATCHING TV. BED ALARM ON.
--- NOTE | 2018-12-13 17:39 | NUR ---
IN TO VISIT.
--- NOTE | 2018-12-13 18:04 | NUR ---
PATIENT'S IS IN ROOM. PATIENT IS LAYING IN HIS BED WATCHING TV. BED ALARM IS ON. ALL HE WANTED FOR DINNER WAS A ROOTBEER FLOAT AND A CHOCOLATE MILK SHAKE.
--- NOTE | 2018-12-13 18:46 | NUR ---
PT HAD GOOD DAY. CLEAR TODAY. ORIENTED TO DATE, PLACE, SELF. MORECOOPERATIVE WITH CARES.
--- NOTE | 2018-12-13 18:59 | NUR ---
GOT HIM TWO WARM BLANKETS AND A SODA POP. BEFORE I LEAVE I WILL GET HIM TWO MORE WARM BLANKETS.
--- NOTE | 2018-12-13 19:05 | NUR ---
CHARGE NURSE REPORT RECEIVED FROM JOE. PT 1:1 WITH ENVIRONMENTAL OFFICER, WELL PT IN ROOM VISITING. PT IN BED.
--- NOTE | 2018-12-13 19:20 | NUR ---
BEDSIDE REPORT RECEIVED FROM OFFGOING RN. PT RESTING IN BED VISITING WITH AT BEDSIDE. 1:1 OUTSIDE CONTRACTOR SALES IN ROOM. PT REPORTS INDIGESTION, WOULD LIKE MAALOX. PLAN TO ADMINISTER. PT DENIES FURTHER NEEDS. CALL LIGHT IN REACH.
--- NOTE | 2018-12-13 19:58 | NUR ---
PT ASSESSMENT COMPLETE. PT DENIES PAIN, OR SOB. PT CONTINUES TO REPORT INDIGESTION. SCHEDULED PEPCID, AND PRN MAALOX ADMINISTERED. PT TAKES ALL SCHEDULED MEDICATIONS WITHOUT ISSUE. PT ALERT AND ORIENTED, ABLE TO DISCUSS LIVING IN [place] APPROPRIATELY. ABLE TO MAINTAIN CONVERSATION REGARDING FAMILY AND 'S FAMILY. PT DENIES FURTHER NEEDS AT THIS TIME. 1:1 SEMICONDUCTOR PACKAGES PLATEMAKER AND PT'S IN ROOM. CALL LIGHT IN REACH. ROOM IN VIEW OF RN STATION.
--- NOTE | 2018-12-14 00:32 | NUR ---
pt resting in bed with eyes closed. lying on l side. pt appears to be sleeping. pt remains 1:1. call lightin reach. room in view of rn station.
--- NOTE | 2018-12-14 03:53 | NUR ---
PT RESTING IN BED WITH EYES CLOSED. PT DOES NOT WAKE WHILE FIRE SAFETY INSPECTOR IN ROOM. PT ASSESSMENT COMPLETE. PT NOT DISTURBED FOR ASSESSMENT. CALL LIGHT IN REACH. ROOM IN VIEW OF RN STATION. PT NOT REQUIRING 1:1 SUPERVISION AT THIS TIME.
--- NOTE | 2018-12-14 04:10 | NUR ---
PT SLEPT WELL THIS SHIFT. PT ORIENTED X3 BEFORE FALLING ASLEEP. PT TOOK SCHEDULED MEDS WITHOUT ISSUE. PT DID NOT REQUIRE 1:1 SUPERVISION WHILE ASLEEP. PT CONTINENT OF URINE, USING BATHROOM APPROPRIATELY. NO IV ACCESS. LIFEWAYS TO RECONSULT. AWAITING PLACEMENT.
--- NOTE | 2018-12-14 07:48 | NUR ---
PT REPORT RECEIVED FROM ANGELA ADAMS. PT WOKE AND ASSISTED TO CHAIR AND RESTROOM WITH CITY JAILER. PT APPEARS FAIRLY ALERT AND ORIENTED. STATES HE SLEPT WELL.
--- NOTE | 2018-12-14 08:44 | NUR ---
PT VISITING IN WITH PACKING MACHINE FEEDER. PT WANTED TO HAVE VITAL SIGNS TAKEN. PT IS GOING TO TAKE SHOWER. PT CONTENT AND RELAXED.
--- NOTE | 2018-12-14 10:20 | NUR ---
Pt just returned to his room following a walk down the halls of this department. Pt was accompanied by the aid who remains in his room with him. The left FA dressing was changed after he got out of the shower this AM as there was some drainage noted on the dressing. The wound bed appears healthy with no s/s of infection at this time. Pt tolerated the dressing change well.
--- NOTE | 2018-12-14 10:32 | NUR ---
PT WALKED WITH SALES MARKETING MANAGER IN [place]. PT SITTING IN CHAIR VISITING WITH SALES MARKETING MANAGER.
--- NOTE | 2018-12-14 11:33 | NUR ---
PT IS CURRENTLY SITTING UP IN THE CHAIR AND EATING HIS LUNCH. PT STATES THAT HE HAS NO NEEDS AT THIS TIME. WILL CONTINUE TO MONITOR PT AT THE BEDSIDE.
--- NOTE | 2018-12-14 12:24 | NUR ---
PT SITTING IN CHAIR-VISITING WITH CRISELDA DIOP ON 1. PT WELCOMED ME IN AND I HAD A PLEASANT VISIT. HE SHOOK MY HAND, AND STATED THAT HE IS FEELING BETTER PHYSICALLY ANDSPIRITUALLY TODAY THAN HE HAS FELT THE ENTIRE TIME HE HAS BEEN A PT HERE AT [facility]. I EXTENDED A BLESSING, HE THANKED ME.WILL CONTINUE TO KEEP TRACK OF PT AND FOLLOW NEEDED
--- NOTE | 2018-12-14 12:49 | NUR ---
Pt resting in his recliner and is eating lunch, he appears comfortable and denies any problems. STAFF NURSE MIDWIFE remains in the room with the pt.
--- NOTE | 2018-12-14 13:55 | NUR ---
VS AND I&O'S TAKEN AND DOCUMENTED. PT IS CURRENTLY SITTING UP IN THE CHAIR WATCHING TV. PT HAS NO NEEDS AT THIS TIME. PT IS AWARE TO LET ME KNOW IF HE NEEDS ANYTHING. WILL CONTINUE TO MONITOR PT AT THE BEDSIDE. FRESH WATER GIVEN. CALL LIGHT IS IN REACH.
--- NOTE | 2018-12-14 14:34 | NUR ---
PT STATES THAT HE WOULD LIKE TO LAY DOWN AND TAKE A NAP. PT IS NOW IN BED AND TAKING A NAP. WILL CONTINUE TO MONITOR.
--- NOTE | 2018-12-14 14:45 | NUR ---
Pt sleeping at this time.
--- NOTE | 2018-12-14 15:31 | NUR ---
SPOKE WITH PATIENTS , SELVIN BY PHONE. SHE STATES SHE WAS HERE YESTERDAY AND SHE FEELS HER IS "BACK TO NORMAL". STATES HE HAS SOME MEMORY MISSING BUT OTHERWISE SHE FEELS HE IS DOING WELL. WE DISCUSSED WHAT TO DO NEXT, SHE STATES SHE SPOKE WITH HIM AND HE WANTS TO COME HOME AND FOLLOW UP WITH HIS DOCTORS AT THE [facility]. SHE STATES SHE CAN BRING HIM HOME TOMORROW IF HE CONTINUES LIKE THIS. WE DISCUSSED THAT SHE CAN TALK WITH DR FITZGERALD THIS EVENING WHEN SHE COMES TO VISIT. WILL CONTINUE TO FOLLOW.
--- NOTE | 2018-12-14 16:21 | NUR ---
PT VISITING WITH HIS FRIEND AT THIS TIME. PT LYING IN BED AND DENIES ANY PAIN OR OTHER PROBLEMS. PT ALERT AND ORIENTED TO PERSON, PLACE AND TIME.
--- NOTE | 2018-12-14 17:29 | NUR ---
UPDATED PROG NOTES/NURSES NOTES FAXED TO [facility] [phone]. FAX CONFIRMATION RECEIVED 12/14/18 527PM.
--- NOTE | 2018-12-14 18:25 | NUR ---
PT ALERT AND ORIENTED TO PERSON, PLACE AND TIME THROUGHOUT THIS SHIFT. PT DENIES ANY PAIN OR OTHER PROBLEMS. THE PLAN IS TO DISCHARGE THE PT TOMARROW IF HE CONTINUES TO DO WELL THROUGH THE NIGHT AND HE STATES HE IS EXCITED TO GO HOME TOMORROW.
--- NOTE | 2018-12-14 19:00 | NUR ---
REPORT RECEIVED FROM OFFGOING RNS. PT WALKING LAPS IN [place] WITH HIS .
--- NOTE | 2018-12-14 19:00 | NUR ---
CHARGE ROUNDING DONE. PATIENT UP AMBULATING IN HALLWAY WITH HIS . APPEARS CALM AND PLESANT. NO CONCERNS AT THIS TIME.
--- NOTE | 2018-12-14 20:13 | NUR ---
PT ASSESSMENT COMPLETE. PT DENIES PAIN, NAUSEA, OR SOB. PT ALERT AND ORIENTED X4. PT REPEATS SAME STORIES MULTIPLE TIMES WHILE WAREHOUSE SHIPPING ASSOCIATE IN ROOM. PT PLEASANT. PT ALLOWS VS TO BE TAKEN, TAKES MEDICATION WITHOUT ISSUE. PT REQUESTS ICE WATER AND WARM BLANKET, PROVIDED. PT DENIES FURTHER NEEDS AT THIS TIME. CALL LIGHT IN REACH. ROOM IN VIEW OF RN STATION. PT AT BEDSIDE. PT NOT REQUIRING 1:1 SUPERVISION AT THIS TIME.
--- NOTE | 2018-12-14 21:46 | NUR ---
PER ANGELA ADAMS, 1 MITULT AND Juvencio RAINEY GIVEN TO PATIENT. IS IN THE ROOM.
--- NOTE | 2018-12-15 01:40 | NUR ---
PT RESTING IN BED WITH EYES CLOSED. RESPIRATIONS EVEN AND UNLABORED. PT DOES NOT WAKE WHILE NAIL POLISH BRUSH MACHINE FEEDER AT BEDSIDE. PT NOT WOKEN AT THIS TIME FOR ASSESSMENT. CALL [facility] IN REACH. ROOM IN VIEW OF RN STATION. PT NO REQUIRING 1:1 SUPERVISION AT THIS TIME.
--- NOTE | 2018-12-15 04:30 | NUR ---
PT RESTING IN BED, LYING ON HIS STOMACH. PT DOES NOT WAKE WHILE WEDDING CONSULTANT IN DOORWAY. PT APPEARS TO BE SLEEPING. CALL LIGHT IN REACH. ROOM IN VIEW OF RN STATION. PT DOES NOT REQUIRE 1:1 SUPERVISION AT THIS TIME.
--- NOTE | 2018-12-15 05:54 | NUR ---
PT ALERT AND ORIENTED X 4 EARLY IN SHIFT. TOOK MEDICATION WITHOUT ISSUE. AMBULATED IN [place] WITH HIS PT SLEPT THE REST OF THE NIGHT AFTER GOING TO BED. NO IV ACCESS. PT INDEPENDENT TO SBA. PLAN DC TOMORROW.
--- NOTE | 2018-12-15 07:38 | NUR ---
PATIENT RESTING IN BED. PATIENT'S BREAKFAST ORDERED. CALL LIGHT WITHIN REACH. BED ALARM ON. NO OTHER NEEDS AT THIS TIME
--- NOTE | 2018-12-15 08:00 | NUR ---
SPOKE WITH PATIENT IN ROOM. PATIENT UP IN CHAIR EATING BREAKFAST. PATIENT IS ORIENTED X3. PATIENTS STATES "I HOPE I CAN GO HOME TODAY, SELVIN IS SUPPOSED TO BE HERE AROUND NOON". WE DISCUSSED THAT HE WILL NEED FOLLOW [facility] SOON WITH HIS [facility] DO[facility]. HE STATES "NO PROBLEM, I WANT TO KNOW WHAT HAPPENED TOO". STATES "I THINK THIS STARTED WHEN I HIT MY HEAD ON THE STEERING WHEEL AWHILE BACK". PATIENT ASKING HOW SOON HE CAN GO HOME. DISCUSSED WITH HIM THAT DOCTOR WILL VISIT WITH HIM THIS MORNING AND HE NEEDS TO UNDERSTAND MEDICATIONS AND HOW TO TAKE CARE OF HIS HEALTH AFTER DISCHARGE. HE STATES HE UNDERSTANDS.
--- NOTE | 2018-12-15 08:08 | NUR ---
PATIENT IN BED. PATIENT WALKS TO BATHROOM. PATIENT DID ORAL CARE, WASH HIS FACE AND HANDS AND COMBED HIS HAIR. PATIENT BACKS TO CHAIR TO TAKE A BREAKFAST.
--- NOTE | 2018-12-15 08:30 | NUR ---
PT RESTING IN HIS BED EATING BREAKFAST. HE STATES HE HAS FACE AND LIP PAIN RATED AT 7 RIGHT NOW. PT DENIES ANY OTHER PROBLEMS.
--- NOTE | 2018-12-15 08:59 | NUR ---
PT SITTING UP IN HIS CHAIR AND HE DENIES ANY PAIN OR PROBLEMS. PT ALERT AND ORIENTED TO PERSON, PLACE AND TIME.
--- NOTE | 2018-12-15 09:11 | NUR ---
PATIENT SITTING UP IN CHAIR. RN IN ROOM. VITAL SIGNS AND I&O DONE. CHAIR ALARM ON. CALL LIGHT WITHIN REACH. NO OTHER NEEDS AT THIS TIME
[2018-12-15] MEDS ORDERED: COZAAR50 MG PO (09:33)
[2018-12-15] MEDS ORDERED: NORVASC5 MG PO (09:33)
--- NOTE | 2018-12-15 09:35 | NUR ---
Dr Guillen in the room speaking with the pt about the possible dischange to home today.
[2018-12-15] MEDS ORDERED: QUETIAPINE FUMA25 MG PO (09:36)
--- NOTE | 2018-12-15 11:07 | NUR ---
PT BELIEVES HE IS TO BE DC'D TODAY-SEEMS VERY EXCITED. PT THANKED ME FOR STOPPING BY AND IS LOOKING FORWARD TO SLEEPING IN HIS OWN BED. GAVE A BLESSING AND SHOOK HANDS. WILL FOLLOW NEEDED
--- NOTE | 2018-12-15 11:28 | NUR ---
PATIENT SITTING UP IN CHAIR. FINAL VITAL SIGNS WERE OBTAINED PRIOR TO DISCHARGE FROM THE UNIT
--- NOTE | 2018-12-15 11:35 | NUR ---
DISCHARGE INSTRUCTION GIVEN TO THE PT WITH S/S OF WHEN TO CONTACT HIS PHYSICAN WITH UNDERSTANDING STATED. PT REMAINS ALERT AND ORIENTED. VITAL SIGNS REMAIN STABLE AND THE PT HAS NO IV. FOLLOW UP APPOINTMENTS PROVIDED WITH [facility]. MEDICATION EDUCATION PROVIDE AND PT STATES UNDERSTANDING. PT NOW AWAITING HIS RIDE HOME FROM HIS .
--- NOTE | 2018-12-15 17:20 | NUR ---
CALLED [facility] AND NOTIFIED THEM THAT PT HAD A MAJOR TURN AROUND AND WAS DC HOME TODAY AND PU WITH [facility]IATRIST [facility] SOON. SO WE WOULDN'T NEED THE BED BUT THANKED THEM FOR HOLDING HIS NAME ON THE LIST SO IF A BED OPENED HE WOULD HAVE ONE.
--- NOTE | 2018-12-17 09:15 | NUR ---
FAXED DC SUMMARY TO MAHNAZ AT [facility] [phone]. RECIEVED FAX CONFIRMATION. FAXED DC SUMMARY TO DR BROOKE AT [facility] TO [phone]. RECIEVED FAX CONFIRMATION.
== END 2018-12-15 12:15 | disposition home or self-care (01) | DRG 885 ==
LOC: ED 14:02 → MS 14:04
PROVIDERS: ADMIT Internal Medicine
DX: F32.3 Major depressive disorder, single episode, severe with psychotic features (principal); N39.0 Urinary tract infection, site not specified; I10 Essential (primary) hypertension; G89.4 Chronic pain syndrome; R78.4 Finding of other drugs of addictive potential in blood; K21.9 Gastro-esophageal reflux disease without esophagitis; F43.10 Post-traumatic stress disorder, unspecified; Z78.1 Physical restraint status; Z79.51 Long term (current) use of inhaled steroids; Z79.899 Other long term (current) drug therapy; Z88.5 Allergy status to narcotic agent; Z88.0 Allergy status to penicillin; Z88.8 Allergy status to other drugs, medicaments and biological substances
CPT/HCPCS: 36415; 70450; 70496; 70498; 71045; 80048; 80053; 81001; 82140; 82607; 82803; 83605; 83735; 83930; 84100; 84439; 84443; 84484; 85025; 85610; 85651; 85730; 86703; 86780; 87040; 87077; 87088; 87186; 92507; 92523; 93005; 93010; 96361; 96374; 97167; 97530; 99285-25; J0696; J1200; J1630; J1650; J1953; J2060; J3411; J3480; J7030; J7042; J7060; J7120; Q9967

== ENCOUNTER 2022-05-22 15:46 | Inpatient (IN) | payer OTHER, MEDICARE ==
[~2022-05-22] VITALS: Ht 170.2 cm; Wt 75.2 kg
[~2022-05-22 15:46] MED LIST: ALUM-MAG HYDRO360 ML PO; ARTHRITIS PAI42.5 GM TOP; COZAAR50 MG PO; DAILY VITAMIN1 EAC3 PO; FISH OIL 1,0001 EAC3 PO; GLUCOPHAGE500 MG PO; IBU600 MG PO; KLOR-CON 1010 MEQ PO; LAMICTAL XR50 MG PO; LAMICTAL150 MG PO; LIPITOR20 MG PO; LIPITOR40 MG PO; LOSARTAN POTASS25 MG PO; NEURONTIN300 MG PO; NORTRIPTYLINE H25 MG PO; NORVASC5 MG PO; OMEPRAZOLE20 MG PO; PAMELOR50 MG PO; QUETIAPINE FUMA25 MG PO; REFRESH PLUS1 EACH OPTH; ROBAXIN-750750 MG PO; ROBAXIN500 MG PO; SYMBICORT 80-10.2 GM INH; VENTOLIN HFA18 GM INH; VITAMIN D1000 UNI1 PO
--- OUTSIDE RECORDS SUMMARY | 2022-05-22 15:48 | XMS ---
PreManage Notification: PREETI KAT Security Business Consult Events 1 event(s) in the past 18 months Most recent security events: Elopement at [facility] 04/08/2022 13:47 - Patient eloped before treatment completed. - Patient with suicidal and/or homicidal ideations eloped. - Patient eloped with IV in place. Details: [facility] There are no care providers on record at this time. Jesus has no Care Guidelines for this patient. E.D. VISIT COUNT (12 MO.) 2 [facility] 2 [facility] TOTAL 4 NOTE: Visits indicate total known visits. ED/UCC VISIT TRACKING (12 MO.) 05/22/2022 15:47 [facility] [place] TYPE: Emergency COMPLAINT: - ALTER[facility] DIAGNOSES: - back pain - Low back pain, unspecified 04/08/2022 13:47 [facility] [place] TYPE: Emergency COMPLAINT: - BACK/LEGS/FEET PAIN 09/18/2021 12:[address] [facility] DIAGNOSES: - groin and hip pain - Hip Pain (Non-traumatic) - Low back pain, unspecified INPATIENT VISIT TRACKING (12 MO.) 05/02/2022 09:50 [facility] Randy JACOB TYPE: Surgical Services DIAGNOSES: - Radiculopathy, lumbar region - Spinal stenosis, lumbar region with neurogenic claudication - Spondylolisthesis, lumbar region [email or web address]
[2022-05-22] MEDS ORDERED: OXYCONTIN10 MG PO (16:07)
--- NOTE | 2022-05-23 02:23 | NUR ---
PT ARRIVES TO CCU ROOM 127 A [facility] [address] CONVENIENCE PATIENT. SLEEPING ON ARRIVAL, AWAKENS EASILY ALTHOUGH HE IS TRYING TO GO BACK TO SLEEP, MOVES OVER TO BED FROM [facility] BY SLIDING HIMSELF OVER THEN GOES BACK TO SLEEP. ASSESSMENT DONE. LUNGS CLEAR. PT ANSWERS ALL QUESTIONS WITH "YES" , IF IT IS NOT A YES OR NO QUSTION HE STAYS SILENT NOT ATTEMPTING TO ANSWER. ASKED IF HIS NAME IS SERA "YES", ASKED IF HIS NAME IS RULA "YES". ASKED IF HE IS IN PAIN HE STATES "YES". HE WAS GRUNTING INITIALLY BUT AFTER TOSSING AROUND IN BED A FEW MINUTES HE FALLS BACK TO SLEEP AND NO LONGER GRUNTING. IV WAS STARTED IN LEFT FOREARM WITHOUT DIFFICULTY AND PT TOLERATED WELL, SITE WAS THEN SECURED WITH TAPE AND COBAN. PT ARRIVED ALONE SO ASSESSMENT SCREENING WAS LIMITED. BED ALARM IN PLACE
--- NOTE | 2022-05-23 04:10 | NUR ---
PT CONT TO SLEEP, OCCASIONALLY TOSSING AND TURNING. AWAKENS EASILY TO ASSESSMENT, THAN GOES BACK TO SLEEP. ASSESSMENT UNCHANGED FROM EARLIER.
--- NOTE | 2022-05-23 06:00 | NUR ---
IN TO DO ASSESSMENT AND VS, PT WAKES UP FOR ASSESSMENT. STILL NOT RESPONDING TO QUESTIONS EXCEPT TO SAY YES TO EVERYTHING. BACK TO SLEEP QUICKLY.
[2022-05-23] MEDS ORDERED: ACETAMINOPHEN500 MG PO (08:51)
[2022-05-23] MEDS ORDERED: NORTRIPTYLINE H25 MG PO (08:54)
[2022-05-23] MEDS ORDERED: DOCUSATE SODIU100 MG PO (08:56)
[2022-05-23] MEDS ORDERED: CYCLOBENZAPRINE10 MG PO (08:59)
--- NOTE | 2022-05-23 09:12 | NUR ---
Patient confused, anxious attempting to pull out IV. Patient's respirations 32/min, sp02 90%, placed patient on 3L per oxymask for comfort. Patient unable to tell me his name or birthdate. Pt responds "yes" to my questions. Sat at bedside with patient to calm. Admin prn seroquel per provider order for anxiety. light dimmed for comfort, encouraged patient to calm down. This RN to remain with pt until another staff member can sit with him. IV site patent, fluids infusing per provider order.
[2022-05-23] MEDS ORDERED: TRAZODONE HCL100 MG PO (09:20)
[2022-05-23] MEDS ORDERED: QUETIAPINE FUM200 MG PO (09:25)
[2022-05-23] MEDS ORDERED: DICLOFENAC SODI50 MG PO (09:35)
[2022-05-23] MEDS ORDERED: GLIPIZIDE10 MG PO (09:36)
[2022-05-23] MEDS ORDERED: HYDROXYZINE HCL50 MG PO (09:44)
[2022-05-23] MEDS ORDERED: LIPITOR20 MG PO (09:46)
[2022-05-23] MEDS ORDERED: NORVASC10 MG PO (09:49)
[2022-05-23] MEDS ORDERED: B-121000 MC2 PO (09:52)
[2022-05-23] MEDS ORDERED: MAGNESIUM OXID420 MG PO (09:52)
[2022-05-23] MEDS ORDERED: LAMICTAL25 MG PO (09:57)
--- NOTE | 2022-05-23 10:48 | NUR ---
Patient awake in bed watching tv, no acute distress. Patient is now calm, he is able to provide to me his full name and birthday. Patient is happy and conversing with staff. IV site remains patent, fluids infusing at this time per provider order. Bed alarm intact. Patient tolerated morning medication pass well. No current needs. FBC RN at bedside with pt.
--- NOTE | 2022-05-23 11:34 | NUR ---
ATTEMPTED TO CONTACT PATIENTS AT [phone]. MESSAGE RECVD STATING THE CELL CUSTOMER IS NOT AVAILABLE. WILL CONTINUE TO ATTEMPT TO CONTACT.
--- NOTE | 2022-05-23 12:35 | NUR ---
Patient provided with oxycodone 10mg po at this time for s/s of back pain. Patient moaning and moving about side to side in bed. This RN asked pt if his pain location was in his back, he states "yes". Patient appears to be more anxious again with increased back pain. Encouraged pt to rest. Patient resting on right lateral side. Bed alarm intact.
--- NOTE | 2022-05-23 20:20 | NUR ---
AWAKE, ALERT TO SELF AND PLACE BUT NOT SITUATION. ON ROOM AIR, CLEAR LUNGS, DIM LEFT SIDED. STATED NO BM FOR SEVERAL DAYS. ABD SOFT NON TENDER CLARIBEL. IV INFUSING LFA. BACK BRACE BY BED PT IS TO WEAR IT WHEN UP. PT AWARE. DENIES C/O PAIN, BED ALARM ON. IN ROOM. CALL LIGHT AT [facility]
--- NOTE | 2022-05-23 23:00 | NUR ---
BED ALRM GOING OFF, OUT OF BED, IVF PATENT. "I NEED TO GO TO THE BATHROOM' WALKED TO BR, STEADY, VOIDED, REFUSED TO USE URINAL, BACK TO BED, REPOSITIONED, ON ROOM AIR. BED ALRM BACK ON. FLUIDS AND CALL LIGHT AT HANDS REACH
--- NOTE | 2022-05-23 23:30 | NUR ---
BED ALARM GOING OFF, PT GETTING OUT OF BED, STOOD EDGE OF BED, BACK TO BED, REQUIRED SEVERAL CUES, PLEASANT, REPOSITIONED IN BED, IVF PATENT.
--- NOTE | 2022-05-24 00:42 | NUR ---
BED ALARM SET OFF, PT SBA TO THE TOILET, BACK TO BED, ALARM RESUMED, PT REMINDED TO CALL BEFORE GETTING OOB,
--- NOTE | 2022-05-24 01:05 | NUR ---
on room air, eyes cdlosed, resting, IVF infusing. bed alrm on, call light and fluids at hands reach
--- NOTE | 2022-05-24 02:42 | NUR ---
Resting, eyes closed, no distress, IVF infusing w/o problems, Bed alrm on, call light and fluids at hands reach. charge nurse notified of nursing judgement to let pet sleep and to do 0200 vitals when awake.
--- NOTE | 2022-05-24 03:41 | NUR ---
Awakes easily, coop with vitals, Up to br, voided, declines to use urinal or hat. back to bed, IVF infusing.
--- NOTE | 2022-05-24 04:36 | NUR ---
Pt currently resting, eyes closed, on room air. IVF infusing, covered with ben wrap as pt was pulling at IV site earlier on shift. area patent. alert to self, forgetful and irritable at begining of shift after left , confused, required several cues to get back in to bed, tried getting out of bed several times. walked to br with assist, voiding unmeasureble amounts of urine as he declines to use urinal or measurement hat. Redirectable. declined to use back brace, ofered and tried to place on pt, declined. Pt to use back brace when up due to recent laminectomy. tolerating fluids well, no emesis. Bed alarm on for fall precautions.
--- NOTE | 2022-05-24 05:42 | NUR ---
BED ALARM SET OFF, PT REPOSITONING IN BED, VS TAKEN
--- NOTE | 2022-05-24 07:31 | NUR ---
Patient resting in bed, eyes closed, respirations even and non labored. Bed alarm intact. Patient has no notable distress.
--- NOTE | 2022-05-24 09:07 | NUR ---
TO PT ROOM FOR MEDICATION ADMINISTRATION. GIVEN 5MG OXYCODONE. PT SPEECH CLEAR AND COMMUNICATING IN FULL SENTENCES. CALL LIGHT WITHIN REACH.
--- NOTE | 2022-05-24 13:30 | NUR ---
PT DISCHARGED TO HOME WITH . IV REMOVED. BELONGINGS RETURNED TO PT. VS WNL.
== END 2022-05-24 13:28 | disposition home or self-care (01) | DRG 72 ==
LOC: ED 15:46 → MS 05-23 00:55 → CCU 05-23 00:55 → MS 05-23 08:35
PROVIDERS: ADMIT Internal Medicine; ATTEND Internal Medicine
DX: G93.41 Metabolic encephalopathy (principal); Z20.822 Contact with and (suspected) exposure to COVID-19; I10 Essential (primary) hypertension; E11.9 Type 2 diabetes mellitus without complications; F43.10 Post-traumatic stress disorder, unspecified; F03.90 Unspecified dementia, unspecified severity, without behavioral disturbance, psychotic disturbance, mood disturbance, and anxiety; Z91.14 Patient's other noncompliance with medication regimen; Z98.1 Arthrodesis status; Z98.890 Other specified postprocedural states; Z88.0 Allergy status to penicillin; Z88.5 Allergy status to narcotic agent; Z88.8 Allergy status to other drugs, medicaments and biological substances; Z79.899 Other long term (current) drug therapy
CPT/HCPCS: 36415; 70450; 71045; 80048; 80053; 81001; 85025; 87502; 94640; 94760; A9270; C9803; J3480; J7121; U0003

== ENCOUNTER 2024-03-02 13:57 | Observation (INO) | payer OTHER, MEDICARE ==
[2024-03-02] VITALS (8 sets, daily range): BP systolic 102–165; BP diastolic 55–93
[~2024-03-02] VITALS: Ht 170.2 cm; Wt 61.6 kg
[~2024-03-02 13:57] MED LIST changes: +ACETAMINOPHEN500 MG PO; -ALUM-MAG HYDRO360 ML PO; +ALUM-MAG HYDROX30 M1 PO; +B-121000 MC2 PO; +CYCLOBENZAPRINE10 MG PO; +DICLOFENAC SODI50 MG PO; +DOCUSATE SODIU100 MG PO; +GLIPIZIDE10 MG PO; +HYDROXYZINE HCL50 MG PO; +LAMICTAL25 MG PO; +MAGNESIUM OXID420 MG PO; +NORVASC10 MG PO; +OXYCONTIN10 MG PO; +QUETIAPINE FUM200 MG PO; +TRAZODONE HCL100 MG PO; -VITAMIN D1000 UNI1 PO; +VITAMIN D325 MC2 PO
[2024-03-02 14:34] LABS: BASOPHILS 0.6 % (0-2); EOSINOPHILS 5.1 % (0-6); HEMATOCRIT 43.8 % (35.0-50.0); HEMOGLOBIN 14.2 g/dL (12.0-18.0); LYMPHOCYTES 32.7 % (24-44); MCH 27.9 (27-36); MCHC 32.3 g/dl (30-36); MCV 86.3 fl (81-99); MONOCYTES 7.9 % (0-12); NEUTROPHILS 53.7 % (39-80); PLATELET COUNT 262 K/uL (140-440); RBC 5.08 M/ul (4.3-5.7); RDW 13.9 (10.5-15.0)
[2024-03-02 14:50] LABS: ALBUMIN 3.4 g/dL (3.4-5.0); ALBUMIN/GLOBULIN RATIO 0.97 (1.1-2.4); ALCOHOL, MEDICAL <3 ng/dL (<3); ALKALINE PHOSPHATASE 181 U/L (46-116); ALT (SGPT) 14 U/L (14-59); ANION GAP 14.4 (7-21); AST (SGOT) 9 U/L (15-37); BILIRUBIN, TOTAL 0.4 ng/dL (0.2-1.0); BUN/CREATININE RATIO 23.13 (6.0-28.6); CALCIUM 8.8 mg/dL (8.5-10.1); CARBON DIOXIDE 25 mmol/L (21-32); CHLORIDE 94 mmol/L (98-107); CREATININE, SERUM 1.34 mg/dL (0.70-1.30); GLOMERULAR FILTRATION RATE,EST 56 mL/min (>60); POTASSIUM 4.4 mmol/L (3.5-5.1); PROTEIN, TOTAL 6.9 g/dL (6.4-8.2); UREA NITROGEN 31 mg/dL (7-18)
[2024-03-02 15:04] LABS: BILIRUBIN, URINE NEGATIVE (negative); BLOOD/HGB, URINE NEGATIVE (Negative); KETONE, URINE NEGATIVE (Negative); LEUK ESTERASE, URINE NEGATIVE (negative); NITRITE, URINE NEGATIVE (negative)
[2024-03-02 15:19] LABS: AMPHETAMINES, URINE NEGATIVE (NEGATIVE); BARBITURATES, URINE NEGATIVE (NEGATIVE); BENZODIAZEPINE, URINE NEGATIVE (NEGATIVE); BUPRENORPHINE, URINE NEGATIVE (NEGATIVE); CANNABINOID, URINE NEGATIVE (NEGATIVE); COCAINE, URINE NEGATIVE (NEGATIVE); ECSTASY, URINE NEGATIVE (NEGATIVE); FENTANYL, URINE NEGATIVE (NEGATIVE); METHADONE, URINE NEGATIVE (NEGATIVE); OPIATES, URINE NEGATIVE (NEGATIVE); OXYCODONE, URINE NEGATIVE (NEGATIVE); PHENCYCLIDINE, URINE NEGATIVE (NEGATIVE)
[2024-03-02] MEDS ORDERED: SODIUM CHLORIDE 0.9% 1,000 ML IV ONE (15:30)
[2024-03-02 15:36] LABS: ABO O; ANTIBODY SCREEN NEGATIVE; RH POSITIVE
[2024-03-02] MEDS ORDERED: Insulin Regular, Human 100 UNIT/ML ML IV ONE (15:45)
[2024-03-02] MEDS ORDERED: ENOXAPARIN SODIUM 40 MG/0.4 ML SYR SUB-Q SCH (15:59)
[2024-03-02] MEDS ORDERED: IBLOOD GLUCOSE TEST STRIP 1 EA TEST XX PRN (16:45)
[2024-03-02] MEDS ORDERED: LACTATED RINGER'S 1,000 ML IV SCH (16:45)
[2024-03-02] MEDS ORDERED: ondansetron HCL 4 MG/2 ML VIAL IV PRN (16:45)
[2024-03-02] MEDS ORDERED: DEXTROSE 5% 1,000 ML IV PRN (16:45)
[2024-03-02] MEDS ORDERED: DEXTROSE 50% 50 ML SYR IV PRN ×2 (16:45)
[2024-03-02] MEDS ORDERED: GLUCAGON,HUMAN RECOMBINANT 1 MG/ML VIAL SUB-Q PRN (16:45)
[2024-03-02] MEDS ORDERED: ACETAMINOPHEN 325 MG TAB PO PRN (16:45)
[2024-03-02] MEDS ORDERED: INSULIN LISPRO 100 UNIT/ML ML SUB-Q SCH (17:00)
[2024-03-02] MEDS ORDERED: IBLOOD GLUCOSE TEST STRIP 1 EA TEST VI SCH (17:00)
--- NOTE | 2024-03-02 20:07 | NUR ---
PATIENT IS RESTING IN BED WITH EYES CLSOED, RR 13. CALL LIGHT IN REACH.
--- NOTE | 2024-03-02 21:37 | NUR ---
PATIENT STOOD AT BEDSIDE AND WAS ABLE TO USE URINAL. PATIENT VOIDED. PATIENT IS BACK IN BED RESTING. PATIENTS INTAKE AND OUTPUT RECORDED. PATIENTS VITALS RECORDED. PATIENTS PM MEDS GIVEN PER ORDER. PATIENT RATES PAIN ON THE RIGHT SIDE OF HIS FOREHEAD AT A 7/10, PRN MEDICATION GIVEN PER ORDER-SEE EMAR. PATIENT PROVIDED COOL WASH RAG FOR HIS FOREHEAD. PATIENTS IV INFUSING PER ORDER. PATIENT ASSESMNET COMPLETED. PATIENT IS AAOX4. PATIENT PROVIDED FRESH ICE WATER. PATIENT DENIES ANY FURTHER NEEDS. CALL LIGHT IN REACH.
--- NOTE | 2024-03-02 23:15 | NUR ---
pt ARRIVED TO THE FLOOR VIA BED. ASSESSMENT AND VITAL SIGNS DONE. pt OFFERED A CHANGE OF CLOTHES. pt DENIED. pt DENIES ANY OTHER NEEDS AT THIS TIME. CALL LIGHT WITHIN REACH. NO OTHER NEEDS AT THIS TIME.
--- NOTE | 2024-03-02 23:15 | NUR ---
REPORT GIVEN TO GLENN MILLER. PATIENT TRANSFERED TO MEDICAL FLOOR AND ALL BELONGINGS ARE WITH PATIENT. PATIENT PLACED ON TELE #1.
[2024-03-03 01:28] VITALS: BP 123/52
--- NOTE | 2024-03-03 01:30 | NUR ---
ASSESSMENT AND VITAL SIGNS DONE. pt RESTING IN THE BED. pt DENIES ANY NEEDS AT THIS TIME. CALL LIGHT WITHIN REACH.
--- NOTE | 2024-03-03 03:18 | NUR ---
pt RESTING IN THE BED WITH EYES CLOSED. RR EVEN AND UNLABORED. CALL LIGHT WITHIN REACH.
--- NOTE | 2024-03-03 03:43 | NUR ---
pt CALLED TO USE THE RESTROOM. SBA FOR LINE TUBE MANAGEMENT. pt BACK TO BED. CALL LIGHT WITHIN REACH.
[2024-03-03 05:13] VITALS: BP 114/68
--- NOTE | 2024-03-03 05:13 | NUR ---
pt RESTING IN THE BED. pt ASKING FOR A SNACK. SUGAR FREE JELLO PROVIDED. pt DENIES ANY OTHER NEEDS AT THIS TIME. CALL LIGHT WITHIN REACH.
[2024-03-03 05:27] LABS: BASOPHILS 0.7 % (0-2); EOSINOPHILS 3.4 % (0-6); HEMATOCRIT 39.8 % (35.0-50.0); HEMOGLOBIN 13.4 g/dL (12.0-18.0); LYMPHOCYTES 26.4 % (24-44); MCH 28.4 (27-36); MCHC 33.7 g/dl (30-36); MCV 84.4 fl (81-99); MONOCYTES 6.8 % (0-12); NEUTROPHILS 62.7 % (39-80); PLATELET COUNT 232 K/uL (140-440); RBC 4.71 M/ul (4.3-5.7); RDW 13.9 (10.5-15.0)
[2024-03-03 05:43] LABS: ALBUMIN 2.7 g/dL (3.4-5.0); ALBUMIN/GLOBULIN RATIO 0.93 (1.1-2.4); ANION GAP 10.9 (7-21); BILIRUBIN, TOTAL 0.3 ng/dL (0.2-1.0); BUN/CREATININE RATIO 21.34 (6.0-28.6); CALCIUM 7.9 mg/dL (8.5-10.1); CREATININE, SERUM 0.89 mg/dL (0.70-1.30); MAGNESIUM 1.6 mg/dL (1.8-2.4); POTASSIUM 3.9 mmol/L (3.5-5.1); PROTEIN, TOTAL 5.6 g/dL (6.4-8.2)
--- NOTE | 2024-03-03 07:06 | NUR ---
BEDSIDE REPORT RECEIVED FROM ANGELA ELIZABETH. PT AWAKE AND ALERT, WATCHES TV. NO REQEUSTS AT THIS TIME.
[2024-03-03 09:00] VITALS: BP 141/74
[2024-03-03] MEDS ORDERED: PANTOPRAZOLE SODIUM 40 MG TABEC PO SCH (09:00)
--- NOTE | 2024-03-03 09:00 | NUR ---
Spoke with Mike. He lives at home alone. He has a walker and a cane. He has [address] step into his home and denies issues. He states he no longer drives unless [facility] and then [facility] himself. His only need at this time is education for his meds. He asks if I can assist him with the [facility]. Pt arrived with BS in the 700s and we discussed why. He states he no longer checks his blood sugars, he was testing up to 4 times a day and it hurts. He no longer plans to check with finger sticks. We then discussed Blood glucose sensors and pt states he would be willing to use one of these. He states he has [facility] several [facility] through [facility] but has not received a reply. Pt states he provides his own care, shops, cooks, cleans. Let him know I will contact the [facility] and request a glucose senor for him and will contact Lucy STEELE to see if he qualifies for the home based program. Pt tells he at the end of our conversation he lost his license as he fell at the [facility]. A few days after his fall he recieved a letter they had pulled his license. I will contact the [facility].
[2024-03-03] MEDS ORDERED: VOLTAREN ARTHRI20 GM TOP (09:01)
[2024-03-03] MEDS ORDERED: GLIPIZIDE10 MG PO (09:05)
[2024-03-03] MEDS ORDERED: CLARITIN10 MG PO (09:06)
[2024-03-03] MEDS ORDERED: TRAZODONE HCL100 MG PO (09:14)
[2024-03-03] MEDS ORDERED: MAGNESIUM SULFATE 2 GM/50 ML BAG IV ONE (09:15)
--- NOTE | 2024-03-03 09:16 | NUR ---
MED REC COMPLETE
[2024-03-03 10:16] VITALS: BP 141/74
--- NOTE | 2024-03-03 10:21 | NUR ---
UR NOTE OBSERVATION ORDER 03/02/24 1555 EXPECTED <2 [place] PRIMARY INSURANCE: [facility] SECONDARY: MEDICARE
--- NOTE | 2024-03-03 10:40 | NUR ---
VISITED DURING SPIRITUAL CARE ROUNDS. LISTENED EMPATHETICALLY PT TALKED OF RECENT HEALTH STRUGGLES, MONIQUE PRACTICES. PROVIDED SUPPORTIVE PRESENCE, HOSPITALITY, PRAYER.
--- NOTE | 2024-03-03 11:50 | NUR ---
Discussed this pt with Dr. Singh. He will write orders for a Dexcom G7 and I will fax to the [place]. The pt wants a sensor today. I explained to him, these require prior auth. Pt states he will pay out of pocket. I let him know this could be over $200. Pt wants to get one at [facility] on the way home. Dr. Singh will write a second Rx for pt to brass pickler from [facility] out of pocket. I called the [facility] pharmacy and [facility] and they do have Dexcoms. I spoke with Oziel, the pts pharmacy and the will not bill medicare for Dexcoms and the require prior auth.
[2024-03-03] MEDS ORDERED: PHARMACY RENAL DOSE ADJUSTMENT 1 DOSE MISC PO SCH (12:00)
--- NOTE | 2024-03-03 12:37 | NUR ---
PT AWAKE SITTING UP IN BED, FINISHED LUNCH TRAY W/O DIFFICULTY. TRAY REMOVED FROM ROOM. PT STATES NO FURTHER NEEDS AT THIS TIME, CALL LIGHT WITHIN REACH.
[2024-03-03] MEDS ORDERED: COZAAR50 MG PO (13:10)
[2024-03-03] MEDS ORDERED: METFORMIN HCL500 MG PO (13:13)
[2024-03-03 13:47] VITALS: BP 133/69
--- NOTE | 2024-03-03 15:00 | NUR ---
Spoke with Mike. He is getting ready to go home. Gave him the Rx for [facility] and the will assist him to use a Good RX card. I called Lucy Brush MSW at the [facility]. She will work on Home Based care for this pt. She was able to give me Dr. Cervantes's team fax and I faxed the H&P, DC summary, labs, and Rx for Dexcom G7 to their team.
--- NOTE | 2024-03-03 16:18 | NUR ---
IV REMOVED, TIP INTACT, GAUZE AND COBAN DRESSING APPLIED TO SITE, PT TOLERATED WELL. TELEMETRY REMOVED. PT DRESSES SELF. DISCUSSED DISCHARGE INSTRUCTIONS WITH PT, PT VERBALIZES UNDERSTANDING. PT LEAVES UNIT AMBULATORY WITH WALKER, ESCORTED BY THIS RN TO TAXI.
== END 2024-03-03 16:18 | disposition home or self-care (01) ==
LOC: ED 13:57 → CCU 13:58 → MS 22:52
PROVIDERS: Emergency Medicine; ADMIT Internal Medicine; ATTEND Internal Medicine
DX: E11.65 Type 2 diabetes mellitus with hyperglycemia (principal); I10 Essential (primary) hypertension; R74.8 Abnormal levels of other serum enzymes; E87.1 Hypo-osmolality and hyponatremia; Z88.0 Allergy status to penicillin; Z88.8 Allergy status to other drugs, medicaments and biological substances; Z88.5 Allergy status to narcotic agent; Z79.899 Other long term (current) drug therapy; Z91.148 Patient's other noncompliance with medication regimen for other reason
CPT/HCPCS: 36415; 70450; 71045; 72125; 80053; 80307; 81003; 83036; 83690; 83735; 85025; 86850; 86900; 86901; 96365; 96372; 96374; 99285-25; A9270; G0378; G0480; J1650; J1815; J3475; J7030; J7121

== ENCOUNTER 2024-03-19 12:19 | Emergency (ER) | payer OTHER, MEDICARE ==
[~2024-03-19] VITALS: Ht 170.2 cm; Wt 64.0 kg
[~2024-03-19 12:19] MED LIST changes: +CLARITIN10 MG PO; +METFORMIN HCL500 MG PO; +VOLTAREN ARTHRI20 GM TOP
--- OUTSIDE RECORDS SUMMARY | 2024-03-19 12:26 | XMS ---
PreManage Notification: PREETI KAT Security Sourcing Consultant Events No recent Security Events currently on file CRITERIA MET - [place] [facility] - 2 Visits in 30 Days CARE PROVIDERS There are no care providers on record at this time. Jesus has no Care Guidelines for this patient. [place] [facility] (12 MO.) [facility] NOTE: Visits indicate total known visits[facility] ED/[facility] (12 MO.) 03[facility]19[facility]2024 12:20 [facility] [place] [facility]: Emergency COMPLAINT: - HIGH BLOOD SUGAR 03/02/2024 13:57 [facility] [place] TYPE: Emergency COMPLAINT: - HEAD INJURY INPATIENT VISIT TRACKING (12 MO.) 03/02/2024 13:58 [facility] [place] TYPE: Observation COMPLAINT: - HHS DIAGNOSES: - Abnormal levels of other serum enzymes - Allergy status to narcotic agent - Allergy status to other drugs, medicaments and biological substances - Allergy status to penicillin - Essential (primary) hypertension - Hyperglycemia, unspecified - Hypo-osmolality and hyponatremia - Other supervisor intermediates (current) drug therapy - Patient's other noncompliance with medication regimen for other reason - Type 2 diabetes mellitus with hyperglycemia [email or web address]
[2024-03-19] MEDS ORDERED: SODIUM CHLORIDE 0.9% 1,000 ML IV PRN (12:45)
[2024-03-19 12:57] LABS: BASOPHILS 1.9 % (0-2); EOSINOPHILS 10.1 % (0-6); HEMATOCRIT 42.2 % (35.0-50.0); HEMOGLOBIN 13.8 g/dL (12.0-18.0); LYMPHOCYTES 15.3 % (24-44); MCH 28.1 (27-36); MCHC 32.8 g/dl (30-36); MCV 85.7 fl (81-99); MONOCYTES 6.5 % (0-12); NEUTROPHILS 66.2 % (39-80); PLATELET COUNT 254 K/uL (140-440); RBC 4.92 M/ul (4.3-5.7); RDW 14.4 (10.5-15.0)
[2024-03-19 13:13] LABS: ALBUMIN 3.3 g/dL (3.4-5.0); ANION GAP 14.2 (7-21); BILIRUBIN, TOTAL 0.4 ng/dL (0.2-1.0); BUN/CREATININE RATIO 20.14 (6.0-28.6); CALCIUM 8.7 mg/dL (8.5-10.1); CREATININE, SERUM 1.34 mg/dL (0.70-1.30); POTASSIUM 4.2 mmol/L (3.5-5.1); PROTEIN, TOTAL 6.6 g/dL (6.4-8.2)
[2024-03-19 15:01] LABS: BILIRUBIN, URINE NEGATIVE (negative); BLOOD/HGB, URINE NEGATIVE (Negative); KETONE, URINE NEGATIVE (Negative); LEUK ESTERASE, URINE NEGATIVE (negative); NITRITE, URINE NEGATIVE (negative)
[2024-03-19 17:00] VITALS: BP 152/65
--- NOTE | 2024-03-20 19:08 | EKG ---
[facility] [address] [place], [place] [address] Signed Normal sinus rhythm Normal ECG Confirmed by Prudencio Ruiz ([id number]) on 03/20/2024 7:08:12 PM Electronically Signed By: PRUDENCIO RUIZ MD 03/20/24 1908 PATIENT NAME: PREETI KAT MIKA Electrocardiogram DATE OF : 48 PHYSICIAN: PRUDENCIO RUIZ MD REPORT #: [id number] REPORT IS CONFIDENTIAL AND NOT TO BE RELEASED WITHOUT AUTHORIZATION
--- NOTE | 2024-03-22 07:06 | EKG ---
[facility] [address] [place], [place] [address] Signed Normal sinus rhythm Normal ECG When compared with ECG of 26-NOV-2018 16:13, No significant change was found Confirmed by Prudencio Ruiz ([id number]) on 03/22/2024 7:06:26 AM Electronically Signed By: PRUDENCIO RUIZ MD 03/22/24 0706 PATIENT NAME: PREETI KAT MIKA Electrocardiogram DATE OF : 48 PHYSICIAN: PRUDENCIO RUIZ MD REPORT #: [id number] REPORT IS CONFIDENTIAL AND NOT TO BE RELEASED WITHOUT AUTHORIZATION
== END 2024-03-19 16:49 | disposition home or self-care (01) ==
LOC: ED 12:19
PROVIDERS: Emergency Medicine
DX: R42 Dizziness and giddiness (principal); E11.65 Type 2 diabetes mellitus with hyperglycemia; I10 Essential (primary) hypertension; Z88.0 Allergy status to penicillin; Z88.8 Allergy status to other drugs, medicaments and biological substances; Z88.5 Allergy status to narcotic agent; Z79.899 Other long term (current) drug therapy; Z79.84 Long term (current) use of oral hypoglycemic drugs
CPT/HCPCS: 36415; 80053; 81003; 84484; 85025; 93005; 93010; 99285-25; J7030